=== PATIENT | female | born 1945 | race Caucasian/White ===

== ENCOUNTER → 2016-05-11 | Outpatient (CLI) | payer MEDICARE, OTHER ==
[~2016-05-11] VITALS: Ht 158.8 cm; Wt 77.1 kg
[~2016-05-11] MED LIST: ADENOSINE IV ONE; CELE100C82 PO; ETH1T PO; FESO4TAB PO; GIVE UN DILUTED IV ONE; LISI-646 PO; NAPR220C PO; ROPI2TAB31 PO; SIMV10TA84 PO; TRAZ50TA2 PO
== END | disposition home or self-care (01) ==
LOC: Rad HDHVI 10:01
PROVIDERS: ATTEND Internal Medicine Cardiovascular Disease
DX: R10.30 Lower abdominal pain, unspecified (principal); I10 Essential (primary) hypertension; E78.00 Pure hypercholesterolemia, unspecified
CPT/HCPCS: 78452; 93005; 96374; 96375; A9500; J0153

== ENCOUNTER → 2016-05-12 | Outpatient (CLI) | payer MEDICARE, OTHER ==
[~2016-05-12] MED LIST changes: -ADENOSINE IV ONE; -GIVE UN DILUTED IV ONE
== END | disposition home or self-care (01) ==
LOC: Rad HDHVI 09:29
PROVIDERS: ATTEND Internal Medicine Cardiovascular Disease
DX: K42.9 Umbilical hernia without obstruction or gangrene (principal); K59.00 Constipation, unspecified; I70.8 Atherosclerosis of other arteries; I70.0 Atherosclerosis of aorta
CPT/HCPCS: 74176

== ENCOUNTER → 2016-08-22 | Outpatient (CLI) | payer MEDICARE, OTHER ==
[2016-08-22 12:31] LABS: Basophils # (auto) 0.1 uL; Basophils % (auto) 0.7 % (0.0-2.0); DEFINITIVE VIEW TRANSMISSION; Eosinophils # (auto) 0 uL; Eosinophils % (auto) 0.5 % (0.0-7.0); Hematocrit 43.3 % (36.0-46.0); Hemoglobin 14.2 g/dL (12.2-16.2); Lymphocytes # (auto) 1.4 uL; Lymphocytes % (auto) 16.3 % (10.0-50.0); Mean Corpuscular Hemoglobin 26.2 pg (28.0-32.0); Mean Corpuscular Hgb Conc. 32.8 g/dL (32.0-36.0); Mean Corpuscular Volume 79.9 fL (80.0-100.0); Mean Platelet Volume 11.3 fL (7.4-10.4); Monocytes # (auto) 0.5 uL; Neutrophils # (auto) 6.6 uL; Neutrophils % (auto) 76.5 % (37.0-80.0); Platelet Count (auto) 358 10^3/uL (140-450); Red Cell Distribution Width 18.4 % (11.6-16.0); White Blood Cell 8.6 10^3/uL (4.4-10.8)
[2016-08-22 12:33] LABS: Urine Bilirubin Negative (Negative); Urine Blood Negative /uL (Negative); Urine Color Yellow (Yellow); Urine Glucose Normal (Normal); Urine Ketone Negative (Negative); Urine Nitrite Negative (Negative); Urine Urobilinogen Normal (Negative); Urine pH 5.5 (5.0-8.0)
[2016-08-22 12:52] LABS: Albumin 3.9 g/dL (3.4-5.0); Bilirubin, Direct 0.2 mg/dL (0-0.2); Bilirubin, Total 0.4 mg/dL (0.2-1.0); Calcium 9.2 mg/dL (8.5-10.1); Potassium 4.9 mmol/L (3.5-5.1); Total Protein 7.7 g/dL (6.4-8.2)
== END | disposition home or self-care (01) ==
LOC: LAB 07:58
PROVIDERS: ATTEND Internal Medicine Cardiovascular Disease
DX: I10 Essential (primary) hypertension (principal); E78.00 Pure hypercholesterolemia, unspecified; K74.1 Hepatic sclerosis; E11.9 Type 2 diabetes mellitus without complications; E03.9 Hypothyroidism, unspecified; D64.9 Anemia, unspecified; E55.9 Vitamin D deficiency, unspecified; N39.0 Urinary tract infection, site not specified
CPT/HCPCS: 36415; 80048; 80061; 80076; 81003; 82306; 83036; 84443; 85025

== ENCOUNTER → 2017-03-28 | Outpatient (CLI) | payer MEDICARE ==
[~2017-03-28] VITALS: Ht 33 cm; Wt 0.5 kg
[~2017-03-28] MED LIST changes: +CYANOCOBALAMIN (B-12) 1000 MCG/1 ML VIAL IM ONE; +CYANOCOBALAMIN (B-12) 1000 MCG/1 ML VIAL ONE; +LEVOFLOXACIN 500 MG TAB ONE; +LEVOFLOXACIN 500 MG TAB PO ONE
[2017-03-28 10:15] VITALS: BP 125/58
[2017-03-28 11:20] VITALS: BP 124/70
[2017-03-28 16:42] LABS: Basophils # (auto) 0 uL; Eosinophils # (auto) 0 uL; Eosinophils % (auto) 0.5 % (0.0-7.0); Hematocrit 40.3 % (36.0-46.0); Mean Corpuscular Volume 80.7 fL (80.0-100.0); Monocytes # (auto) 0.5 uL; Neutrophils # (auto) 3.2 uL; Red Blood Cells 4.99 10^6/uL (4.0-5.20); White Blood Cell 4.7 10^3/uL (4.4-10.8)
[2017-03-28 16:55] LABS: Albumin 3.1 g/dL (3.4-5.0); BUN/Creatinine Ratio 17.7; Bilirubin, Total 0.1 mg/dL (0.2-1.0); Calcium 8.3 mg/dL (8.5-10.1); Potassium 3.5 mmol/L (3.5-5.1); Total Protein 6.5 g/dL (6.4-8.2)
[2017-03-28 16:57] LABS: Basophils % (auto) 0.5 % (0.0-2.0); Lymphocytes % (auto) 19.1 % (10.0-50.0); Monocytes % (auto) 10.7 % (0.0-12.0); Neutrophils % (auto) 69.2 % (37.0-80.0)
[2017-03-28 16:58] LABS: Hemoglobin 13.2 g/dL (12.2-16.2); Lymphocytes # (auto) 0.9 uL; Mean Corpuscular Hemoglobin 26.4 pg (28.0-32.0); Mean Corpuscular Hgb Conc. 32.7 g/dL (32.0-36.0); Nucleated Red Blood Cells % 0.9 %; Platelet Count (auto) 334 10^3/uL (140-450); Red Cell Distribution Width 18.9 % (11.8-14.3)
== END | disposition home or self-care (01) ==
LOC: CHF HDHVI 10:21
PROVIDERS: ATTEND Internal Medicine Cardiovascular Disease
DX: J40 Bronchitis, not specified as acute or chronic (principal); D64.9 Anemia, unspecified; E55.9 Vitamin D deficiency, unspecified; I10 Essential (primary) hypertension
CPT/HCPCS: 36415; 71046; 80053; 82306; 85025; 96372; G0463; J3420

== ENCOUNTER → 2017-04-02 | Outpatient (CLI) | payer MEDICARE ==
[~2017-04-02] MED LIST changes: -LEVOFLOXACIN 500 MG TAB ONE; -LEVOFLOXACIN 500 MG TAB PO ONE
[2017-04-02 12:00] VITALS: BP 141/64
[2017-04-02 13:10] VITALS: BP 127/73
== END | disposition home or self-care (01) ==
LOC: CHF HDHVI 11:58
PROVIDERS: ATTEND Internal Medicine Cardiovascular Disease
DX: D64.9 Anemia, unspecified (principal); R09.3 Abnormal sputum; R05 Cough
CPT/HCPCS: 87070; 87205; 96372; G0463; J3420

== ENCOUNTER → 2017-08-14 | Outpatient (CLI) | payer MEDICARE ==
[~2017-08-14] MED LIST changes: -CYANOCOBALAMIN (B-12) 1000 MCG/1 ML VIAL IM ONE; -CYANOCOBALAMIN (B-12) 1000 MCG/1 ML VIAL ONE
[2017-08-14 16:01] LABS: Albumin 3.6 g/dL (3.4-5.0); BUN/Creatinine Ratio 24.7; Calcium 8.8 mg/dL (8.5-10.1); Potassium 4.1 mmol/L (3.5-5.1)
[2017-08-14 16:03] LABS: Bilirubin, Total 0.3 mg/dL (0.2-1.0); Total Protein 7.5 g/dL (6.4-8.2)
[2017-08-14 16:09] LABS: Basophils # (auto) 0.1 uL; Basophils % (auto) 0.6 % (0.0-2.0); Eosinophils # (auto) 0.1 uL; Monocytes # (auto) 0.7 uL; Nucleated Red Blood Cells % 0.2 %
[2017-08-14 16:11] LABS: Eosinophils % (auto) 0.7 % (0.0-7.0); Hematocrit 43.5 % (36.0-46.0); Lymphocytes # (auto) 0.8 uL; Lymphocytes % (auto) 9.5 % (10.0-50.0); Mean Corpuscular Hemoglobin 26.1 pg (28.0-32.0); Mean Corpuscular Hgb Conc. 32.2 g/dL (32.0-36.0); Mean Corpuscular Volume 81.2 fL (80.0-100.0); Monocytes % (auto) 7.5 % (0.0-12.0); Neutrophils # (auto) 7.1 uL; Neutrophils % (auto) 81.7 % (37.0-80.0); Platelet Count (auto) 373 10^3/uL (140-450); Red Blood Cells 5.36 10^6/uL (4.0-5.20); White Blood Cell 8.7 10^3/uL (4.4-10.8)
== END | disposition home or self-care (01) ==
LOC: LAB 12:01
PROVIDERS: ATTEND Internal Medicine
DX: D64.9 Anemia, unspecified (principal); R53.81 Other malaise; I10 Essential (primary) hypertension; E11.9 Type 2 diabetes mellitus without complications; E03.9 Hypothyroidism, unspecified; E78.00 Pure hypercholesterolemia, unspecified
CPT/HCPCS: 36415; 80053; 85025

== ENCOUNTER 2017-09-21 07:46 | Emergency (ER) | payer MEDICARE ==
[~2017-09-21] VITALS: Ht 157.5 cm; Wt 68.0 kg
[2017-09-21 07:56] VITALS: BP 153/53
[2017-09-21] MEDS ORDERED: KETOROLAC TROMETH 60MG/2ML VIAL IM ONE (08:45)
== END 2017-09-21 09:07 | disposition home or self-care (01) ==
LOC: ER 07:46
DX: S46.912A Strain of unspecified muscle, fascia and tendon at shoulder and upper arm level, left arm, initial encounter (principal); K21.9 Gastro-esophageal reflux disease without esophagitis; E78.5 Hyperlipidemia, unspecified; I10 Essential (primary) hypertension; Z90.710 Acquired absence of both cervix and uterus; Z90.49 Acquired absence of other specified parts of digestive tract; Z88.0 Allergy status to penicillin; Z88.8 Allergy status to other drugs, medicaments and biological substances; W18.39XA Other fall on same level, initial encounter; Y93.89 Activity, other specified; Y92.89 Other specified places as the place of occurrence of the external cause; Y99.8 Other external cause status
CPT/HCPCS: 73030; 93005; 96372; 99284; J1885

== ENCOUNTER 2017-09-21 21:13 | Emergency (ER) | payer MEDICARE ==
[~2017-09-21] VITALS: Ht 167.6 cm; Wt 63.5 kg
[2017-09-21 22:14] LABS: Urine Bacteria FEW /hpf (None Seen); Urine Blood Negative /uL (Negative); Urine Mucus FEW (None Seen); Urine Specific Gravity 1.033 (1.001-1.035); Urine WBC 19 /hpf (0 - 5)
[2017-09-22] MEDS ORDERED: KETOROLAC TROMETH 60MG/2ML VIAL IM ONE (01:15)
[2017-09-22 01:54] VITALS: BP 145/76
== END 2017-09-22 01:53 | disposition home or self-care (01) ==
LOC: EDBD 21:13 → ER 21:16
DX: M23.92 Unspecified internal derangement of left knee (principal); K21.9 Gastro-esophageal reflux disease without esophagitis; E78.5 Hyperlipidemia, unspecified; I10 Essential (primary) hypertension; Z90.710 Acquired absence of both cervix and uterus; Z88.0 Allergy status to penicillin; Z91.041 Radiographic dye allergy status; W20.8XXA Other cause of strike by thrown, projected or falling object, initial encounter; Y93.89 Activity, other specified; Y92.89 Other specified places as the place of occurrence of the external cause; Y99.8 Other external cause status
CPT/HCPCS: 73552; 73562; 81001; 96372; 99285; J1885

== ENCOUNTER → 2018-01-17 | Outpatient (CLI) | payer MEDICARE ==
[~2018-01-17] VITALS: Ht 157.5 cm; Wt 72.6 kg
[~2018-01-17] MED LIST changes: +ADENOSINE 61 MG in GIVE UN-DILUTED 0 ML IV ONE; +ADENOSINE 90 MG/30 ML INJ IV ONE
== END | disposition home or self-care (01) ==
LOC: Rad HDHVI 08:32
PROVIDERS: ATTEND Internal Medicine Cardiovascular Disease
DX: I10 Essential (primary) hypertension (principal); S83.2 Tear of meniscus, current injury; E78.5 Hyperlipidemia, unspecified; I20.9 Angina pectoris, unspecified; F43.9 Reaction to severe stress, unspecified; F41.9 Anxiety disorder, unspecified; X58.XXXS Exposure to other specified factors, sequela
CPT/HCPCS: 78452; 93005; 96374; 96375; A9500; J0153

== ENCOUNTER → 2018-04-23 | Outpatient (CLI) | payer MEDICARE ==
[~2018-04-23] MED LIST changes: -ADENOSINE 61 MG in GIVE UN-DILUTED 0 ML IV ONE; -ADENOSINE 90 MG/30 ML INJ IV ONE
== END | disposition home or self-care (01) ==
LOC: Rad HDHVI 15:17
PROVIDERS: ATTEND Internal Medicine
DX: M19.071 Primary osteoarthritis, right ankle and foot (principal)
CPT/HCPCS: 73630

== ENCOUNTER → 2018-11-14 | Outpatient (CLI) | payer MEDICARE ==
[2018-11-14 12:09] LABS: Urine Blood Negative /uL (Negative); Urine Specific Gravity 1.017 (1.001-1.035)
[2018-11-14 12:16] LABS: Basophils # (auto) 0.1 uL; Basophils % (auto) 0.8 % (0.0-2.0); Eosinophils # (auto) 0.1 uL; Lymphocytes # (auto) 0.7 uL; Lymphocytes % (auto) 9.5 % (10.0-50.0); Monocytes # (auto) 0.6 uL
[2018-11-14 12:18] LABS: Eosinophils % (auto) 1.8 % (0.0-7.0); Hematocrit 40.7 % (36.0-46.0); Hemoglobin 13.2 g/dL (12.2-16.2); Mean Corpuscular Hemoglobin 26.7 pg (28.0-32.0); Mean Corpuscular Hgb Conc. 32.4 g/dL (32.0-36.0); Mean Corpuscular Volume 82.3 fL (80.0-100.0); Monocytes % (auto) 8.2 % (0.0-12.0); Neutrophils # (auto) 6.2 uL; Neutrophils % (auto) 79.7 % (37.0-80.0); Platelet Count (auto) 331 10^3/uL (140-450); Red Blood Cells 4.94 10^6/uL (4.0-5.20); Red Cell Distribution Width 18.4 % (11.8-14.3); White Blood Cell 7.7 10^3/uL (4.4-10.8)
[2018-11-14 12:44] LABS: Free T4 (Free Thyroxine) 1.12 ng/dL (0.89-1.76)
[2018-11-14 12:49] LABS: Albumin 3.3 g/dL (3.4-5.0); BUN/Creatinine Ratio 14.1; Calcium 8.7 mg/dL (8.5-10.1); Potassium 3.8 mmol/L (3.5-5.1)
[2018-11-14 12:52] LABS: Bilirubin, Total 0.2 mg/dL (0.2-1.0); Total Protein 6.6 g/dL (6.4-8.2)
== END | disposition home or self-care (01) ==
LOC: LAB 08:51
PROVIDERS: ATTEND Internal Medicine
DX: E03.9 Hypothyroidism, unspecified (principal); K90.9 Intestinal malabsorption, unspecified; N39.0 Urinary tract infection, site not specified; D51.9 Vitamin B12 deficiency anemia, unspecified; Z79.899 Other long term (current) drug therapy
CPT/HCPCS: 36415; 80053; 80061; 81003; 82306; 82607; 83036; 84439; 84443; 85025; 87086

== ENCOUNTER → 2018-11-15 | Outpatient (CLI) | payer MEDICARE ==
[~2018-11-15] MED LIST changes: +CYANOCOBALAMIN (B-12) 1000 MCG/1 ML VIAL ONE
== END | disposition home or self-care (01) ==
LOC: Rad HDHVI 11:01
PROVIDERS: ATTEND Internal Medicine
DX: M79.604 Pain in right leg (principal); W19.XXXA Unspecified fall, initial encounter
CPT/HCPCS: 73590; J3420

== ENCOUNTER 2019-04-03 07:22 | Emergency (ER) | payer MEDICARE ==
[~2019-04-03] VITALS: Ht 157.5 cm; Wt 70.3 kg
[~2019-04-03 07:22] MED LIST changes: -CYANOCOBALAMIN (B-12) 1000 MCG/1 ML VIAL ONE
[2019-04-03 07:50] LABS: Hemoglobin 12.9 g/dL (12.2-16.2); White Blood Cell 11.2 10^3/uL (4.4-10.8)
[2019-04-03 07:52] LABS: Hematocrit 38.9 % (36.0-46.0); Mean Corpuscular Hemoglobin 27.3 pg (28.0-32.0); Mean Corpuscular Hgb Conc. 33.3 g/dL (32.0-36.0); Mean Corpuscular Volume 82.1 fL (80.0-100.0); Platelet Count (auto) 404 10^3/uL (140-450); Red Blood Cells 4.73 10^6/uL (4.0-5.20); Red Cell Distribution Width 17.1 % (11.8-14.3)
[2019-04-03 07:56] LABS: Band Neutrophils % (manual) 0; Basophils % (manual) 0 (0.0-2.0); Blast Cells 0; Metamyelocytes % 0; Myelocytes % 0; Promyelocytes % 0; Reactive Lymphocytes 0
[2019-04-03 08:06] LABS: Eosinophils % (manual) 1 (0-7); Lymphocytes % (manual) 14 (10.0-50.0); Monocytes % (manual) 7 (0-12)
[2019-04-03 08:10] LABS: Albumin 3.2 g/dL (3.4-5.0); Calcium 8.3 mg/dL (8.5-10.1); Potassium 3.6 mmol/L (3.5-5.1)
[2019-04-03 08:12] LABS: BUN/Creatinine Ratio 20.3; Bilirubin, Total 0.1 mg/dL (0.2-1.0); Total Protein 6.4 g/dL (6.4-8.2)
[2019-04-03 09:35] LABS: Urine Bacteria FEW /hpf (None Seen); Urine Blood Negative /uL (Negative); Urine Specific Gravity 1.016 (1.001-1.035); Urine WBC 1 /hpf (0 - 5)
[2019-04-03] MEDS ORDERED: ONDANSETRON HCL 4 MG/2 ML VIAL IV ONE (10:15)
[2019-04-03] MEDS ORDERED: MORPHINE SULF INJ 2 MG/ML SYRINGE 1ML IV ONE (10:15)
[2019-04-03 10:49] VITALS: BP 146/71
== END 2019-04-03 12:48 | disposition home or self-care (01) ==
LOC: ER 07:22
DX: I83.893 Varicose veins of bilateral lower extremities with other complications (principal); I10 Essential (primary) hypertension; N39.0 Urinary tract infection, site not specified; D72.829 Elevated white blood cell count, unspecified; F41.9 Anxiety disorder, unspecified; K21.9 Gastro-esophageal reflux disease without esophagitis; E78.5 Hyperlipidemia, unspecified; Z88.0 Allergy status to penicillin; Z91.041 Radiographic dye allergy status
CPT/HCPCS: 36415; 71045; 80053; 81001; 83880; 85007; 85027; 93970; 99284; J2270; J2405

== ENCOUNTER → 2019-04-04 | Outpatient (CLI) | payer MEDICARE | END | disposition home or self-care (01) | LOC: LAB 10:25 | PROVIDERS: ATTEND Internal Medicine Cardiovascular Disease | DX: R94.4 Abnormal results of kidney function studies (principal) | CPT/HCPCS: 36415; 82565 ==

== ENCOUNTER → 2019-04-07 | Outpatient (CLI) | payer MEDICARE ==
[~2019-04-07] VITALS: Ht 30.5 cm; Wt 70.3 kg
[~2019-04-07] MED LIST changes: +diphenhdrAMINE HCL 50 MG/1 ML VL IM ONE; +diphenhdrAMINE HCL 50 MG/1 ML VL ONE; +methylPREDNISolone SOD SUCC 125 MG/2 ML VL IV ONE; +methylPREDNISolone SOD SUCC 125 MG/2 ML VL ONE
[2019-04-07 10:05] VITALS: BP 133/61
[2019-04-07 10:08] VITALS: BP 133/61
--- NOTE | 2019-04-07 10:15 | NUR ---
IV insertion IV access obtained, via clean sterile technique by inserting RFA gauge catheter at after attempt(s). IV secured properly. No trauma to site. Patient tolerated procedure well.
--- NOTE | 2019-04-07 10:55 | NUR ---
IV removal IV DC'd with sterile technique, catheter fully intact. Pressure dressing applied to site. Patient tolerated procedure well. Discharged with aftercare instructions per MD. NOTE: BY NEFTALI WEBBER
[2019-04-07 11:00] VITALS: BP 147/59
--- NOTE | 2019-04-07 11:00 | NUR ---
Discharge Instructions See e-MAR for any mediations given with this visit. Patient education given on disease process. Patient verbalized understanding. Previous labs reviewed. Patient discharged in stable condition with after care instructions and follow up appointment. MEDICATIONS SOLUMEDROL IVP BENADRYL IVP MEDICATION GIVEN PROPHYLAXIS, PATIENT ALLERGIC TO IODINE, TOLERATED WELL 0 REACTIONS
== END | disposition home or self-care (01) ==
LOC: Rad HDHVI 10:00
PROVIDERS: ATTEND Internal Medicine Cardiovascular Disease
DX: I70.0 Atherosclerosis of aorta (principal); K42.9 Umbilical hernia without obstruction or gangrene; R10.9 Unspecified abdominal pain; I10 Essential (primary) hypertension; K21.9 Gastro-esophageal reflux disease without esophagitis; N20.0 Calculus of kidney; K57.92 Diverticulitis of intestine, part unspecified, without perforation or abscess without bleeding; Z90.710 Acquired absence of both cervix and uterus
CPT/HCPCS: 74177; G0463; J1200; J2930

== ENCOUNTER → 2019-04-08 | Outpatient (CLI) | payer MEDICARE ==
[~2019-04-08] MED LIST changes: -diphenhdrAMINE HCL 50 MG/1 ML VL IM ONE; -diphenhdrAMINE HCL 50 MG/1 ML VL ONE; -methylPREDNISolone SOD SUCC 125 MG/2 ML VL IV ONE; -methylPREDNISolone SOD SUCC 125 MG/2 ML VL ONE
[2019-04-08 13:15] VITALS: BP 151/65
--- NOTE | 2019-04-08 13:15 | NUR ---
chf pt arrived at the chf clinic for s/s of angina. applied 02, ekg done, labs drawn pt took home spencer toscano
[2019-04-08 14:20] VITALS: BP 158/67
--- NOTE | 2019-04-08 14:20 | NUR ---
Discharge Instructions See e-MAR for any mediations given with this visit. Patient education given on disease process. Patient verbalized understanding. Previous labs reviewed. Patient discharged in stable condition with after care instructions and follow up appointment. medications pt home motrin 0 c/0 pain upon discharge ekg normal sinus rhythm
[2019-04-08 14:41] LABS: Magnesium 2.7 mg/dL (1.6-2.6); Potassium 4.4 mmol/L (3.5-5.1)
== END | disposition home or self-care (01) ==
LOC: Rad HDHVI 13:20
PROVIDERS: ATTEND Internal Medicine Cardiovascular Disease
DX: E87.6 Hypokalemia (principal); R94.4 Abnormal results of kidney function studies; J44.9 Chronic obstructive pulmonary disease, unspecified; I10 Essential (primary) hypertension; E78.5 Hyperlipidemia, unspecified; I20.9 Angina pectoris, unspecified
CPT/HCPCS: 36415; 82565; 83735; 84132; 84520; 93005; 93306; G0463

== ENCOUNTER 2019-04-13 17:36 | Emergency (ER) | payer MEDICARE ==
[~2019-04-13] VITALS: Ht 162.6 cm; Wt 68.5 kg
[2019-04-13 17:40] VITALS: BP 140/64
[2019-04-13] MEDS ORDERED: KETOROLAC TROMETH 60MG/2ML VIAL IM ONE (17:45)
[2019-04-13] MEDS ORDERED: KETOROLAC TROMETH 60MG/2ML VIAL ONE (17:45)
== END 2019-04-13 21:27 | disposition left against medical advice (07) ==
LOC: EDBD 17:36 → ER 17:39
DX: M54.5 Low back pain (principal); Z53.21 Procedure and treatment not carried out due to patient leaving prior to being seen by health care provider
CPT/HCPCS: 93005; J1885

== ENCOUNTER → 2019-04-14 | Outpatient (CLI) | payer MEDICARE ==
[~2019-04-14] VITALS: Ht 157.5 cm; Wt 69.4 kg
[~2019-04-14] MED LIST changes: +ADENOSINE 58 MG in GIVE UN-DILUTED 0 ML IV ONE; +ADENOSINE 90 MG/30 ML INJ IV ONE
== END | disposition home or self-care (01) ==
LOC: Rad HDHVI 12:34
PROVIDERS: ATTEND Internal Medicine Cardiovascular Disease
DX: Z09 Encounter for follow-up examination after completed treatment for conditions other than malignant neoplasm (principal); M67.471 Ganglion, right ankle and foot; I10 Essential (primary) hypertension; K21.9 Gastro-esophageal reflux disease without esophagitis; Z87.442 Personal history of urinary calculi; Z79.899 Other long term (current) drug therapy; Z88.0 Allergy status to penicillin; Z88.8 Allergy status to other drugs, medicaments and biological substances; Z91.041 Radiographic dye allergy status
CPT/HCPCS: 78452; 93005; 96374; 96375; A9500; J0153

== ENCOUNTER → 2019-04-18 | Outpatient (CLI) | payer MEDICARE ==
[~2019-04-18] MED LIST changes: -ADENOSINE 58 MG in GIVE UN-DILUTED 0 ML IV ONE; -ADENOSINE 90 MG/30 ML INJ IV ONE
[2019-04-18 12:20] LABS: Hemoglobin 13.1 g/dL (12.2-16.2)
[2019-04-18 12:26] LABS: Hematocrit 39.5 % (36.0-46.0); Mean Corpuscular Hemoglobin 27.3 pg (28.0-32.0); Mean Corpuscular Hgb Conc. 33.1 g/dL (32.0-36.0); Mean Corpuscular Volume 82.4 fL (80.0-100.0); Platelet Count (auto) 392 10^3/uL (140-450); Red Blood Cells 4.79 10^6/uL (4.0-5.20); Red Cell Distribution Width 17.1 % (11.8-14.3); White Blood Cell 11.1 10^3/uL (4.4-10.8)
[2019-04-18 12:32] LABS: Basophils % (manual) 0 (0.0-2.0); Blast Cells 0; Eosinophils % (manual) 0 (0-7); Metamyelocytes % 0; Promyelocytes % 0; Reactive Lymphocytes 0
[2019-04-18 12:40] LABS: Potassium 4.2 mmol/L (3.5-5.1)
[2019-04-18 12:49] LABS: Albumin 3.3 g/dL (3.4-5.0); BUN/Creatinine Ratio 35.7; Bilirubin, Total 0.2 mg/dL (0.2-1.0); Calcium 8.7 mg/dL (8.5-10.1); Total Protein 6.4 g/dL (6.4-8.2)
[2019-04-18 14:14] LABS: Band Neutrophils % (manual) 2; Lymphocytes % (manual) 7 (10.0-50.0); Monocytes % (manual) 4 (0-12); Myelocytes % 2
== END | disposition home or self-care (01) ==
LOC: LAB 08:22
PROVIDERS: ATTEND Internal Medicine
DX: D64.9 Anemia, unspecified (principal); Z01.83 Encounter for blood typing
CPT/HCPCS: 36415; 80053; 85007; 85027; 86900; 86901

== ENCOUNTER → 2019-04-22 | Outpatient (CLI) | payer MEDICARE ==
[2019-04-22 16:00] LABS: Albumin 3.5 g/dL (3.4-5.0); Calcium 8.9 mg/dL (8.5-10.1); Potassium 4.5 mmol/L (3.5-5.1)
[2019-04-22 16:04] LABS: BUN/Creatinine Ratio 25.6; Bilirubin, Total 0.3 mg/dL (0.2-1.0)
== END | disposition home or self-care (01) ==
LOC: LAB 10:33
PROVIDERS: ATTEND Internal Medicine
DX: I10 Essential (primary) hypertension (principal)
CPT/HCPCS: 36415; 80053

== ENCOUNTER → 2019-05-19 | Outpatient (CLI) | payer MEDICARE ==
[2019-05-19 12:06] LABS: White Blood Cell 8.7 10^3/uL (4.4-10.8)
[2019-05-19 12:09] LABS: Hematocrit 38.1 % (36.0-46.0); Hemoglobin 12.3 g/dL (12.2-16.2); Mean Corpuscular Hemoglobin 26.8 pg (28.0-32.0); Mean Corpuscular Hgb Conc. 32.2 g/dL (32.0-36.0); Mean Corpuscular Volume 83.1 fL (80.0-100.0); Platelet Count (auto) 354 10^3/uL (140-450); Red Blood Cells 4.59 10^6/uL (4.0-5.20); Red Cell Distribution Width 17.3 % (11.8-14.3)
[2019-05-19 12:10] LABS: Potassium 3.5 mmol/L (3.5-5.1)
[2019-05-19 12:19] LABS: Albumin 2.9 g/dL (3.4-5.0); BUN/Creatinine Ratio 27.3; Bilirubin, Total 0.4 mg/dL (0.2-1.0); Calcium 8.5 mg/dL (8.5-10.1); Total Protein 6.1 g/dL (6.4-8.2)
[2019-05-19 12:24] LABS: Basophils % (manual) 0 (0.0-2.0); Blast Cells 0; Myelocytes % 0; Promyelocytes % 0; Reactive Lymphocytes 0
[2019-05-19 13:48] LABS: Band Neutrophils % (manual) 1; Eosinophils % (manual) 1 (0-7); Lymphocytes % (manual) 18 (10.0-50.0); Metamyelocytes % 1; Monocytes % (manual) 3 (0-12)
== END | disposition home or self-care (01) ==
LOC: LAB 09:06
PROVIDERS: ATTEND Internal Medicine
DX: E03.9 Hypothyroidism, unspecified (principal); D64.9 Anemia, unspecified
CPT/HCPCS: 36415; 80053; 84443; 85007; 85027

== ENCOUNTER → 2019-05-28 | Outpatient (CLI) | payer MEDICARE | END | disposition home or self-care (01) | LOC: Rad HDHVI 08:53 | PROVIDERS: ATTEND Internal Medicine | DX: I82.401 Acute embolism and thrombosis of unspecified deep veins of right lower extremity (principal) | CPT/HCPCS: 93971 ==

== ENCOUNTER → 2019-06-17 | Outpatient (CLI) | payer MEDICARE ==
[2019-06-17 16:10] LABS: Urine Blood Negative /uL (Negative); Urine Specific Gravity 1.011 (1.001-1.035)
== END | disposition home or self-care (01) ==
LOC: LAB 12:38
PROVIDERS: ATTEND Internal Medicine Cardiovascular Disease
DX: N39.0 Urinary tract infection, site not specified (principal)
CPT/HCPCS: 81003

== ENCOUNTER → 2019-07-15 | Outpatient (CLI) | payer MEDICARE ==
[~2019-07-15] MED LIST changes: +BACITRACIN TOP OINT 1 UD PKG TOP ONE; +IOHEXOL 350 MG/ML 100ML IJ ONE; +POTASSIUM CHL 20 Meq TABLET PO ONE; +VANCOMYCIN 1GM/250ML 250 ML IV ONE; +diphenhdrAMINE HCL 50 MG/1 ML VL IV ONE; +diphenhdrAMINE HCL 50 MG/1 ML VL ONE; +methylPREDNISolone SOD SUCC 125 MG/2 ML VL IV ONE; +methylPREDNISolone SOD SUCC 125 MG/2 ML VL ONE
[2019-07-15 12:11] VITALS: BP 135/72
--- NOTE | 2019-07-15 12:11 | NUR ---
CHF PT ARRIVED TO THE CHF CLINIC FROM BACK OFFICE WITH ORDERS FOR CTA LOWER EXTREMITY RUN OFF. R/O CELLULITIS, PT HAS BILATERAL LEG EDEMA, AND A WOUND ON THE L CALF. CONFIRMED ALLERGIES TO IV CONTRAST. A/O X4.
--- NOTE | 2019-07-15 12:20 | NUR ---
IV insertion IV access obtained, via clean sterile technique by inserting 18 gauge catheter at after attempt(s). IV secured properly. No trauma to site. Patient tolerated procedure well. stat labs sent per md order.
--- NOTE | 2019-07-15 12:30 | NUR ---
MEDS: VANCO 1 GM IVPB STARTED OVER ONE HOUR PER DR. QUIÑONES.
[2019-07-15 13:18] LABS: BUN/Creatinine Ratio 22.2; Calcium 8.7 mg/dL (8.5-10.1); Magnesium 2.4 mg/dL (1.6-2.6)
--- NOTE | 2019-07-15 13:30 | NUR ---
WOUND CARE WOUND CLEANED WITH NS AND IAN, BACITRACIN APPLIED TO WOUND AND COVERED WITH OPTI FOAM BANDAGE. NOTE WOUND CARE DONE BY STEWART ORELLANA
--- NOTE | 2019-07-15 13:32 | NUR ---
VANCOMYCIN INFUSION COMPLETED WITH NO ADVERSE REACTIONS NOTED.
--- NOTE | 2019-07-15 13:40 | NUR ---
MEDS: SOLUMEDROL 125MG SIVP GIVEN PER MD ORDER.
--- NOTE | 2019-07-15 13:44 | NUR ---
MEDS: BENADRYL 50 MG SIVP GIVEN PER MD ORDER
--- NOTE | 2019-07-15 13:46 | NUR ---
PT. TO CT VIA AMBULATION WITH TECH ASSIST.
--- NOTE | 2019-07-15 14:05 | NUR ---
PT. BACK TO CLINIC. TOLERATED PROCEDURE WELL. PT. MEDICATED WITH K-DUR [address] QUIÑONES.
--- NOTE | 2019-07-15 14:15 | NUR ---
MED REC: MEDS REVIEWED WITH DR. QUIÑONES. PT. HAS BEEN TAKING BOTH LASIX 40MG BID AND BUMEX 1 MG BID WITH C/O NAUSEA AT NIGHT TIME SO PT. HAS BEEN NON-COMPLIANT WITH THESE MEDS; PT. INSTRUCTED TO INCREASE POTASSIUM TO 10 ME[address] PO BID PER [address] QUIÑONES AFTER LABS REVIEWED WITH MD AND NOTED LOWER EXT. EDEMA IMPROVED WITH ELEVATION OF FEET. PT. INSTRUCTED TO HOLD BUMEX UNTIL FIRTHER ORDERS ON FOLLOW UP APPT. WITH IN ONE WEEK. ALSO INSTRUCTED PT. TO BE COMPLIANT WITH HER PROTONIX BID REGIMEN TO PREVENT GERD SYMPTOMS.
--- NOTE | 2019-07-15 14:27 | NUR ---
IV removal IV DC'd with sterile technique, catheter fully intact. Pressure dressing applied to site. Patient tolerated procedure well. Discharged with aftercare instructions per MD. NOTE: PT WITH NO C/O AT THIS TIME AOX4, PWD, NAD. FOLLOW UP APPT. 07/[address] QUIÑONES.
== END | disposition home or self-care (01) ==
LOC: Rad HDHVI 12:01
PROVIDERS: ATTEND Internal Medicine
DX: L03.116 Cellulitis of left lower limb (principal); R00.2 Palpitations; I10 Essential (primary) hypertension; K90.9 Intestinal malabsorption, unspecified; R60.0 Localized edema
CPT/HCPCS: 36415; 75635; 80048; 82306; 83735; 96365; 96375; G0463; J1200; J2930; J3370; Q9967; 96374

== ENCOUNTER → 2019-11-04 | Outpatient (CLI) | payer MEDICARE ==
[~2019-11-04] MED LIST changes: -BACITRACIN TOP OINT 1 UD PKG TOP ONE; -IOHEXOL 350 MG/ML 100ML IJ ONE; -POTASSIUM CHL 20 Meq TABLET PO ONE; -VANCOMYCIN 1GM/250ML 250 ML IV ONE; -diphenhdrAMINE HCL 50 MG/1 ML VL IV ONE; -diphenhdrAMINE HCL 50 MG/1 ML VL ONE; -methylPREDNISolone SOD SUCC 125 MG/2 ML VL IV ONE; -methylPREDNISolone SOD SUCC 125 MG/2 ML VL ONE
[2019-11-04 12:20] LABS: Potassium 4.3 mmol/L (3.5-5.1)
[2019-11-04 12:30] LABS: Albumin 3.7 g/dL (3.4-5.0); Bilirubin, Total 0.2 mg/dL (0.2-1.0); Total Protein 7.2 g/dL (6.4-8.2)
== END | disposition home or self-care (01) ==
LOC: LAB 10:02
PROVIDERS: ATTEND Internal Medicine
DX: E78.5 Hyperlipidemia, unspecified (principal); I10 Essential (primary) hypertension; E03.9 Hypothyroidism, unspecified
CPT/HCPCS: 36415; 80053; 84443

== ENCOUNTER → 2019-12-05 | Outpatient (CLI) | payer MEDICARE | END | disposition home or self-care (01) | LOC: Rad HDHVI 10:57 | PROVIDERS: ATTEND Internal Medicine | DX: R42 Dizziness and giddiness (principal) ==

== ENCOUNTER → 2020-05-07 | Outpatient (CLI) | payer MEDICARE ==
[~2020-05-07] MED LIST changes: +ALPR0.25 PO; +FLUO1TAB14 PO; +FLUO1TAB3 PO; +FURO1TAB31 PO; +LISI2.5T47 PO; +PANT40TA2 PO; +POTA-220 PO; +QUET50TA PO; +RIVA10TA PO; +ROPI4TAB6 PO
== END | disposition home or self-care (01) ==
LOC: Rad HDHVI 13:35
PROVIDERS: ATTEND Internal Medicine
DX: I65.29 Occlusion and stenosis of unspecified carotid artery (principal)
CPT/HCPCS: 93880; 93970

== ENCOUNTER → 2020-06-08 | Outpatient (CLI) | payer MEDICARE | END | disposition home or self-care (01) | LOC: Rad HDHVI 09:12 | PROVIDERS: ATTEND Internal Medicine Cardiovascular Disease | DX: L03.116 Cellulitis of left lower limb (principal); R60.9 Edema, unspecified | CPT/HCPCS: 93970 ==

== ENCOUNTER → 2020-06-09 | Outpatient (CLI) | payer MEDICARE ==
[~2020-06-09] MED LIST changes: -ALPR0.25 PO; -FLUO1TAB14 PO; -FLUO1TAB3 PO; -FURO1TAB31 PO; -LISI2.5T47 PO; -PANT40TA2 PO; -POTA-220 PO; -QUET50TA PO; -RIVA10TA PO; -ROPI4TAB6 PO
== END | disposition home or self-care (01) ==
LOC: Rad HDHVI 16:11
PROVIDERS: ATTEND Internal Medicine Cardiovascular Disease
DX: I07.1 Rheumatic tricuspid insufficiency (principal); I27.21 Secondary pulmonary arterial hypertension; I10 Essential (primary) hypertension; B94.8 Sequelae of other specified infectious and parasitic diseases
CPT/HCPCS: 93306

== ENCOUNTER → 2020-07-07 | Outpatient (CLI) | payer MEDICARE ==
[~2020-07-07] VITALS: Ht 30.5 cm; Wt 0.5 kg
[~2020-07-07] MED LIST changes: +BACITRACIN TOP OINT 1 UD PKG TOP ONE
[2020-07-07 11:29] VITALS: BP 120/60
[2020-07-07 12:35] VITALS: BP 134/51
== END | disposition home or self-care (01) ==
LOC: Rad HDHVI 11:30
PROVIDERS: ATTEND Internal Medicine Cardiovascular Disease
DX: S81.001A Unspecified open wound, right knee, initial encounter (principal); S51.001A Unspecified open wound of right elbow, initial encounter; M25.461 Effusion, right knee; M77.8 Other enthesopathies, not elsewhere classified; X58.XXXA Exposure to other specified factors, initial encounter; Y93.89 Activity, other specified; Y92.89 Other specified places as the place of occurrence of the external cause; Y99.8 Other external cause status
CPT/HCPCS: 73700; G0463

== ENCOUNTER 2020-07-09 10:25 | Inpatient (IN) | payer MEDICARE ==
[~2020-07-09] VITALS: Ht 157.5 cm; Wt 76.7 kg
[~2020-07-09 10:25] MED LIST changes: -BACITRACIN TOP OINT 1 UD PKG TOP ONE
[2020-07-09] MEDS ORDERED: MORPHINE SULF INJ 2 MG/ML SYRINGE 1ML IV PRN (12:00)
[2020-07-09] MEDS ORDERED: HYDROcodone-ACET 10/325MG TAB PO PRN ×2 (12:00→13:15)
[2020-07-09] MEDS ORDERED: NITROGLYCERIN 0.4 MG SL TAB SL PRN (12:00)
[2020-07-09] MEDS ORDERED: FURO1TAB31 PO (12:17)
[2020-07-09] MEDS ORDERED: FLUO1TAB3 PO (12:17)
[2020-07-09] MEDS ORDERED: POTA-220 PO (12:17)
[2020-07-09] MEDS ORDERED: ROPI4TAB6 PO (12:17)
[2020-07-09] MEDS ORDERED: RIVA10TA PO (12:17)
[2020-07-09] MEDS ORDERED: PANT40TA2 PO (12:17)
[2020-07-09] MEDS ORDERED: QUET50TA PO (12:17)
[2020-07-09] MEDS ORDERED: LISI2.5T47 PO (12:17)
[2020-07-09] MEDS ORDERED: FLUO1TAB14 PO (12:17)
[2020-07-09] MEDS ORDERED: ALPR0.25 PO (12:17)
[2020-07-09 12:19] VITALS: BP 131/68
[2020-07-09] MEDS ORDERED: HYDROmorphone HCL 2 MG/ML VL IV PRN (12:45)
[2020-07-09 13:00] VITALS: BP 131/68
[2020-07-09] MEDS ORDERED: ALPRAZolam 0.25 MG TAB PO PRN (13:00)
[2020-07-09 14:33] LABS: Eosinophils # (auto) 0 10 ^3/uL (0-0.8); Lymphocytes # (auto) 0.8 10 ^3/uL (0.4-5.4); Monocytes # (auto) 0.6 10 ^3/uL (0-1.3)
[2020-07-09 14:35] LABS: Basophils # (auto) 0 10 ^3/uL (0-0.2); Basophils % (auto) 0.5 % (0.0-2.0); Eosinophils % (auto) 0.3 % (0.0-7.0); Hematocrit 35.5 % (36.0-46.0); Hemoglobin 11.7 g/dL (12.2-16.2); Mean Corpuscular Hemoglobin 26.2 pg (28.0-32.0); Mean Corpuscular Hgb Conc. 32.9 g/dL (32.0-36.0); Mean Corpuscular Volume 79.7 fL (80.0-100.0); Monocytes % (auto) 6.8 % (0.0-12.0); Neutrophils # (auto) 7.3 10 ^3/uL (1.6-8.6); Neutrophils % (auto) 83.4 % (37.0-80.0); Platelet Count (auto) 410 10^3/uL (140-450); Red Blood Cells 4.45 10^6/uL (4.0-5.20); Red Cell Distribution Width 19.5 % (11.8-14.3); White Blood Cell 8.7 10^3/uL (4.4-10.8)
[2020-07-09 14:53] LABS: INR 0.97 (0.9-1.15); Partial Thromboplastin Time 25.7 sec (23.0-31.2)
[2020-07-09 14:55] LABS: Albumin 3.1 g/dL (3.4-5.0); Calcium 8.4 mg/dL (8.5-10.1); Potassium 3.4 mmol/L (3.5-5.1)
[2020-07-09 14:57] LABS: Bilirubin, Total 0.2 mg/dL (0.2-1.0)
[2020-07-09 16:12] LABS: BUN/Creatinine Ratio 14.7
[2020-07-09 17:00] VITALS: BP 114/50
[2020-07-09 20:00] VITALS: BP 118/50
[2020-07-09] MEDS: PANTOPRAZOLE 40 MG TAB PO SCH (21:47)
[2020-07-09 22:00] VITALS: BP 118/50
[2020-07-09] MEDS ORDERED: ALPRAZolam 0.25 MG TAB PO SCH (22:00)
[2020-07-10 05:00] VITALS: BP 127/79
[2020-07-10 08:55] VITALS: BP 138/84
[2020-07-10] MEDS ORDERED: FLUoxetine HCL 20 MG CAP PO SCH (10:00)
[2020-07-10] MEDS ORDERED: ROPINIROLE 4 MG PO SCH (10:00)
[2020-07-10] MEDS: PANTOPRAZOLE 40 MG TAB PO SCH (10:00)
[2020-07-10] MEDS ORDERED: LISINOPRIL 10 MG TAB PO SCH (10:00)
[2020-07-10 10:57] VITALS: BP 138/84
[2020-07-10] MEDS ORDERED: KETOROLAC TROMETH 30 MG/ML 1ML VIAL IV ONE (11:15)
== END 2020-07-10 13:15 | disposition home or self-care (01) | DRG 563 ==
LOC: CENTRAL 11:11
PROVIDERS: ADMIT Internal Medicine Cardiovascular Disease; ATTEND Internal Medicine Cardiovascular Disease
DX: S83.511A Sprain of anterior cruciate ligament of right knee, initial encounter (principal); M25.061 Hemarthrosis, right knee; D68.59 Other primary thrombophilia; S81.011A Laceration without foreign body, right knee, initial encounter; Z20.822 Contact with and (suspected) exposure to COVID-19; I48.91 Unspecified atrial fibrillation; X58.XXXA Exposure to other specified factors, initial encounter; E78.5 Hyperlipidemia, unspecified; F32.9 Major depressive disorder, single episode, unspecified; K21.9 Gastro-esophageal reflux disease without esophagitis; M19.90 Unspecified osteoarthritis, unspecified site; J44.9 Chronic obstructive pulmonary disease, unspecified; Z82.49 Family history of ischemic heart disease and other diseases of the circulatory system; Z82.5 Family history of asthma and other chronic lower respiratory diseases; Z83.3 Family history of diabetes mellitus; Z86.718 Personal history of other venous thrombosis and embolism; Z90.710 Acquired absence of both cervix and uterus; Z95.2 Presence of prosthetic heart valve; Z88.0 Allergy status to penicillin; Z88.8 Allergy status to other drugs, medicaments and biological substances; Y93.89 Activity, other specified; Y92.89 Other specified places as the place of occurrence of the external cause; Y99.8 Other external cause status; Z90.49 Acquired absence of other specified parts of digestive tract; I10 Essential (primary) hypertension
CPT/HCPCS: 36415; 71045; 80053; 85025; 85610; 85730; 87426; G0378; J1885

== ENCOUNTER 2020-07-20 22:09 | Inpatient (IN) | payer MEDICARE ==
[~2020-07-20] VITALS: Ht 157.5 cm; Wt 74.8 kg
[~2020-07-20 22:09] MED LIST changes: +ALPR0.25 PO; -CELE100C82 PO; -ETH1T PO; -FESO4TAB PO; +FLUO20TA34 PO; +FURO1TAB31 PO; -LISI-646 PO; +LISI2.5T47 PO; -NAPR220C PO; +PANT40TA2 PO; +POTA-220 PO; +QUET50TA PO; +RIVA10TA PO; -ROPI2TAB31 PO; +ROPI4TAB6 PO; -SIMV10TA84 PO; -TRAZ50TA2 PO
[2020-07-21] MEDS ORDERED: SODIUM CHLORIDE 0.9% 2,000 ML IV ONE (01:15)
[2020-07-21 01:45] LABS: Basophils # (auto) 0.1 10 ^3/uL (0-0.2); Basophils % (auto) 0.6 % (0.0-2.0); Eosinophils # (auto) 0 10 ^3/uL (0-0.8); Eosinophils % (auto) 0.2 % (0.0-7.0); Hemoglobin 13.4 g/dL (12.2-16.2); Lymphocytes # (auto) 1.3 10 ^3/uL (0.4-5.4); Lymphocytes % (auto) 7.4 % (10.0-50.0); Mean Corpuscular Hgb Conc. 32.8 g/dL (32.0-36.0); Mean Corpuscular Volume 79.3 fL (80.0-100.0); Monocytes # (auto) 1.4 10 ^3/uL (0-1.3); Neutrophils # (auto) 14.4 10 ^3/uL (1.6-8.6); Neutrophils % (auto) 83.8 % (37.0-80.0); Nucleated Red Blood Cells % 0.1 %; Red Blood Cells 5.17 10^6/uL (4.0-5.20); Red Cell Distribution Width 19.8 % (11.8-14.3); White Blood Cell 17.2 10^3/uL (4.4-10.8)
[2020-07-21 02:02] LABS: Albumin 3.4 g/dL (3.4-5.0); BUN/Creatinine Ratio 20.5; Calcium 8.7 mg/dL (8.5-10.1); Magnesium 2.3 mg/dL (1.6-2.6); Potassium 3.6 mmol/L (3.5-5.1)
[2020-07-21 02:11] LABS: Bilirubin, Total 0.5 mg/dL (0.2-1.0); Total Protein 7.1 g/dL (6.4-8.2)
[2020-07-21] MEDS ORDERED: IOHEXOL 350 MG/ML 100ML IJ ONE (02:12)
[2020-07-21] MEDS ORDERED: ASPirin 325 MG TAB PO ONE (02:30)
[2020-07-21] MEDS ORDERED: ENOXAPARIN SOD 100 MG/1 ML SYRINGE SC ONE (02:30)
[2020-07-21] MEDS ORDERED: MORPHINE SULFATE INJECTION 2 MG/ML SYRG IV ONE (04:00)
[2020-07-21] MEDS ORDERED: ONDANSETRON HCL 4 MG/2 ML VIAL IV ONE (04:00)
[2020-07-21] MEDS ORDERED: ACETAMINOPHEN 500 MG TAB PO ONE (04:00)
[2020-07-21 04:56] LABS: Urine Bacteria FEW /hpf (None Seen); Urine Blood Negative /uL (Negative); Urine Mucus FEW (None Seen); Urine Specific Gravity 1.022 (1.001-1.035); Urine WBC 33 /hpf (0 - 5)
[2020-07-21] MEDS ORDERED: ONDANSETRON HCL 4 MG/2 ML VIAL IV PRN (07:00)
[2020-07-21] MEDS ORDERED: cefTRIAXone 1GM/50ML D5W 50 ML IV ONE (07:30)
[2020-07-21] MEDS: PANTOPRAZOLE 40 MG TAB PO SCH (09:51)
[2020-07-21] MEDS: POTASSIUM CHL 20 Meq TABLET PO SCH (09:51)
[2020-07-21] MEDS: ASPirin 81 mg TAB PO SCH (09:51)
[2020-07-21] MEDS: levoFLOXacin 500MG 100 ML IV SCH (09:51)
[2020-07-21] MEDS: LISINOPRIL 5 MG TAB PO SCH (09:52)
[2020-07-21] MEDS: ENOXAPARIN SOD 80 MG/0.8ML SYRINGE SC SCH ×2 (09:52→21:39)
[2020-07-21 12:24] VITALS: BP 111/72
[2020-07-21] MEDS ORDERED: TRAM50TA2 PO (15:33)
[2020-07-21] MEDS ORDERED: PRED20TA2 PO (15:33)
[2020-07-21] MEDS ORDERED: LISI-716 PO (15:33)
[2020-07-21] MEDS: MORPHINE SULFATE INJECTION 2 MG/ML SYRG IV PRN (16:17)
[2020-07-21] MEDS: ACETAMINOPHEN 325 MG TAB PO PRN (16:17)
[2020-07-21 17:10] VITALS: BP 100/61
[2020-07-21] MEDS: FUROSEMIDE 40 MG TAB PO SCH (18:16)
[2020-07-21 20:00] VITALS: BP 96/51
[2020-07-21] MEDS: ATORVASTATIN 20 MG TAB PO SCH (21:39)
[2020-07-21 22:18] VITALS: BP 96/56
[2020-07-21] MEDS: TEMAZEPAM 15 MG CAP PO PRN (22:50)
[2020-07-22 05:00] VITALS: BP 108/52
[2020-07-22] MEDS: FUROSEMIDE 40 MG TAB PO SCH ×3 (05:25→18:00)
[2020-07-22 06:02] LABS: Basophils # (auto) 0.1 10 ^3/uL (0-0.2); Eosinophils # (auto) 0.1 10 ^3/uL (0-0.8); Hemoglobin 11.4 g/dL (12.2-16.2); Lymphocytes # (auto) 0.8 10 ^3/uL (0.4-5.4); Monocytes # (auto) 0.9 10 ^3/uL (0-1.3); Neutrophils # (auto) 8.2 10 ^3/uL (1.6-8.6); Nucleated Red Blood Cells % 0.1 %
[2020-07-22 06:05] LABS: Basophils % (auto) 0.6 % (0.0-2.0); Eosinophils % (auto) 0.7 % (0.0-7.0); Hematocrit 34.2 % (36.0-46.0); Mean Corpuscular Hemoglobin 26.4 pg (28.0-32.0); Mean Corpuscular Hgb Conc. 33.3 g/dL (32.0-36.0); Mean Corpuscular Volume 79.3 fL (80.0-100.0); Monocytes % (auto) 8.6 % (0.0-12.0); Neutrophils % (auto) 82.1 % (37.0-80.0); Red Blood Cells 4.32 10^6/uL (4.0-5.20); Red Cell Distribution Width 19.6 % (11.8-14.3)
[2020-07-22 06:13] LABS: Albumin 2.7 g/dL (3.4-5.0); Calcium 8.1 mg/dL (8.5-10.1); Potassium 3.4 mmol/L (3.5-5.1)
[2020-07-22 06:17] LABS: BUN/Creatinine Ratio 17.1; Bilirubin, Total 0.4 mg/dL (0.2-1.0); Total Protein 5.8 g/dL (6.4-8.2)
[2020-07-22] MEDS: ACETAMINOPHEN 325 MG TAB PO PRN ×2 (07:56→19:32)
[2020-07-22 08:00] VITALS: BP 96/51
[2020-07-22 08:51] VITALS: BP 99/52
[2020-07-22] MEDS: levoFLOXacin 500MG 100 ML IV SCH (10:35)
[2020-07-22] MEDS: ASPirin 81 mg TAB PO SCH (10:35)
[2020-07-22] MEDS: POTASSIUM CHL 20 Meq TABLET PO SCH (10:35)
[2020-07-22] MEDS: LISINOPRIL 5 MG TAB PO SCH (10:35)
[2020-07-22] MEDS: PANTOPRAZOLE 40 MG TAB PO SCH (10:35)
[2020-07-22] MEDS: ENOXAPARIN SOD 80 MG/0.8ML SYRINGE SC SCH (10:35)
[2020-07-22] MEDS ORDERED: SODIUM CHL 0.9% 50 ML ONE ×2 (14:48→16:04)
[2020-07-22] MEDS ORDERED: ANGIOMAX 250 MG VIAL IV ONE ×2 (14:48→16:04)
[2020-07-22] MEDS ORDERED: LIDOCAINE 2%HCL (LOCAL ANESTH.) INJ 20ML MDV ONE (14:48)
[2020-07-22] MEDS ORDERED: IOHEXOL 350 MG/ML 100ML IJ ONE ×2 (14:49→15:41)
[2020-07-22] MEDS ORDERED: fentaNYL CITRATE 100 MCG/2 ML VL ONE (15:08)
[2020-07-22] MEDS ORDERED: MIDAZOLAM HCL 2MG/2ML 2ml VIAL (1mg/ml) ONE (15:08)
[2020-07-22] MEDS ORDERED: diphenhdrAMINE HCL 50 MG/1 ML VL ONE (15:18)
[2020-07-22] MEDS ORDERED: LORazepam 2MG/ML-1ML VIAL ONE (15:38)
[2020-07-22] MEDS: PRAMIPEXOLE DIHYDROCHLORIDE MO 0.25 MG TAB PO SCH (18:04)
[2020-07-22 20:00] VITALS: BP 93/45
[2020-07-22] MEDS: ATORVASTATIN 20 MG TAB PO SCH (21:00)
[2020-07-22 22:31] VITALS: BP 89/45
[2020-07-23] MEDS: ACETAMINOPHEN 325 MG TAB PO PRN ×2 (02:29→09:08)
[2020-07-23] MEDS: FUROSEMIDE 40 MG TAB PO SCH ×2 (05:17→18:14)
[2020-07-23 05:24] VITALS: BP 115/55
[2020-07-23 08:54] VITALS: BP 110/57
[2020-07-23] MEDS: POTASSIUM CHL 20 Meq TABLET PO SCH (09:59)
[2020-07-23] MEDS: levoFLOXacin 500MG 100 ML IV SCH (09:59)
[2020-07-23] MEDS: PRAMIPEXOLE DIHYDROCHLORIDE MO 0.25 MG TAB PO SCH ×2 (10:00→20:44)
[2020-07-23] MEDS: LISINOPRIL 5 MG TAB PO SCH (10:00)
[2020-07-23] MEDS: PANTOPRAZOLE 40 MG TAB PO SCH (10:00)
[2020-07-23] MEDS: RIVAROXABAN 15 MG TAB PO SCH ×2 (10:00→20:44)
[2020-07-23] MEDS: HYDROcodone-ACET 10/325MG TAB PO PRN (11:57)
[2020-07-23 13:00] VITALS: BP 119/56
[2020-07-23 17:00] VITALS: BP 98/54
[2020-07-23] MEDS: ATORVASTATIN 20 MG TAB PO SCH (20:44)
[2020-07-23] MEDS: TEMAZEPAM 15 MG CAP PO PRN (20:45)
[2020-07-23 22:26] VITALS: BP 119/59
[2020-07-24] MEDS ORDERED: THROAT LOZENGES(CEPASTAT) MT PRN (00:45)
[2020-07-24 05:12] VITALS: BP 126/72
[2020-07-24] MEDS: FUROSEMIDE 40 MG TAB PO SCH (06:44)
[2020-07-24 09:00] VITALS: BP 122/51
[2020-07-24 09:47] VITALS: BP 126/72
[2020-07-24] MEDS: PANTOPRAZOLE 40 MG TAB PO SCH (10:38)
[2020-07-24] MEDS: RIVAROXABAN 15 MG TAB PO SCH ×2 (10:38→21:31)
[2020-07-24] MEDS: PRAMIPEXOLE DIHYDROCHLORIDE MO 0.25 MG TAB PO SCH ×2 (10:38→21:31)
[2020-07-24] MEDS: POTASSIUM CHL 20 Meq TABLET PO SCH (10:38)
[2020-07-24] MEDS: HYDROcodone-ACET 10/325MG TAB PO PRN (10:39)
[2020-07-24] MEDS: levoFLOXacin 500MG 100 ML IV SCH (10:40)
[2020-07-24] MEDS: LISINOPRIL 5 MG TAB PO SCH (10:40)
[2020-07-24 13:00] VITALS: BP 105/55
[2020-07-24 17:00] VITALS: BP 104/50
[2020-07-24] MEDS: ATORVASTATIN 20 MG TAB PO SCH (21:30)
[2020-07-24] MEDS: TEMAZEPAM 15 MG CAP PO PRN (21:44)
[2020-07-24 22:53] VITALS: BP 111/52
[2020-07-25] VITALS (7 sets, daily range): BP systolic 109–142; BP diastolic 46–72
[2020-07-25] MEDS: DOCUSATE SOD 100 MG CAP PO PRN ×2 (01:09→21:34)
[2020-07-25] MEDS: NITROGLYCERIN 0.4 MG SL TAB SL PRN ×3 (04:15→04:32)
[2020-07-25] MEDS: MORPHINE SULFATE INJECTION 2 MG/ML SYRG IV PRN ×3 (04:35→08:16)
[2020-07-25] MEDS: FUROSEMIDE 40 MG TAB PO SCH ×2 (05:48→17:24)
[2020-07-25] MEDS: PRAMIPEXOLE DIHYDROCHLORIDE MO 0.25 MG TAB PO SCH ×2 (09:05→21:34)
[2020-07-25] MEDS: POTASSIUM CHL 20 Meq TABLET PO SCH (09:05)
[2020-07-25] MEDS: PANTOPRAZOLE 40 MG TAB PO SCH (09:05)
[2020-07-25] MEDS: levoFLOXacin 500MG 100 ML IV SCH (09:05)
[2020-07-25] MEDS: LISINOPRIL 5 MG TAB PO SCH (09:06)
[2020-07-25] MEDS: RIVAROXABAN 15 MG TAB PO SCH ×2 (09:06→21:34)
[2020-07-25] MEDS: ATORVASTATIN 20 MG TAB PO SCH (21:34)
[2020-07-25] MEDS: TEMAZEPAM 15 MG CAP PO PRN (21:41)
[2020-07-26] MEDS: ACETAMINOPHEN 325 MG TAB PO PRN ×2 (02:50→11:08)
[2020-07-26 05:00] VITALS: BP 134/66
[2020-07-26] MEDS: FUROSEMIDE 40 MG TAB PO SCH ×2 (05:56→18:09)
[2020-07-26 08:30] VITALS: BP 145/64
[2020-07-26] MEDS: PRAMIPEXOLE DIHYDROCHLORIDE MO 0.25 MG TAB PO SCH (09:02)
[2020-07-26] MEDS: PANTOPRAZOLE 40 MG TAB PO SCH (09:02)
[2020-07-26] MEDS: levoFLOXacin 500MG 100 ML IV SCH (09:02)
[2020-07-26] MEDS: POTASSIUM CHL 20 Meq TABLET PO SCH (09:02)
[2020-07-26] MEDS: LISINOPRIL 5 MG TAB PO SCH (09:03)
[2020-07-26] MEDS: RIVAROXABAN 15 MG TAB PO SCH (09:04)
[2020-07-26] MEDS ORDERED: MAGNESIUM CITRATE SOLUTION 300 ML BTL PO ONE (11:15)
[2020-07-26 11:30] VITALS: BP 138/62
[2020-07-26 17:00] VITALS: BP 122/60
== END 2020-07-26 19:03 | disposition home or self-care (01) | DRG 164 ==
LOC: EDBD 22:09 → ER 22:10 → TELE 07-21 07:00 → TELE-WESTW 07-21 11:17
PROVIDERS: ADMIT Nurse Practitioner; ATTEND Internal Medicine Cardiovascular Disease
PROC: 02CQ3ZZ Extirpation of Matter from Right Pulmonary Artery, Percutaneous Approach (ICD-10-PCS; principal; 2020-07-22)
PROC: 02CR3ZZ Extirpation of Matter from Left Pulmonary Artery, Percutaneous Approach (ICD-10-PCS; 2020-07-22)
PROC: B31T1ZZ Fluoroscopy of Left Pulmonary Artery using Low Osmolar Contrast (ICD-10-PCS; 2020-07-22)
PROC: B31S1ZZ Fluoroscopy of Right Pulmonary Artery using Low Osmolar Contrast (ICD-10-PCS; 2020-07-22)
DX: I26.99 Other pulmonary embolism without acute cor pulmonale (principal); N39.0 Urinary tract infection, site not specified; D68.59 Other primary thrombophilia; I10 Essential (primary) hypertension; D72.829 Elevated white blood cell count, unspecified; E78.5 Hyperlipidemia, unspecified; G25.81 Restless legs syndrome; Z20.822 Contact with and (suspected) exposure to COVID-19; Z79.01 Long term (current) use of anticoagulants; Z82.5 Family history of asthma and other chronic lower respiratory diseases; Z83.3 Family history of diabetes mellitus; Z86.711 Personal history of pulmonary embolism; Z90.710 Acquired absence of both cervix and uterus; Z90.49 Acquired absence of other specified parts of digestive tract; Z80.0 Family history of malignant neoplasm of digestive organs; Z88.0 Allergy status to penicillin; Z91.041 Radiographic dye allergy status
CPT/HCPCS: 36415; 37187; 71045; 71275; 75746; 80053; 81001; 83735; 83880; 84484; 85025; 85379; 85610; 87081; 87086; 87426; 93005; 93306; 96361; 96372; 96374; 96375; 99152; 99153; 99291; G0378; J0696; J1956; J2250; J2405

== ENCOUNTER 2020-07-27 05:45 | Inpatient (IN) | payer MEDICARE ==
[~2020-07-27] VITALS: Ht 160 cm; Wt 74.3 kg
[~2020-07-27 05:45] MED LIST changes: +FLUO1TAB3 PO; -FLUO20TA34 PO; +LISI-716 PO; -LISI2.5T47 PO; +PRED20TA2 PO; +TRAM50TA2 PO
[2020-07-27 06:55] LABS: Eosinophils # (auto) 0.1 10 ^3/uL (0-0.8); Hematocrit 29.4 % (36.0-46.0); Lymphocytes # (auto) 0.6 10 ^3/uL (0.4-5.4); Red Blood Cells 3.79 10^6/uL (4.0-5.20)
[2020-07-27 06:57] LABS: Basophils # (auto) 0.1 10 ^3/uL (0-0.2); Basophils % (auto) 0.5 % (0.0-2.0); Eosinophils % (auto) 0.8 % (0.0-7.0); Hemoglobin 9.8 g/dL (12.2-16.2); INR 1.41 (0.9-1.15); Lymphocytes % (auto) 5.7 % (10.0-50.0); Mean Corpuscular Hgb Conc. 33.5 g/dL (32.0-36.0); Mean Corpuscular Volume 77.6 fL (80.0-100.0); Monocytes # (auto) 0.9 10 ^3/uL (0-1.3); Monocytes % (auto) 8.1 % (0.0-12.0); Neutrophils # (auto) 9.2 10 ^3/uL (1.6-8.6); Neutrophils % (auto) 84.9 % (37.0-80.0); Nucleated Red Blood Cells % 0.1 %; Partial Thromboplastin Time 45.5 sec (23.0-31.2); Platelet Count (auto) 425 10^3/uL (140-450); Red Cell Distribution Width 19.6 % (11.8-14.3); White Blood Cell 10.8 10^3/uL (4.4-10.8)
[2020-07-27 07:01] LABS: Albumin 2.7 g/dL (3.4-5.0); BUN/Creatinine Ratio 13.2; Calcium 8.3 mg/dL (8.5-10.1); Potassium 3.6 mmol/L (3.5-5.1)
[2020-07-27 07:06] LABS: Bilirubin, Total 0.3 mg/dL (0.2-1.0); Total Protein 6.3 g/dL (6.4-8.2)
[2020-07-27 10:43] LABS: Urine Bacteria FEW /hpf (None Seen); Urine Blood Negative /uL (Negative); Urine Mucus FEW (None Seen); Urine Specific Gravity 1.018 (1.001-1.035); Urine WBC 37 /hpf (0 - 5)
[2020-07-27] MEDS ORDERED: NITROGLYCERIN 0.4 MG SL TAB SL PRN (11:30)
[2020-07-27] MEDS ORDERED: MORPHINE SULF INJ 2 MG/ML SYRINGE 1ML IV PRN (11:30)
[2020-07-27 13:00] VITALS: BP 122/63
[2020-07-27] MEDS: KETOROLAC TROMETH 30 MG/ML 1ML VIAL IV PRN ×2 (14:22→21:19)
[2020-07-27 17:00] VITALS: BP 116/49
[2020-07-27] MEDS: RIVAROXABAN 15 MG TAB PO SCH (21:20)
[2020-07-27] MEDS: SUCRALFATE 1 GM/10 ML ORAL SUSP GT SCH (21:20)
[2020-07-27 22:00] VITALS: BP 120/52
[2020-07-28 04:58] VITALS: BP 131/56
[2020-07-28] MEDS: KETOROLAC TROMETH 30 MG/ML 1ML VIAL IV PRN ×3 (06:47→23:17)
[2020-07-28 09:00] VITALS: BP 137/79
[2020-07-28] MEDS: SUCRALFATE 1 GM/10 ML ORAL SUSP GT SCH ×2 (09:53→21:11)
[2020-07-28] MEDS: RIVAROXABAN 15 MG TAB PO SCH ×2 (09:53→21:11)
[2020-07-28 12:52] VITALS: BP 120/55
[2020-07-28 17:00] VITALS: BP 122/53
[2020-07-28 22:00] VITALS: BP 124/56
[2020-07-28] MEDS ORDERED: TEMAZEPAM 15 MG CAP PO PRN (23:30)
[2020-07-29 05:00] VITALS: BP 134/76
[2020-07-29 09:05] VITALS: BP 115/54
[2020-07-29] MEDS: RIVAROXABAN 15 MG TAB PO SCH (10:01)
[2020-07-29] MEDS: SUCRALFATE 1 GM/10 ML ORAL SUSP GT SCH (10:01)
[2020-07-29] MEDS ORDERED: ALPRAZolam 0.25 MG TAB PO PRN (11:30)
[2020-07-29 12:30] VITALS: BP 154/71
[2020-07-29 15:22] VITALS: BP 154/71
== END 2020-07-29 17:05 | disposition home or self-care (01) | DRG 176 ==
LOC: EDBD 05:45 → ER 05:45 → TELE 11:18 → TELE-CENTR 13:40
PROVIDERS: ADMIT Internal Medicine Cardiovascular Disease; ATTEND Internal Medicine Cardiovascular Disease
DX: I26.99 Other pulmonary embolism without acute cor pulmonale (principal); D68.59 Other primary thrombophilia; E44.1 Mild protein-calorie malnutrition; R07.81 Pleurodynia; I27.82 Chronic pulmonary embolism; D64.9 Anemia, unspecified; E78.5 Hyperlipidemia, unspecified; F32.9 Major depressive disorder, single episode, unspecified; F41.9 Anxiety disorder, unspecified; Z20.822 Contact with and (suspected) exposure to COVID-19; K21.9 Gastro-esophageal reflux disease without esophagitis; F17.210 Nicotine dependence, cigarettes, uncomplicated; I10 Essential (primary) hypertension; Z82.5 Family history of asthma and other chronic lower respiratory diseases; Z83.3 Family history of diabetes mellitus; Z90.710 Acquired absence of both cervix and uterus; Z88.0 Allergy status to penicillin; Z91.041 Radiographic dye allergy status; Z90.49 Acquired absence of other specified parts of digestive tract; Z68.24 Body mass index [BMI] 24.0-24.9, adult
CPT/HCPCS: 36415; 71045; 74176; 78582; 80053; 81001; 83880; 84484; 85025; 85610; 85730; 87081; 87426; 93005; G0378; J1885

== ENCOUNTER → 2020-08-10 | Outpatient (CLI) | payer MEDICARE ==
[~2020-08-10] MED LIST changes: +BACITRACIN TOP OINT 1 UD PKG TOP ONE; +CYANOCOBALAMIN (B-12) 1000 MCG/1 ML VIAL IM ONE; +CYANOCOBALAMIN (B-12) 1000 MCG/1 ML VIAL ONE
[2020-08-10 11:18] VITALS: BP 110/54
[2020-08-10 12:05] VITALS: BP 116/42
[2020-08-10 15:38] LABS: Basophils # (auto) 0.1 10 ^3/uL (0-0.2); Hemoglobin 10.8 g/dL (12.2-16.2); Lymphocytes # (auto) 0.9 10 ^3/uL (0.4-5.4); Lymphocytes % (auto) 8.2 % (10.0-50.0); Red Cell Distribution Width 19.5 % (11.8-14.3)
[2020-08-10 15:41] LABS: Urine Blood Negative /uL (Negative); Urine Specific Gravity 1.012 (1.001-1.035)
[2020-08-10 15:43] LABS: Basophils % (auto) 1.2 % (0.0-2.0); Eosinophils # (auto) 0.8 10 ^3/uL (0-0.8); Eosinophils % (auto) 7.2 % (0.0-7.0); Hematocrit 32.5 % (36.0-46.0); Mean Corpuscular Hemoglobin 26.4 pg (28.0-32.0); Mean Corpuscular Hgb Conc. 33.3 g/dL (32.0-36.0); Mean Corpuscular Volume 79.5 fL (80.0-100.0); Monocytes # (auto) 0.9 10 ^3/uL (0-1.3); Monocytes % (auto) 8.2 % (0.0-12.0); Neutrophils % (auto) 75.2 % (37.0-80.0); Nucleated Red Blood Cells % 0.1 %; Platelet Count (auto) 620 10^3/uL (140-450); Red Blood Cells 4.09 10^6/uL (4.0-5.20); White Blood Cell 10.6 10^3/uL (4.4-10.8)
[2020-08-10 15:46] LABS: Albumin 3.1 g/dL (3.4-5.0); Calcium 8.7 mg/dL (8.5-10.1); Magnesium 2.5 mg/dL (1.6-2.6); Potassium 3.6 mmol/L (3.5-5.1)
[2020-08-10 15:52] LABS: BUN/Creatinine Ratio 11.1; Bilirubin, Total 0.3 mg/dL (0.2-1.0); Total Protein 6.8 g/dL (6.4-8.2)
== END | disposition home or self-care (01) ==
LOC: CHF HDHVI 11:17
PROVIDERS: ATTEND Internal Medicine Cardiovascular Disease
DX: D64.9 Anemia, unspecified (principal); R53.83 Other fatigue; I10 Essential (primary) hypertension; E83.40 Disorders of magnesium metabolism, unspecified; N39.0 Urinary tract infection, site not specified; E78.5 Hyperlipidemia, unspecified; J44.9 Chronic obstructive pulmonary disease, unspecified; K21.9 Gastro-esophageal reflux disease without esophagitis; F41.9 Anxiety disorder, unspecified; F32.9 Major depressive disorder, single episode, unspecified; Z87.891 Personal history of nicotine dependence; Z90.49 Acquired absence of other specified parts of digestive tract; Z90.710 Acquired absence of both cervix and uterus; Z79.01 Long term (current) use of anticoagulants
CPT/HCPCS: 36415; 80053; 81003; 83735; 85025; 87086; 87205; 96372; G0463; J3420

== ENCOUNTER → 2020-08-13 | Outpatient (CLI) | payer MEDICARE ==
[~2020-08-13] MED LIST changes: +IOHEXOL 350 MG/ML 100ML IJ ONE; +diphenhdrAMINE HCL 50 MG/1 ML VL ONE; +methylPREDNISolone SOD SUCC 125 MG/2 ML VL ONE
[2020-08-13 10:51] VITALS: BP 138/66
[2020-08-13 12:57] VITALS: BP 110/64
== END | disposition home or self-care (01) ==
LOC: CHF HDHVI 10:52
PROVIDERS: ATTEND Internal Medicine Cardiovascular Disease
DX: R06.02 Shortness of breath (principal); I26.99 Other pulmonary embolism without acute cor pulmonale; F41.9 Anxiety disorder, unspecified; J44.9 Chronic obstructive pulmonary disease, unspecified; I10 Essential (primary) hypertension; K21.9 Gastro-esophageal reflux disease without esophagitis; E78.5 Hyperlipidemia, unspecified; F32.9 Major depressive disorder, single episode, unspecified; R53.83 Other fatigue; M19.90 Unspecified osteoarthritis, unspecified site; I48.91 Unspecified atrial fibrillation; Z79.01 Long term (current) use of anticoagulants; Z87.891 Personal history of nicotine dependence; Z90.710 Acquired absence of both cervix and uterus
CPT/HCPCS: 71046; 96372; G0463; J3420; Q9967

== ENCOUNTER → 2020-09-03 | Outpatient (CLI) | payer MEDICARE ==
[~2020-09-03] MED LIST changes: -BACITRACIN TOP OINT 1 UD PKG TOP ONE; -CYANOCOBALAMIN (B-12) 1000 MCG/1 ML VIAL IM ONE; -CYANOCOBALAMIN (B-12) 1000 MCG/1 ML VIAL ONE; -IOHEXOL 350 MG/ML 100ML IJ ONE; -diphenhdrAMINE HCL 50 MG/1 ML VL ONE; -methylPREDNISolone SOD SUCC 125 MG/2 ML VL ONE
== END | disposition home or self-care (01) ==
LOC: Rad HDHVI 09:34
PROVIDERS: ATTEND Internal Medicine
DX: M16.0 Bilateral primary osteoarthritis of hip (principal); M19.071 Primary osteoarthritis, right ankle and foot; M25.551 Pain in right hip; M25.552 Pain in left hip; M79.671 Pain in right foot
CPT/HCPCS: 73630

== ENCOUNTER 2020-09-09 22:07 | Emergency (ER) | payer MEDICARE ==
[~2020-09-09] VITALS: Ht 157.5 cm; Wt 67.6 kg
[2020-09-09] MEDS ORDERED: IOHEXOL 350 MG/ML 100ML IJ ONE (22:24)
[2020-09-09 22:53] LABS: Basophils # (auto) 0.1 10 ^3/uL (0-0.2); Basophils % (auto) 0.7 % (0.0-2.0); Eosinophils # (auto) 0.1 10 ^3/uL (0-0.8); Eosinophils % (auto) 1.7 % (0.0-7.0); Hematocrit 32.9 % (36.0-46.0); Hemoglobin 10.9 g/dL (12.2-16.2); Lymphocytes # (auto) 1.1 10 ^3/uL (0.4-5.4); Lymphocytes % (auto) 12.2 % (10.0-50.0); Mean Corpuscular Hemoglobin 25.8 pg (28.0-32.0); Mean Corpuscular Hgb Conc. 33.1 g/dL (32.0-36.0); Mean Corpuscular Volume 77.9 fL (80.0-100.0); Monocytes # (auto) 0.7 10 ^3/uL (0-1.3); Monocytes % (auto) 8.3 % (0.0-12.0); Neutrophils # (auto) 6.8 10 ^3/uL (1.6-8.6); Neutrophils % (auto) 77.1 % (37.0-80.0); Platelet Count (auto) 380 10^3/uL (140-450); Red Blood Cells 4.22 10^6/uL (4.0-5.20); Red Cell Distribution Width 20.5 % (11.8-14.3); White Blood Cell 8.8 10^3/uL (4.4-10.8)
[2020-09-09 23:09] LABS: Albumin 3.1 g/dL (3.4-5.0); BUN/Creatinine Ratio 20.8; Calcium 8.1 mg/dL (8.5-10.1); Potassium 3.1 mmol/L (3.5-5.1)
[2020-09-09 23:16] LABS: Bilirubin, Total 0.3 mg/dL (0.2-1.0); Total Protein 6.2 g/dL (6.4-8.2)
[2020-09-10 03:32] LABS: INR 1.33 (0.9-1.15); Partial Thromboplastin Time 39.7 sec (23.0-31.2)
[2020-09-10] MEDS ORDERED: POTASSIUM CHL 20 Meq TABLET PO ONE (04:30)
[2020-09-10 06:45] VITALS: BP 140/51
== END 2020-09-10 07:10 | disposition home or self-care (01) ==
LOC: EDBD 22:07 → ER 22:07
DX: S80.12XA Contusion of left lower leg, initial encounter (principal); S80.11XA Contusion of right lower leg, initial encounter; F41.9 Anxiety disorder, unspecified; I10 Essential (primary) hypertension; F17.210 Nicotine dependence, cigarettes, uncomplicated; Z90.49 Acquired absence of other specified parts of digestive tract; Z90.89 Acquired absence of other organs; Z90.710 Acquired absence of both cervix and uterus; Z88.0 Allergy status to penicillin; Z88.8 Allergy status to other drugs, medicaments and biological substances; Z79.899 Other long term (current) drug therapy; X58.XXXA Exposure to other specified factors, initial encounter; Y93.89 Activity, other specified; Y92.89 Other specified places as the place of occurrence of the external cause; Y99.8 Other external cause status
CPT/HCPCS: 36415; 71045; 80053; 85025; 85610; 85730; 86850; 86900; 86901; 93005; 93971

== ENCOUNTER → 2020-09-15 | Outpatient (CLI) | payer MEDICARE | END | disposition home or self-care (01) | LOC: Rad HDHVI 07:59 | PROVIDERS: ATTEND Internal Medicine Cardiovascular Disease | DX: I11.0 Hypertensive heart disease with heart failure (principal); I50.22 Chronic systolic (congestive) heart failure | CPT/HCPCS: 93306 ==

== ENCOUNTER 2020-12-20 11:46 | Inpatient (IN) | payer MEDICARE ==
[~2020-12-20] VITALS: Ht 165.1 cm; Wt 68.5 kg
[~2020-12-20 11:46] MED LIST changes: -FLUO1TAB3 PO; +FLUO20TA34 PO
[2020-12-20] MEDS ORDERED: methylPREDNISolone SOD SUCC 125 MG/2 ML VL IV ONE (12:00)
[2020-12-20] MEDS ORDERED: ALBUTEROL SULF 2.5 MG/0.5ML(0.5%) NEB SOLN HHN ONE (12:00)
[2020-12-20] MEDS ORDERED: IPRATROPIUM BROM 0.5 MG/2.5ML INH SOL HHN ONE (12:00)
[2020-12-20 12:28] LABS: Basophils # (auto) 0.1 10 ^3/uL (0-0.2); Eosinophils # (auto) 0.1 10 ^3/uL (0-0.8); Lymphocytes # (auto) 0.5 10 ^3/uL (0.4-5.4); Monocytes # (auto) 0.6 10 ^3/uL (0-1.3); Monocytes % (auto) 7.7 % (0.0-12.0); Neutrophils # (auto) 6.3 10 ^3/uL (1.6-8.6); Neutrophils % (auto) 83.6 % (37.0-80.0)
[2020-12-20 12:29] LABS: Eosinophils % (auto) 1.1 % (0.0-7.0); Lymphocytes % (auto) 6.6 % (10.0-50.0); Mean Corpuscular Hemoglobin 24.8 pg (28.0-32.0); Mean Corpuscular Hgb Conc. 32.4 g/dL (32.0-36.0); Mean Corpuscular Volume 76.6 fL (80.0-100.0); Red Blood Cells 4.83 10^6/uL (4.0-5.20); Red Cell Distribution Width 20.5 % (11.8-14.3); White Blood Cell 7.5 10^3/uL (4.4-10.8)
[2020-12-20 12:47] LABS: Chloride 100 mmol/L (98-107); Potassium 3.5 mmol/L (3.5-5.1); Sodium 134 mmol/L (136-145)
[2020-12-20 12:48] LABS: Urine Bacteria FEW /hpf (None Seen); Urine Blood Negative /uL (Negative); Urine Hyaline Cast FEW /lpf (0 - 2); Urine Specific Gravity 1.009 (1.001-1.035); Urine WBC 2 /hpf (0 - 5)
[2020-12-20 13:09] LABS: Alanine Aminotransferase 24 U/L (13-56); Albumin 3.2 g/dL (3.4-5.0); Alkaline Phosphatase 70 U/L (45-117); Anion Gap 7 (5-15); Aspartate Aminotransferase 19 U/L (15-37); Bilirubin, Total 0.3 mg/dL (0.2-1.0); Blood Urea Nitrogen 12 mg/dL (7-18); Calcium 8.7 mg/dL (8.5-10.1); Carbon Dioxide 27 mmol/L (21-32); GFR African American 118 mL/min; GFR Non-African American 98 mL/min; Glucose 100 mg/dL (74-106); Total Protein 6.8 g/dL (6.4-8.2)
[2020-12-20] MEDS ORDERED: ALPRAZolam 0.25 MG TAB PO PRN (17:15)
[2020-12-20] MEDS ORDERED: FLUoxetine HCL 20 MG CAP PO ONE (17:15)
[2020-12-20] MEDS: IPRATROPIUM BROM 0.5 MG/2.5ML INH SOL NEB SCH (18:00)
[2020-12-20 20:29] VITALS: BP 130/60
[2020-12-20] MEDS: methylPREDNISolone SOD SUCC 40 MG/ML VL IV SCH (22:35)
[2020-12-21] MEDS: IPRATROPIUM BROM 0.5 MG/2.5ML INH SOL NEB SCH ×3 (05:53→19:20)
[2020-12-21] MEDS: RIVAROXABAN 20 MG TAB PO SCH (09:14)
[2020-12-21] MEDS: cefTRIAXone 1GM/50ML D5W 50 ML IV SCH (09:14)
[2020-12-21] MEDS ORDERED: QUEtiapine FUMARATE 25 MG TAB PO SCH (10:00)
[2020-12-21] MEDS: methylPREDNISolone SOD SUCC 40 MG/ML VL IV SCH ×2 (10:11→21:20)
[2020-12-21] MEDS: LISINOPRIL 10 MG TAB PO SCH (10:11)
[2020-12-21] MEDS: AZITHROMYCIN 500MG/ 250ML 250 ML IV SCH (10:11)
[2020-12-21] MEDS: PANTOPRAZOLE 40 MG TAB PO SCH (10:11)
[2020-12-21] MEDS: POTASSIUM CHL 20 Meq TABLET PO SCH (10:11)
[2020-12-21] MEDS: FUROSEMIDE 20 MG TAB PO SCH (10:11)
[2020-12-21 21:44] VITALS: BP 104/49
[2020-12-22] MEDS ORDERED: HYDROcodone-ACET 10/325MG TAB PO PRN
[2020-12-22] MEDS ORDERED: guaiFENesin-CODEINE Liq 5 ML UD PO SCH
[2020-12-22] MEDS: QUEtiapine FUMARATE 25 MG TAB PO ONE ×2 (01:15→01:22)
[2020-12-22] MEDS ORDERED: QUET25TA37 PO (01:30)
[2020-12-22 04:56] VITALS: BP 123/73
[2020-12-22] MEDS: IPRATROPIUM BROM 0.5 MG/2.5ML INH SOL NEB SCH ×3 (06:40→19:24)
[2020-12-22 09:00] VITALS: BP 129/63
[2020-12-22] MEDS: POTASSIUM CHL 20 Meq TABLET PO SCH (11:13)
[2020-12-22] MEDS: LISINOPRIL 10 MG TAB PO SCH (11:13)
[2020-12-22] MEDS: RIVAROXABAN 20 MG TAB PO SCH (11:13)
[2020-12-22] MEDS: PANTOPRAZOLE 40 MG TAB PO SCH (11:14)
[2020-12-22] MEDS: methylPREDNISolone SOD SUCC 40 MG/ML VL IV SCH ×2 (11:14→21:58)
[2020-12-22] MEDS: FUROSEMIDE 20 MG TAB PO SCH (11:19)
[2020-12-22] MEDS: AZITHROMYCIN 500MG/ 250ML 250 ML IV SCH (11:19)
[2020-12-22 13:00] VITALS: BP 119/62
[2020-12-22] MEDS: cefTRIAXone 1GM/50ML D5W 50 ML IV SCH (14:31)
[2020-12-22 17:00] VITALS: BP 136/67
[2020-12-22] MEDS: QUEtiapine FUMARATE 25 MG TAB PO SCH (21:58)
[2020-12-22 22:00] VITALS: BP 121/58
[2020-12-22] MEDS: ROPINIROLE 4 MG PO SCH (22:00)
[2020-12-23] VITALS (7 sets, daily range): BP systolic 122–140; BP diastolic 24–74
[2020-12-23] MEDS: IPRATROPIUM BROM 0.5 MG/2.5ML INH SOL NEB SCH ×4 (01:21→22:26)
[2020-12-23] MEDS: RIVAROXABAN 20 MG TAB PO SCH (08:38)
[2020-12-23] MEDS: guaiFENesin-CODEINE Liq 5 ML UD PO PRN ×2 (08:38→17:34)
[2020-12-23] MEDS: cefTRIAXone 1GM/50ML D5W 50 ML IV SCH (08:39)
[2020-12-23] MEDS: POTASSIUM CHL 20 Meq TABLET PO SCH (09:18)
[2020-12-23] MEDS: AZITHROMYCIN 500MG/ 250ML 250 ML IV SCH (09:18)
[2020-12-23] MEDS: methylPREDNISolone SOD SUCC 40 MG/ML VL IV SCH ×2 (09:18→21:38)
[2020-12-23] MEDS: PANTOPRAZOLE 40 MG TAB PO SCH (09:19)
[2020-12-23] MEDS: LISINOPRIL 10 MG TAB PO SCH (09:19)
[2020-12-23] MEDS: FUROSEMIDE 20 MG TAB PO SCH (10:44)
[2020-12-23 11:15] LABS: Mean Corpuscular Volume 76.5 fL (80.0-100.0); White Blood Cell 9.9 10^3/uL (4.4-10.8)
[2020-12-23 11:16] LABS: Hematocrit 35.3 % (36.0-46.0); Hemoglobin 11.3 g/dL (12.2-16.2); Mean Corpuscular Hemoglobin 24.6 pg (28.0-32.0); Mean Corpuscular Hgb Conc. 32.1 g/dL (32.0-36.0); Red Blood Cells 4.62 10^6/uL (4.0-5.20)
[2020-12-23 11:30] LABS: Potassium 3.6 mmol/L (3.5-5.1)
[2020-12-23 11:39] LABS: Albumin 2.7 g/dL (3.4-5.0); BUN/Creatinine Ratio 37.1; Bilirubin, Total 0.1 mg/dL (0.2-1.0); Calcium 8.1 mg/dL (8.5-10.1); Total Protein 5.7 g/dL (6.4-8.2)
[2020-12-23 11:57] LABS: Basophils % (manual) 0 (0.0-2.0); Blast Cells 0; Eosinophils % (manual) 0 (0-7); Metamyelocytes % 0; Promyelocytes % 0; Reactive Lymphocytes 0
[2020-12-23 13:11] LABS: Band Neutrophils % (manual) 1; Lymphocytes % (manual) 7 (10.0-50.0); Monocytes % (manual) 11 (0-12); Myelocytes % 1
[2020-12-23] MEDS: QUEtiapine FUMARATE 25 MG TAB PO SCH (21:38)
[2020-12-23] MEDS: ROPINIROLE 4 MG PO SCH (21:39)
[2020-12-24 05:30] VITALS: BP 149/80
[2020-12-24] MEDS: IPRATROPIUM BROM 0.5 MG/2.5ML INH SOL NEB SCH ×3 (06:13→18:48)
[2020-12-24 07:45] VITALS: BP 139/72
[2020-12-24 08:53] VITALS: BP 139/72
[2020-12-24] MEDS: cefTRIAXone 1GM/50ML D5W 50 ML IV SCH (08:53)
[2020-12-24] MEDS: RIVAROXABAN 20 MG TAB PO SCH (08:53)
[2020-12-24] MEDS: guaiFENesin-CODEINE Liq 5 ML UD PO PRN ×2 (09:06→20:35)
[2020-12-24] MEDS: AZITHROMYCIN 500MG/ 250ML 250 ML IV SCH (10:13)
[2020-12-24] MEDS: methylPREDNISolone SOD SUCC 40 MG/ML VL IV SCH ×2 (10:13→22:13)
[2020-12-24] MEDS: POTASSIUM CHL 20 Meq TABLET PO SCH (10:14)
[2020-12-24] MEDS: LISINOPRIL 10 MG TAB PO SCH (10:15)
[2020-12-24] MEDS: PANTOPRAZOLE 40 MG TAB PO SCH (10:16)
[2020-12-24] MEDS: FUROSEMIDE 20 MG TAB PO SCH (10:16)
[2020-12-24] MEDS ORDERED: THROAT LOZENGES(CEPASTAT) MT PRN (11:45)
[2020-12-24 13:30] VITALS: BP 133/64
[2020-12-24 15:30] VITALS: BP 134/62
[2020-12-24] MEDS ORDERED: diphenhdrAMINE HCL 50 MG/1 ML VL IV ONE (15:30)
[2020-12-24] MEDS ORDERED: methylPREDNISolone SOD SUCC 125 MG/2 ML VL IV ONE (15:30)
[2020-12-24] MEDS ORDERED: IOHEXOL 300 MG/ML 100ML BOTTLE IJ ONE (17:12)
[2020-12-24 22:00] VITALS: BP 150/73
[2020-12-24] MEDS: QUEtiapine FUMARATE 25 MG TAB PO SCH (22:11)
[2020-12-24] MEDS: ROPINIROLE 4 MG PO SCH (22:14)
[2020-12-25] MEDS: guaiFENesin-CODEINE Liq 5 ML UD PO PRN ×2 (02:24→08:34)
[2020-12-25 05:00] VITALS: BP 137/75
[2020-12-25] MEDS: IPRATROPIUM BROM 0.5 MG/2.5ML INH SOL NEB SCH ×3 (06:14→18:25)
[2020-12-25] MEDS ORDERED: FLUO1TAB14 PO (08:30)
[2020-12-25] MEDS: RIVAROXABAN 20 MG TAB PO SCH (08:31)
[2020-12-25] MEDS: FUROSEMIDE 20 MG TAB PO SCH (08:32)
[2020-12-25] MEDS: POTASSIUM CHL 20 Meq TABLET PO SCH (08:32)
[2020-12-25] MEDS: PANTOPRAZOLE 40 MG TAB PO SCH (08:33)
[2020-12-25] MEDS: methylPREDNISolone SOD SUCC 40 MG/ML VL IV SCH ×2 (08:33→21:49)
[2020-12-25] MEDS: AZITHROMYCIN 500MG/ 250ML 250 ML IV SCH (08:33)
[2020-12-25] MEDS: cefTRIAXone 1GM/50ML D5W 50 ML IV SCH (08:33)
[2020-12-25] MEDS: LISINOPRIL 10 MG TAB PO SCH (08:33)
[2020-12-25 09:16] VITALS: BP 147/86
[2020-12-25 12:40] VITALS: BP 126/66
[2020-12-25 17:27] VITALS: BP 120/61
[2020-12-25] MEDS: DIPHENOXYLATE W/ATROPINE 2.5 MG TAB PO PRN (17:55)
[2020-12-25] MEDS: ROPINIROLE 4 MG PO SCH (21:49)
[2020-12-25] MEDS: QUEtiapine FUMARATE 25 MG TAB PO SCH (21:49)
[2020-12-25 22:04] VITALS: BP 139/78
[2020-12-26 05:00] VITALS: BP 145/76
[2020-12-26] MEDS: DIPHENOXYLATE W/ATROPINE 2.5 MG TAB PO PRN ×2 (06:32→22:10)
[2020-12-26] MEDS: IPRATROPIUM BROM 0.5 MG/2.5ML INH SOL NEB SCH ×3 (07:05→18:18)
[2020-12-26 09:00] VITALS: BP 95/58
[2020-12-26] MEDS: PANTOPRAZOLE 40 MG TAB PO SCH (10:29)
[2020-12-26] MEDS: RIVAROXABAN 20 MG TAB PO SCH (10:29)
[2020-12-26] MEDS: methylPREDNISolone SOD SUCC 40 MG/ML VL IV SCH ×2 (10:30→22:01)
[2020-12-26] MEDS: POTASSIUM CHL 20 Meq TABLET PO SCH (10:30)
[2020-12-26] MEDS: LISINOPRIL 10 MG TAB PO SCH (10:30)
[2020-12-26] MEDS: FUROSEMIDE 20 MG TAB PO SCH (10:30)
[2020-12-26 13:00] VITALS: BP 131/72
[2020-12-26 17:00] VITALS: BP 141/73
[2020-12-26 22:00] VITALS: BP 130/74
[2020-12-26] MEDS ORDERED: FLUoxetine HCL 20 MG CAP PO SCH (22:00)
[2020-12-26] MEDS: ROPINIROLE 4 MG PO SCH (22:01)
[2020-12-26] MEDS: QUEtiapine FUMARATE 25 MG TAB PO SCH (22:01)
[2020-12-27] VITALS (7 sets, daily range): BP systolic 129–149; BP diastolic 43–82
[2020-12-27] MEDS: guaiFENesin-CODEINE Liq 5 ML UD PO PRN ×2 (00:01→15:00)
[2020-12-27] MEDS: IPRATROPIUM BROM 0.5 MG/2.5ML INH SOL NEB SCH ×4 (07:22→22:10)
[2020-12-27] MEDS: RIVAROXABAN 20 MG TAB PO SCH (09:50)
[2020-12-27] MEDS: LISINOPRIL 10 MG TAB PO SCH (09:52)
[2020-12-27] MEDS: FUROSEMIDE 20 MG TAB PO SCH (09:52)
[2020-12-27] MEDS: PANTOPRAZOLE 40 MG TAB PO SCH (09:52)
[2020-12-27] MEDS: POTASSIUM CHL 20 Meq TABLET PO SCH (09:53)
[2020-12-27] MEDS: methylPREDNISolone SOD SUCC 40 MG/ML VL IV SCH ×2 (09:54→21:56)
[2020-12-27 09:55] LABS: Albumin 2.5 g/dL (3.4-5.0); Calcium 7.8 mg/dL (8.5-10.1); Potassium 3.7 mmol/L (3.5-5.1)
[2020-12-27 10:01] LABS: BUN/Creatinine Ratio 32.1; Bilirubin, Total 0.3 mg/dL (0.2-1.0); Total Protein 5.6 g/dL (6.4-8.2)
[2020-12-27 10:14] LABS: Hematocrit 36.2 % (36.0-46.0); Hemoglobin 11.9 g/dL (12.2-16.2); Mean Corpuscular Hemoglobin 24.9 pg (28.0-32.0); Mean Corpuscular Hgb Conc. 32.8 g/dL (32.0-36.0); Mean Corpuscular Volume 75.9 fL (80.0-100.0); Red Blood Cells 4.77 10^6/uL (4.0-5.20); Red Cell Distribution Width 19.7 % (11.8-14.3); White Blood Cell 16.1 10^3/uL (4.4-10.8)
[2020-12-27 10:19] LABS: Basophils % (manual) 0 (0.0-2.0); Blast Cells 0; Eosinophils % (manual) 0 (0-7); Promyelocytes % 0; Reactive Lymphocytes 0
[2020-12-27 11:44] LABS: Band Neutrophils % (manual) 5; Lymphocytes % (manual) 2 (10.0-50.0); Metamyelocytes % 3; Monocytes % (manual) 3 (0-12); Myelocytes % 2
[2020-12-27 13:01] LABS: Urine Bacteria NONE SEEN /hpf (None Seen); Urine Blood Negative /uL (Negative); Urine WBC 1 /hpf (0 - 5)
[2020-12-27] MEDS ORDERED: ALBUTEROL SULF 2.5 MG/0.5ML(0.5%) NEB SOLN NEB PRN (18:00)
[2020-12-27] MEDS ORDERED: LEVALBUTEROL HCL 1.25 MG/3 ML NEB NEB SCH (18:00)
[2020-12-27] MEDS: ACETYLCYSTEINE 20%(200MG/ML) SOL 4ML NEB SCH (19:27)
[2020-12-27] MEDS: QUEtiapine FUMARATE 25 MG TAB PO SCH (21:52)
[2020-12-27] MEDS: FLUoxetine HCL 20 MG CAP PO SCH (21:52)
[2020-12-27] MEDS: ROPINIROLE 4 MG PO SCH (21:53)
[2020-12-27] MEDS: LEVALBUTEROL HCL 1.25 MG/3 ML NEB NEB SCH (22:10)
[2020-12-28 05:10] VITALS: BP 137/73
[2020-12-28] MEDS: ACETYLCYSTEINE 20%(200MG/ML) SOL 4ML NEB SCH ×3 (06:13→22:10)
[2020-12-28] MEDS: LEVALBUTEROL HCL 1.25 MG/3 ML NEB NEB SCH ×5 (06:14→22:10)
[2020-12-28] MEDS: IPRATROPIUM BROM 0.5 MG/2.5ML INH SOL NEB SCH ×5 (06:14→22:10)
[2020-12-28] MEDS: RIVAROXABAN 20 MG TAB PO SCH (07:58)
[2020-12-28 08:00] VITALS: BP 140/77
[2020-12-28] MEDS: POTASSIUM CHL 20 Meq TABLET PO SCH (11:02)
[2020-12-28] MEDS: FUROSEMIDE 40 MG TAB PO SCH (11:02)
[2020-12-28] MEDS: PANTOPRAZOLE 40 MG TAB PO SCH (11:03)
[2020-12-28] MEDS: LISINOPRIL 10 MG TAB PO SCH (11:04)
[2020-12-28 12:00] VITALS: BP_SYST 140; BP_SYST 154; BP_DIAS 73; BP_DIAS 77
[2020-12-28] MEDS: methylPREDNISolone SOD SUCC 40 MG/ML VL IV SCH ×2 (14:38→21:15)
[2020-12-28 16:30] VITALS: BP 142/71
[2020-12-28] MEDS: FLUoxetine HCL 20 MG CAP PO SCH (21:15)
[2020-12-28] MEDS: ROPINIROLE 4 MG PO SCH (21:15)
[2020-12-28] MEDS: QUEtiapine FUMARATE 25 MG TAB PO SCH (21:15)
[2020-12-28 21:57] VITALS: BP 136/64
[2020-12-29] MEDS: guaiFENesin-CODEINE Liq 5 ML UD PO PRN ×2 (02:51→10:15)
[2020-12-29 05:00] VITALS: BP 138/74
[2020-12-29] MEDS: LEVALBUTEROL HCL 1.25 MG/3 ML NEB NEB SCH ×5 (06:36→22:46)
[2020-12-29] MEDS: IPRATROPIUM BROM 0.5 MG/2.5ML INH SOL NEB SCH ×5 (06:36→22:46)
[2020-12-29] MEDS: ACETYLCYSTEINE 20%(200MG/ML) SOL 4ML NEB SCH ×3 (06:37→19:46)
[2020-12-29] MEDS: RIVAROXABAN 20 MG TAB PO SCH (08:01)
[2020-12-29 09:00] VITALS: BP 151/67
[2020-12-29] MEDS: POTASSIUM CHL 20 Meq TABLET PO SCH (10:10)
[2020-12-29] MEDS: LISINOPRIL 10 MG TAB PO SCH (10:11)
[2020-12-29] MEDS: PANTOPRAZOLE 40 MG TAB PO SCH (10:11)
[2020-12-29] MEDS: FUROSEMIDE 40 MG TAB PO SCH (10:11)
[2020-12-29] MEDS: methylPREDNISolone SOD SUCC 40 MG/ML VL IV SCH ×2 (10:12→21:53)
[2020-12-29 13:00] VITALS: BP 146/63
[2020-12-29 16:34] VITALS: BP 134/66
[2020-12-29] MEDS: QUEtiapine FUMARATE 25 MG TAB PO SCH (21:53)
[2020-12-29] MEDS: FLUoxetine HCL 20 MG CAP PO SCH (21:53)
[2020-12-29] MEDS: ROPINIROLE 4 MG PO SCH (21:53)
[2020-12-29 22:00] VITALS: BP 132/67
[2020-12-29] MEDS: ALPRAZolam 0.25 MG TAB PO PRN (23:05)
[2020-12-30] VITALS (7 sets, daily range): BP systolic 130–177; BP diastolic 65–79
[2020-12-30 00:15] LABS: INR 1.13 (0.9-1.15); Partial Thromboplastin Time 24.3 sec (23.6-33.0)
[2020-12-30] MEDS: ACETYLCYSTEINE 20%(200MG/ML) SOL 4ML NEB SCH ×2 (07:05→14:45)
[2020-12-30] MEDS: IPRATROPIUM BROM 0.5 MG/2.5ML INH SOL NEB SCH ×5 (07:05→23:08)
[2020-12-30] MEDS: LEVALBUTEROL HCL 1.25 MG/3 ML NEB NEB SCH ×5 (07:05→23:08)
[2020-12-30] MEDS: RIVAROXABAN 20 MG TAB PO SCH (10:05)
[2020-12-30] MEDS: methylPREDNISolone SOD SUCC 40 MG/ML VL IV SCH ×2 (10:05→22:04)
[2020-12-30] MEDS: POTASSIUM CHL 20 Meq TABLET PO SCH (10:05)
[2020-12-30] MEDS: FUROSEMIDE 40 MG TAB PO SCH (10:06)
[2020-12-30] MEDS: PANTOPRAZOLE 40 MG TAB PO SCH (10:07)
[2020-12-30] MEDS: LISINOPRIL 10 MG TAB PO SCH (10:07)
[2020-12-30 15:48] LABS: INR 1.38 (0.9-1.15); Partial Thromboplastin Time 29.6 sec (23.6-33.0)
[2020-12-30] MEDS: QUEtiapine FUMARATE 25 MG TAB PO SCH (22:04)
[2020-12-30] MEDS: FLUoxetine HCL 20 MG CAP PO SCH (22:04)
[2020-12-30] MEDS: ROPINIROLE 4 MG PO SCH (22:04)
[2020-12-30] MEDS: ALPRAZolam 0.25 MG TAB PO PRN (22:08)
[2020-12-31 05:00] VITALS: BP 157/75
[2020-12-31] MEDS: LEVALBUTEROL HCL 1.25 MG/3 ML NEB NEB SCH ×3 (06:13→14:14)
[2020-12-31] MEDS: IPRATROPIUM BROM 0.5 MG/2.5ML INH SOL NEB SCH ×3 (06:13→14:14)
[2020-12-31 08:00] VITALS: BP 132/66
[2020-12-31] MEDS: RIVAROXABAN 20 MG TAB PO SCH ×2 (08:00→15:42)
[2020-12-31 09:00] VITALS: BP 132/66
[2020-12-31] MEDS ORDERED: SODIUM CHLORIDE LOCK 10 ML ONE (09:16)
[2020-12-31] MEDS ORDERED: diphenhdrAMINE HCL 50 MG/1 ML VL ONE (09:17)
[2020-12-31] MEDS ORDERED: BENZOCAINE (DENTAL) 20 % SPRAY 60ML MT ONE (09:27)
[2020-12-31] MEDS ORDERED: SODIUM CHLORIDE LOCK 0 ML ONE (09:28)
[2020-12-31] MEDS ORDERED: EPINEPHrine HCL 1 MG/1 ML AMP ONE (09:28)
[2020-12-31] MEDS ORDERED: LIDOCAINE HCL 2% TOP JELLY 5ML TOP ONE (09:28)
[2020-12-31] MEDS ORDERED: LIDOCAINE 2%HCL (LOCAL ANESTH.) INJ 20ML MDV ONE (09:28)
[2020-12-31] MEDS ORDERED: GLYCOPYRROLATE 0.2 MG/ML 1ML VIAL ONE (09:29)
[2020-12-31] MEDS: MIDAZOLAM HCL 5 MG/ML-1ML VIAL ONE ×5 (10:20→10:31)
[2020-12-31] MEDS: fentaNYL CITRATE 100 MCG/2 ML VL ONE ×4 (10:20→10:37)
[2020-12-31] MEDS ORDERED: EPINEPHrine HCL 0.5 ML NEB NEB ONE (11:00)
[2020-12-31] MEDS ORDERED: FUROSEMIDE 20 MG/2 ML VIAL IV ONE (11:00)
[2020-12-31] MEDS ORDERED: FUROSEMIDE 20 MG/2 ML VIAL ONE (11:02)
[2020-12-31] MEDS: FUROSEMIDE 40 MG TAB PO SCH (11:05)
[2020-12-31] MEDS: methylPREDNISolone SOD SUCC 40 MG/ML VL IV SCH (13:54)
[2020-12-31] MEDS: PANTOPRAZOLE 40 MG TAB PO SCH (13:55)
[2020-12-31] MEDS: POTASSIUM CHL 20 Meq TABLET PO SCH (13:55)
[2020-12-31] MEDS: LISINOPRIL 10 MG TAB PO SCH (13:55)
[2020-12-31 17:00] VITALS: BP 132/66
[2020-12-31 17:49] VITALS: BP 144/82
== END 2020-12-31 18:50 | disposition home or self-care (01) | DRG 193 ==
LOC: ER 11:46 → EDBD 11:46 → TELE 16:58 → TELE-CENTR 12-21 18:48
PROVIDERS: ADMIT Internal Medicine Cardiovascular Disease; ATTEND Internal Medicine Cardiovascular Disease
PROC: 0B9D8ZX Drainage of Right Middle Lung Lobe, Via Natural or Artificial Opening Endoscopic, Diagnostic (ICD-10-PCS; principal; 2020-12-31 10:05)
DX: J18.9 Pneumonia, unspecified organism (principal); J96.01 Acute respiratory failure with hypoxia; J44.1 Chronic obstructive pulmonary disease with (acute) exacerbation; J98.11 Atelectasis; D68.59 Other primary thrombophilia; J45.902 Unspecified asthma with status asthmaticus; J44.0 Chronic obstructive pulmonary disease with (acute) lower respiratory infection; D64.9 Anemia, unspecified; E87.6 Hypokalemia; F32.9 Major depressive disorder, single episode, unspecified; I10 Essential (primary) hypertension; R19.7 Diarrhea, unspecified; E78.5 Hyperlipidemia, unspecified; F17.210 Nicotine dependence, cigarettes, uncomplicated; F41.9 Anxiety disorder, unspecified; Z20.822 Contact with and (suspected) exposure to COVID-19; F32.A Depression, unspecified; Z82.5 Family history of asthma and other chronic lower respiratory diseases; Z82.49 Family history of ischemic heart disease and other diseases of the circulatory system; Z83.3 Family history of diabetes mellitus; Z86.16 Personal history of COVID-19; Z86.711 Personal history of pulmonary embolism; Z86.718 Personal history of other venous thrombosis and embolism; Z87.01 Personal history of pneumonia (recurrent); Z90.710 Acquired absence of both cervix and uterus; Z90.49 Acquired absence of other specified parts of digestive tract; Z88.0 Allergy status to penicillin; Z91.041 Radiographic dye allergy status
CPT/HCPCS: 31624; 36415; 36600; 71045; 71260; 80053; 81001; 82805; 83605; 83880; 84484; 85007; 85025; 85027; 85379; 85610; 85730; 86850; 86900; 86901; 87040; 87070; 87077; 87186; 87205; 87426; 87493; 93005; 94640; 94644; 94668; 96374; 96375; 99291; G0378; J0171; J0696; J2250

== ENCOUNTER 2021-01-09 11:55 | Emergency (ER) | payer MEDICARE ==
[~2021-01-09] VITALS: Ht 157.5 cm; Wt 63.5 kg
[~2021-01-09 11:55] MED LIST changes: -ALPR0.25 PO; +FLUO1TAB14 PO; +QUET25TA37 PO; -QUET50TA PO; -TRAM50TA2 PO
[2021-01-09 12:05] VITALS: BP 111/36
== END 2021-01-09 14:53 | disposition home or self-care (01) ==
LOC: ER 11:55
DX: S80.02XA Contusion of left knee, initial encounter (principal); S80.01XA Contusion of right knee, initial encounter; S00.31XA Abrasion of nose, initial encounter; S00.212A Abrasion of left eyelid and periocular area, initial encounter; S09.8XXA Other specified injuries of head, initial encounter; E78.5 Hyperlipidemia, unspecified; I10 Essential (primary) hypertension; F41.9 Anxiety disorder, unspecified; J45.909 Unspecified asthma, uncomplicated; F32.9 Major depressive disorder, single episode, unspecified; F17.210 Nicotine dependence, cigarettes, uncomplicated; Z86.711 Personal history of pulmonary embolism; Z88.0 Allergy status to penicillin; Z88.6 Allergy status to analgesic agent; Z79.899 Other long term (current) drug therapy; Z90.89 Acquired absence of other organs; Z90.710 Acquired absence of both cervix and uterus; W18.09XA Striking against other object with subsequent fall, initial encounter; Y93.89 Activity, other specified; Y92.89 Other specified places as the place of occurrence of the external cause; Y99.8 Other external cause status
CPT/HCPCS: 70450; 70486; 73560; 93005

== ENCOUNTER 2021-01-12 11:21 | Emergency (ER) | payer MEDICARE ==
[~2021-01-12] VITALS: Ht 157.5 cm; Wt 61.7 kg
[2021-01-12 13:19] VITALS: BP 124/82
== END 2021-01-12 13:55 | disposition home or self-care (01) ==
LOC: ER 11:21
DX: R51.9 Headache, unspecified (principal); R42 Dizziness and giddiness; J45.909 Unspecified asthma, uncomplicated; E78.5 Hyperlipidemia, unspecified; I10 Essential (primary) hypertension; F17.210 Nicotine dependence, cigarettes, uncomplicated; Z90.710 Acquired absence of both cervix and uterus; Z90.89 Acquired absence of other organs; W01.0XXA Fall on same level from slipping, tripping and stumbling without subsequent striking against object, initial encounter; Y93.89 Activity, other specified; Y92.89 Other specified places as the place of occurrence of the external cause; Y99.8 Other external cause status
CPT/HCPCS: 70450; 93005

== ENCOUNTER → 2021-02-24 | Outpatient (CLI) | payer MEDICARE ==
[2021-02-24 15:16] LABS: Urine Blood Negative /uL (Negative); Urine Specific Gravity 1.011 (1.001-1.035)
== END | disposition home or self-care (01) ==
LOC: LAB 11:52
PROVIDERS: ATTEND Internal Medicine Cardiovascular Disease
DX: N39.0 Urinary tract infection, site not specified (principal)
CPT/HCPCS: 81003; 87086

== ENCOUNTER 2021-09-24 02:05 | Inpatient (IN) | payer MEDICARE ==
[~2021-09-24] VITALS: Ht 167.6 cm; Wt 64.1 kg
[2021-09-24 04:24] LABS: Basophils # (auto) 0 10 ^3/uL (0-0.2); Basophils % (auto) 0.7 % (0.0-2.0); Eosinophils # (auto) 0.1 10 ^3/uL (0-0.8); Eosinophils % (auto) 1.4 % (0.0-7.0); Hematocrit 38.7 % (36.0-46.0); Hemoglobin 12.2 g/dL (12.2-16.2); Lymphocytes # (auto) 0.9 10 ^3/uL (0.4-5.4); Lymphocytes % (auto) 14.6 % (10.0-50.0); Mean Corpuscular Hgb Conc. 31.4 g/dL (32.0-36.0); Mean Corpuscular Volume 76.2 fL (80.0-100.0); Monocytes # (auto) 0.6 10 ^3/uL (0-1.3); Monocytes % (auto) 8.6 % (0.0-12.0); Neutrophils # (auto) 4.8 10 ^3/uL (1.6-8.6); Neutrophils % (auto) 74.7 % (37.0-80.0); Nucleated Red Blood Cells % 0.1 %; Red Blood Cells 5.08 10^6/uL (4.0-5.20); Red Cell Distribution Width 19.9 % (11.8-14.3); White Blood Cell 6.5 10^3/uL (4.4-10.8)
[2021-09-24 04:38] LABS: INR 0.95 (0.9-1.15); Partial Thromboplastin Time 25.4 sec (23.6-33.0)
[2021-09-24 04:43] LABS: Albumin 3.3 g/dL (3.4-5.0); Calcium 8.2 mg/dL (8.5-10.1); Magnesium 2.5 mg/dL (1.6-2.6); Potassium 4.1 mmol/L (3.5-5.1)
[2021-09-24 04:51] LABS: BUN/Creatinine Ratio 27.8; Bilirubin, Total 0.2 mg/dL (0.2-1.0); Total Protein 6.1 g/dL (6.4-8.2)
[2021-09-24] MEDS ORDERED: NITROGLYCERIN 0.4 MG SL TAB SL PRN (06:30)
[2021-09-24] MEDS ORDERED: MORPHINE SULFATE INJ 2 MG/ml SYRG IV PRN (06:30)
[2021-09-24] MEDS ORDERED: ACETAMINOPHEN 325 MG TAB PO PRN (06:30)
[2021-09-24] MEDS: DOCUSATE SOD 100 MG CAP PO SCH (10:00)
[2021-09-24] MEDS: LISINOPRIL 5 MG TAB PO SCH (10:17)
[2021-09-24] MEDS: CARVEDILOL 3.125 MG TAB PO SCH ×2 (10:18→22:10)
[2021-09-24] MEDS: RIVAROXABAN 20 MG TAB PO SCH (18:00)
[2021-09-24] MEDS ORDERED: GABA300C10 PO (20:01)
[2021-09-24] MEDS ORDERED: TORS20TA19 PO ×2 (20:01→20:56)
[2021-09-24 22:00] VITALS: BP 134/58
[2021-09-24] MEDS: ATORVASTATIN 20 MG TAB PO SCH (22:08)
[2021-09-25 05:00] VITALS: BP 130/57
[2021-09-25 07:08] LABS: Basophils # (auto) 0.1 10 ^3/uL (0-0.2); Hemoglobin 13.1 g/dL (12.2-16.2); Lymphocytes # (auto) 1.4 10 ^3/uL (0.4-5.4); Monocytes # (auto) 0.7 10 ^3/uL (0-1.3); Nucleated Red Blood Cells % 0.1 %
[2021-09-25 07:13] LABS: Basophils % (auto) 1.2 % (0.0-2.0); Eosinophils # (auto) 0.1 10 ^3/uL (0-0.8); Eosinophils % (auto) 1.8 % (0.0-7.0); Lymphocytes % (auto) 19.7 % (10.0-50.0); Mean Corpuscular Hemoglobin 24.9 pg (28.0-32.0); Mean Corpuscular Hgb Conc. 32.7 g/dL (32.0-36.0); Mean Corpuscular Volume 76.1 fL (80.0-100.0); Monocytes % (auto) 9.6 % (0.0-12.0); Neutrophils # (auto) 4.8 10 ^3/uL (1.6-8.6); Neutrophils % (auto) 67.7 % (37.0-80.0); Potassium 4.5 mmol/L (3.5-5.1); Red Blood Cells 5.26 10^6/uL (4.0-5.20); Red Cell Distribution Width 19.9 % (11.8-14.3); White Blood Cell 7.1 10^3/uL (4.4-10.8)
[2021-09-25 07:23] LABS: Albumin 3.4 g/dL (3.4-5.0); BUN/Creatinine Ratio 27.9; Bilirubin, Total 0.4 mg/dL (0.2-1.0); Calcium 8.4 mg/dL (8.5-10.1); Magnesium 2.5 mg/dL (1.6-2.6); Total Protein 6.7 g/dL (6.4-8.2)
[2021-09-25 09:00] VITALS: BP 122/58
[2021-09-25] MEDS: LISINOPRIL 5 MG TAB PO SCH (09:28)
[2021-09-25] MEDS: CARVEDILOL 3.125 MG TAB PO SCH ×2 (10:00→22:00)
[2021-09-25] MEDS: ASPirin 81 mg TAB PO SCH (10:00)
[2021-09-25] MEDS: DOCUSATE SOD 100 MG CAP PO SCH (10:00)
[2021-09-25 13:00] VITALS: BP 140/74
[2021-09-25 16:51] VITALS: BP 116/56
[2021-09-25] MEDS: RIVAROXABAN 20 MG TAB PO SCH (18:07)
[2021-09-25] MEDS: ATORVASTATIN 20 MG TAB PO SCH (22:18)
[2021-09-26] VITALS: BP 133/62
[2021-09-26 05:29] VITALS: BP 130/55
[2021-09-26 07:17] LABS: Basophils # (auto) 0.1 10 ^3/uL (0-0.2); Eosinophils # (auto) 0.2 10 ^3/uL (0-0.8); Eosinophils % (auto) 2.5 % (0.0-7.0); Hemoglobin 12.7 g/dL (12.2-16.2); Lymphocytes # (auto) 1.4 10 ^3/uL (0.4-5.4)
[2021-09-26 07:19] LABS: Basophils % (auto) 0.9 % (0.0-2.0); Hematocrit 39.8 % (36.0-46.0); Lymphocytes % (auto) 19.6 % (10.0-50.0); Mean Corpuscular Hemoglobin 24.3 pg (28.0-32.0); Mean Corpuscular Hgb Conc. 31.8 g/dL (32.0-36.0); Mean Corpuscular Volume 76.6 fL (80.0-100.0); Monocytes # (auto) 0.8 10 ^3/uL (0-1.3); Monocytes % (auto) 11.5 % (0.0-12.0); Neutrophils # (auto) 4.7 10 ^3/uL (1.6-8.6); Neutrophils % (auto) 65.5 % (37.0-80.0); Red Cell Distribution Width 19.4 % (11.8-14.3); White Blood Cell 7.2 10^3/uL (4.4-10.8)
[2021-09-26 07:37] LABS: Potassium 4.4 mmol/L (3.5-5.1)
[2021-09-26 07:46] LABS: Albumin 3.1 g/dL (3.4-5.0); BUN/Creatinine Ratio 38.5; Bilirubin, Total 0.4 mg/dL (0.2-1.0); Calcium 8.1 mg/dL (8.5-10.1); Total Protein 6.3 g/dL (6.4-8.2)
[2021-09-26 09:00] VITALS: BP 140/45
[2021-09-26] MEDS: LISINOPRIL 5 MG TAB PO SCH (09:18)
[2021-09-26] MEDS: DOCUSATE SOD 100 MG CAP PO SCH (09:19)
[2021-09-26] MEDS: ASPirin 81 mg TAB PO SCH (09:21)
[2021-09-26] MEDS: CARVEDILOL 3.125 MG TAB PO SCH (09:21)
== END 2021-09-26 16:45 | disposition home or self-care (01) | DRG 313 ==
LOC: EDBD 02:05 → ER 02:05 → OVERFLOW 06:29 → CENTRAL 19:39 → TELE-CENTR 09-25 18:57
PROVIDERS: ADMIT Hospitalist; ATTEND Hospitalist
DX: R07.9 Chest pain, unspecified (principal); F17.210 Nicotine dependence, cigarettes, uncomplicated; F32.A Depression, unspecified; F41.9 Anxiety disorder, unspecified; I10 Essential (primary) hypertension; G25.81 Restless legs syndrome; F41.1 Generalized anxiety disorder; Z20.822 Contact with and (suspected) exposure to COVID-19; Z86.711 Personal history of pulmonary embolism; Z90.710 Acquired absence of both cervix and uterus; Z82.5 Family history of asthma and other chronic lower respiratory diseases; Z83.3 Family history of diabetes mellitus; Z88.0 Allergy status to penicillin; Z88.8 Allergy status to other drugs, medicaments and biological substances; Z90.49 Acquired absence of other specified parts of digestive tract
CPT/HCPCS: 36415; 71045; 80053; 80061; 83735; 83880; 84443; 84484; 85025; 85610; 85730; 93005; 93306; G0378

== ENCOUNTER → 2021-11-14 | Outpatient (CLI) | payer MEDICARE ==
[~2021-11-14] MED LIST changes: -FLUO20TA34 PO; -FURO1TAB31 PO; +GABA300C10 PO; -POTA-220 PO; -PRED20TA2 PO
[2021-11-14 17:10] LABS: Urine Blood Negative /uL (Negative)
[2021-11-14 17:22] LABS: Basophils # (auto) 0.1 10 ^3/uL (0-0.2); Eosinophils # (auto) 0.1 10 ^3/uL (0-0.8); Monocytes # (auto) 0.6 10 ^3/uL (0-1.3); Nucleated Red Blood Cells % 0.1 %
[2021-11-14 17:25] LABS: Basophils % (auto) 1.3 % (0.0-2.0); Eosinophils % (auto) 1.8 % (0.0-7.0); Hematocrit 40.8 % (36.0-46.0); Hemoglobin 12.9 g/dL (12.2-16.2); Lymphocytes # (auto) 1.1 10 ^3/uL (0.4-5.4); Lymphocytes % (auto) 18.2 % (10.0-50.0); Mean Corpuscular Hemoglobin 24.9 pg (28.0-32.0); Mean Corpuscular Hgb Conc. 31.7 g/dL (32.0-36.0); Mean Corpuscular Volume 78.4 fL (80.0-100.0); Neutrophils % (auto) 67.7 % (37.0-80.0); Red Blood Cells 5.21 10^6/uL (4.0-5.20); White Blood Cell 5.9 10^3/uL (4.4-10.8)
[2021-11-14 17:50] LABS: Calcium 9.1 mg/dL (8.5-10.1); Potassium 3.9 mmol/L (3.5-5.1)
[2021-11-14 17:56] LABS: Albumin 3.6 g/dL (3.4-5.0); BUN/Creatinine Ratio 14.3; Bilirubin, Direct 0.1 mg/dL (0-0.2); Bilirubin, Total 0.5 mg/dL (0.2-1.0); Total Protein 6.7 g/dL (6.4-8.2)
== END | disposition home or self-care (01) ==
LOC: CHF HDHVI 12:15
PROVIDERS: ATTEND Internal Medicine Cardiovascular Disease
DX: I10 Essential (primary) hypertension (principal); E55.9 Vitamin D deficiency, unspecified; D51.3 Other dietary vitamin B12 deficiency anemia; D64.9 Anemia, unspecified; E11.9 Type 2 diabetes mellitus without complications; R00.2 Palpitations; R53.1 Weakness; R30.0 Dysuria
CPT/HCPCS: 36415; 80048; 80061; 80076; 81003; 82306; 83036; 84443; 85025; 87086

== ENCOUNTER → 2021-12-02 | Outpatient (CLI) | payer MEDICARE ==
[~2021-12-02] VITALS: Ht 154.9 cm; Wt 64.9 kg
[~2021-12-02] MED LIST changes: +ADENOSINE 54 MG in GIVE UN-DILUTED 0 ML IV ONE; +ADENOSINE 90 MG/30 ML INJ IV ONE
== END | disposition home or self-care (01) ==
LOC: Rad HDHVI 08:26
PROVIDERS: ATTEND Internal Medicine Cardiovascular Disease
DX: I10 Essential (primary) hypertension (principal); E78.5 Hyperlipidemia, unspecified; I26.99 Other pulmonary embolism without acute cor pulmonale; Z82.49 Family history of ischemic heart disease and other diseases of the circulatory system
CPT/HCPCS: 78452; 93005; 96374; 96375; A9500; J0153

== ENCOUNTER → 2021-12-19 | Outpatient (CLI) | payer MEDICARE ==
[~2021-12-19] MED LIST changes: -ADENOSINE 54 MG in GIVE UN-DILUTED 0 ML IV ONE; -ADENOSINE 90 MG/30 ML INJ IV ONE
[2021-12-19 17:10] LABS: Urine Blood Negative /uL (Negative); Urine Specific Gravity 1.019 (1.001-1.035)
== END | disposition home or self-care (01) ==
LOC: LAB 12:45
PROVIDERS: ATTEND Internal Medicine Cardiovascular Disease
DX: N39.0 Urinary tract infection, site not specified (principal)
CPT/HCPCS: 81003; 87086

== ENCOUNTER 2022-01-12 15:04 | Inpatient (IN) | payer MEDICARE ==
[~2022-01-12] VITALS: Ht 157.5 cm; Wt 70.0 kg
[2022-01-12 15:38] VITALS: BP 140/91
[2022-01-12] MEDS ORDERED: ENOXAPARIN SOD 100 MG/1 ML SYRINGE SC ONE (17:00)
[2022-01-12 17:38] LABS: Basophils # (auto) 0.1 10 ^3/uL (0-0.2); Basophils % (auto) 0.8 % (0.0-2.0); Eosinophils # (auto) 0.2 10 ^3/uL (0-0.8); Hemoglobin 12.1 g/dL (12.2-16.2); Lymphocytes # (auto) 1.2 10 ^3/uL (0.4-5.4); Red Blood Cells 4.99 10^6/uL (4.0-5.20); White Blood Cell 9.3 10^3/uL (4.4-10.8)
[2022-01-12 17:40] LABS: Eosinophils % (auto) 2.3 % (0.0-7.0); Hematocrit 38.3 % (36.0-46.0); Lymphocytes % (auto) 13.1 % (10.0-50.0); Mean Corpuscular Hemoglobin 24.2 pg (28.0-32.0); Mean Corpuscular Hgb Conc. 31.5 g/dL (32.0-36.0); Mean Corpuscular Volume 76.8 fL (80.0-100.0); Monocytes # (auto) 0.8 10 ^3/uL (0-1.3); Monocytes % (auto) 8.4 % (0.0-12.0); Neutrophils % (auto) 75.4 % (37.0-80.0); Nucleated Red Blood Cells % 0.1 %; Red Cell Distribution Width 18.6 % (11.8-14.3)
[2022-01-12 17:54] LABS: Albumin 3.4 g/dL (3.4-5.0); BUN/Creatinine Ratio 15.4; Calcium 8.5 mg/dL (8.5-10.1); Potassium 3.8 mmol/L (3.5-5.1)
[2022-01-12 17:55] LABS: INR 1.08 (0.9-1.15); Partial Thromboplastin Time 38.7 sec (24.6-33.4)
[2022-01-12 17:57] LABS: Bilirubin, Total 0.2 mg/dL (0.2-1.0); Total Protein 6.7 g/dL (6.4-8.2)
[2022-01-12] MEDS ORDERED: NITROGLYCERIN 0.4 MG SL TAB SL PRN (18:00)
[2022-01-12] MEDS ORDERED: MORPHINE SULFATE INJ 2 MG/ml SYRG IV PRN (18:00)
[2022-01-12] MEDS ORDERED: QUEtiapine FUMARATE 25 MG TAB PO SCH (22:00)
[2022-01-12] MEDS ORDERED: PANTOPRAZOLE 40 MG TAB PO SCH (22:00)
[2022-01-13] MEDS ORDERED: LISINOPRIL 10 MG TAB PO SCH (10:00)
[2022-01-13] MEDS ORDERED: ROPINIROLE HYDROCHLORIDE 4 MG PO SCH (10:00)
[2022-01-13] MEDS ORDERED: GABAPENTIN 300 MG CAP PO SCH (10:00)
[2022-01-13] MEDS ORDERED: FLUoxetine HCL 20 MG CAP PO SCH (10:00)
[2022-01-13] MEDS ORDERED: RIVAROXABAN 10 MG TAB PO SCH (18:00)
== END 2022-01-12 18:15 | disposition left against medical advice (07) | DRG 301 ==
LOC: ER 15:04 → TELE 18:01
PROVIDERS: ADMIT Internal Medicine Cardiovascular Disease; ATTEND Internal Medicine Cardiovascular Disease
DX: I82.811 Embolism and thrombosis of superficial veins of right lower extremity (principal); F17.210 Nicotine dependence, cigarettes, uncomplicated; I10 Essential (primary) hypertension; J45.909 Unspecified asthma, uncomplicated; E78.5 Hyperlipidemia, unspecified; F32.A Depression, unspecified; F41.9 Anxiety disorder, unspecified; Z53.29 Procedure and treatment not carried out because of patient's decision for other reasons; Z83.3 Family history of diabetes mellitus; Z90.710 Acquired absence of both cervix and uterus; Z90.49 Acquired absence of other specified parts of digestive tract; Z86.718 Personal history of other venous thrombosis and embolism; Z88.0 Allergy status to penicillin; Z91.041 Radiographic dye allergy status
CPT/HCPCS: 36415; 80053; 85025; 85610; 85730; 93971; G0378

== ENCOUNTER → 2022-01-23 | Outpatient (CLI) | payer MEDICARE ==
[2022-01-23 11:42] LABS: Basophils # (auto) 0 10 ^3/uL (0-0.2); Eosinophils # (auto) 0.2 10 ^3/uL (0-0.8); Monocytes # (auto) 0.7 10 ^3/uL (0-1.3); White Blood Cell 7.4 10^3/uL (4.4-10.8)
[2022-01-23 11:46] LABS: Basophils % (auto) 0.5 % (0.0-2.0); Eosinophils % (auto) 2.6 % (0.0-7.0); Hematocrit 38.8 % (36.0-46.0); Hemoglobin 12.3 g/dL (12.2-16.2); Lymphocytes # (auto) 1.1 10 ^3/uL (0.4-5.4); Lymphocytes % (auto) 14.2 % (10.0-50.0); Mean Corpuscular Hemoglobin 24.3 pg (28.0-32.0); Mean Corpuscular Hgb Conc. 31.8 g/dL (32.0-36.0); Mean Corpuscular Volume 76.3 fL (80.0-100.0); Monocytes % (auto) 9.2 % (0.0-12.0); Neutrophils # (auto) 5.5 10 ^3/uL (1.6-8.6); Neutrophils % (auto) 73.5 % (37.0-80.0); Red Blood Cells 5.09 10^6/uL (4.0-5.20); Red Cell Distribution Width 18.5 % (11.8-14.3)
[2022-01-23 12:00] LABS: Calcium 8.6 mg/dL (8.5-10.1); Potassium 3.6 mmol/L (3.5-5.1)
[2022-01-23 12:02] LABS: BUN/Creatinine Ratio 11.1
== END | disposition home or self-care (01) ==
LOC: LAB 10:50
PROVIDERS: ATTEND Internal Medicine Cardiovascular Disease
DX: I10 Essential (primary) hypertension (principal)
CPT/HCPCS: 36415; 80048; 85025

== ENCOUNTER → 2022-01-25 | Outpatient (CLI) | payer MEDICARE | END | disposition home or self-care (01) | LOC: Rad HDHVI 08:04 | PROVIDERS: ATTEND Internal Medicine Cardiovascular Disease | DX: I80.01 Phlebitis and thrombophlebitis of superficial vessels of right lower extremity (principal); R60.9 Edema, unspecified | CPT/HCPCS: 93970 ==

== ENCOUNTER → 2022-02-23 | Outpatient (CLI) | payer MEDICARE ==
[~2022-02-23] VITALS: Ht 1 cm; Wt 0.5 kg
[~2022-02-23] MED LIST changes: +BACITRACIN TOP OINT 1 UD PKG TOP ONE
[2022-02-23 10:40] VITALS: BP 150/62
[2022-02-23 11:00] VITALS: BP 148/58
== END | disposition home or self-care (01) ==
LOC: CHF HDHVI 10:37
PROVIDERS: ATTEND Internal Medicine Cardiovascular Disease
DX: S51.801A Unspecified open wound of right forearm, initial encounter (principal); X58.XXXA Exposure to other specified factors, initial encounter; Y93.89 Activity, other specified; Y92.89 Other specified places as the place of occurrence of the external cause; Y99.8 Other external cause status
CPT/HCPCS: G0463

== ENCOUNTER → 2022-03-01 | Outpatient (CLI) | payer MEDICARE ==
[~2022-03-01] MED LIST changes: -BACITRACIN TOP OINT 1 UD PKG TOP ONE
== END | disposition home or self-care (01) ==
LOC: Rad HDHVI 10:37
PROVIDERS: ATTEND Internal Medicine Cardiovascular Disease
DX: M25.731 Osteophyte, right wrist (principal); M25.531 Pain in right wrist; I70.0 Atherosclerosis of aorta; M47.814 Spondylosis without myelopathy or radiculopathy, thoracic region
CPT/HCPCS: 71046; 73110

== ENCOUNTER 2022-03-28 09:49 | Emergency (ER) | payer OTHER, MEDICARE ==
[~2022-03-28] VITALS: Ht 154.9 cm; Wt 70.4 kg
[2022-03-28] MEDS ORDERED: LEVO-28 PO (10:33)
[2022-03-28 11:03] LABS: Basophils # (auto) 0.1 10 ^3/uL (0-0.2); Eosinophils # (auto) 0.1 10 ^3/uL (0-0.8); Mean Corpuscular Hgb Conc. 32.3 g/dL (32.0-36.0); Nucleated Red Blood Cells % 0.2 %
[2022-03-28 11:10] LABS: Basophils % (auto) 1.2 % (0.0-2.0); Eosinophils % (auto) 0.7 % (0.0-7.0); Hemoglobin 13.3 g/dL (12.2-16.2); Lymphocytes # (auto) 1.4 10 ^3/uL (0.4-5.4); Lymphocytes % (auto) 17.2 % (10.0-50.0); Mean Corpuscular Volume 77.2 fL (80.0-100.0); Monocytes # (auto) 0.8 10 ^3/uL (0-1.3); Monocytes % (auto) 9.6 % (0.0-12.0); Neutrophils # (auto) 5.9 10 ^3/uL (1.6-8.6); Neutrophils % (auto) 71.3 % (37.0-80.0); Red Blood Cells 5.32 10^6/uL (4.0-5.20); Red Cell Distribution Width 20.9 % (11.8-14.3); White Blood Cell 8.3 10^3/uL (4.4-10.8)
[2022-03-28 11:15] LABS: Urine Bacteria NONE SEEN /hpf (None Seen); Urine Blood Negative /uL (Negative); Urine Specific Gravity 1.006 (1.001-1.035); Urine WBC 3 /hpf (0 - 5)
[2022-03-28 11:16] LABS: Albumin 3.9 g/dL (3.4-5.0); Calcium 8.9 mg/dL (8.5-10.1); Potassium 3.4 mmol/L (3.5-5.1)
[2022-03-28 11:20] LABS: BUN/Creatinine Ratio 16.7; Bilirubin, Total 0.4 mg/dL (0.2-1.0); Total Protein 6.8 g/dL (6.4-8.2)
[2022-03-28 12:41] VITALS: BP 148/79
== END 2022-03-28 12:44 | disposition home or self-care (01) ==
LOC: ER 09:49
DX: L03.116 Cellulitis of left lower limb (principal); L03.115 Cellulitis of right lower limb; F41.9 Anxiety disorder, unspecified; F32.9 Major depressive disorder, single episode, unspecified; E78.5 Hyperlipidemia, unspecified; F17.210 Nicotine dependence, cigarettes, uncomplicated; J45.909 Unspecified asthma, uncomplicated; I10 Essential (primary) hypertension; Z90.49 Acquired absence of other specified parts of digestive tract; Z90.710 Acquired absence of both cervix and uterus; Z90.89 Acquired absence of other organs; Z48.00 Encounter for change or removal of nonsurgical wound dressing; Z88.0 Allergy status to penicillin; Z88.8 Allergy status to other drugs, medicaments and biological substances; Z79.899 Other long term (current) drug therapy
CPT/HCPCS: 36415; 71045; 80053; 81001; 83880; 84484; 85025; 93970

== ENCOUNTER → 2022-03-31 | Outpatient (CLI) | payer OTHER ==
[~2022-03-31] MED LIST changes: +BACITRACIN TOP OINT 1 UD PKG TOP ONE; +LEVO-28 PO
[2022-03-31 09:14] VITALS: BP 124/54
[2022-03-31 09:51] VITALS: BP 137/50
== END | disposition home or self-care (01) ==
LOC: CHF HDHVI 09:10
PROVIDERS: ATTEND Internal Medicine Cardiovascular Disease
DX: Z48.02 Encounter for removal of sutures (principal)
CPT/HCPCS: G0463

== ENCOUNTER 2022-07-01 08:24 | Emergency (ER) | payer OTHER, MEDICARE ==
[~2022-07-01] VITALS: Ht 154.9 cm; Wt 77.5 kg
[~2022-07-01 08:24] MED LIST changes: -BACITRACIN TOP OINT 1 UD PKG TOP ONE
[2022-07-01] MEDS ORDERED: LIDOCAINE 1% HCL (LOCAL ANESTH.) INJ 20ML MDV IJ ONE (09:30)
[2022-07-01] MEDS ORDERED: GLUCAGON EMERG KIT 1mg/1ml IM ONE (09:30)
[2022-07-01 09:32] VITALS: BP 153/64
[2022-07-01] MEDS ORDERED: LIDOCAINE VISCOUS 2% 15ML UD PO ONE (09:45)
[2022-07-01 10:10] LABS: Basophils # (auto) 0 10 ^3/uL (0-0.2); Basophils % (auto) 0.3 % (0.0-2.0); Eosinophils # (auto) 0.2 10 ^3/uL (0-0.8); Hematocrit 38.2 % (36.0-46.0); Hemoglobin 12.4 g/dL (12.2-16.2); Lymphocytes % (auto) 8.4 % (10.0-50.0); Mean Corpuscular Hemoglobin 25.5 pg (28.0-32.0); Mean Corpuscular Hgb Conc. 32.4 g/dL (32.0-36.0); Mean Corpuscular Volume 78.7 fL (80.0-100.0); Monocytes % (auto) 8.6 % (0.0-12.0); Neutrophils # (auto) 9.7 10 ^3/uL (1.6-8.6); Neutrophils % (auto) 80.7 % (37.0-80.0); Red Blood Cells 4.85 10^6/uL (4.0-5.20); Red Cell Distribution Width 17.1 % (11.8-14.3)
[2022-07-01 10:21] LABS: BUN/Creatinine Ratio 19.6 (10.0-20.0); Calcium 8.6 mg/dL (8.5-10.1); Potassium 4.2 mmol/L (3.5-5.1)
[2022-07-01 10:36] LABS: INR 0.95 (0.9-1.15)
[2022-07-01] MEDS ORDERED: AZIT500T66 PO (11:41)
[2022-07-01] MEDS ORDERED: LIDO2SOL23 MT (11:41)
== END 2022-07-01 11:37 | disposition home or self-care (01) ==
LOC: ER 08:24
DX: J39.2 Other diseases of pharynx (principal); F17.210 Nicotine dependence, cigarettes, uncomplicated; F41.9 Anxiety disorder, unspecified; J45.909 Unspecified asthma, uncomplicated; E78.5 Hyperlipidemia, unspecified; F32.9 Major depressive disorder, single episode, unspecified; I10 Essential (primary) hypertension; Z03.821 Encounter for observation for suspected ingested foreign body ruled out; Z88.0 Allergy status to penicillin; Z88.8 Allergy status to other drugs, medicaments and biological substances; Z79.899 Other long term (current) drug therapy; Z90.49 Acquired absence of other specified parts of digestive tract; Z90.710 Acquired absence of both cervix and uterus; Z90.89 Acquired absence of other organs
CPT/HCPCS: 36415; 70360; 70490; 71250; 80048; 85025; 85610; 96372; 99285; J1610; 96374

== ENCOUNTER 2022-07-07 11:18 | Emergency (ER) | payer MEDICARE, OTHER ==
[~2022-07-07] VITALS: Ht 154.9 cm; Wt 72.7 kg
[~2022-07-07 11:18] MED LIST changes: +AZIT500T66 PO; +LIDO2SOL23 MT
[2022-07-07 12:14] LABS: Hemoglobin 12.4 g/dL (12.2-16.2); Mean Corpuscular Volume 77.9 fL (80.0-100.0)
[2022-07-07 12:16] LABS: Hematocrit 39.3 % (36.0-46.0); Mean Corpuscular Hemoglobin 24.6 pg (28.0-32.0); Mean Corpuscular Hgb Conc. 31.5 g/dL (32.0-36.0); Red Blood Cells 5.04 10^6/uL (4.0-5.20); Red Cell Distribution Width 17.4 % (11.8-14.3); White Blood Cell 13.9 10^3/uL (4.4-10.8)
[2022-07-07 12:20] LABS: Basophils % (manual) 0 (0.0-2.0); Blast Cells 0; Eosinophils % (manual) 0 (0-7); Metamyelocytes % 0; Myelocytes % 0; Promyelocytes % 0; Reactive Lymphocytes 0
[2022-07-07 12:22] LABS: Urine Bacteria NONE SEEN /hpf (None Seen); Urine Blood Negative /uL (Negative); Urine Specific Gravity 1.022 (1.001-1.035); Urine WBC 4 /hpf (0 - 5)
[2022-07-07 12:36] LABS: Albumin 3.1 g/dL (3.4-5.0); Calcium 8.8 mg/dL (8.5-10.1)
[2022-07-07 12:40] LABS: BUN/Creatinine Ratio 21.1 (10.0-20.0); Bilirubin, Total 0.2 mg/dL (0.2-1.0); Total Protein 6.3 g/dL (6.4-8.2)
[2022-07-07] MEDS ORDERED: NITR-87 PO (13:39)
[2022-07-07 13:47] LABS: Band Neutrophils % (manual) 1; Lymphocytes % (manual) 12 (10.0-50.0); Monocytes % (manual) 5 (0-12)
[2022-07-07 14:21] VITALS: BP 138/64
== END 2022-07-07 14:23 | disposition home or self-care (01) ==
LOC: ER 11:18
DX: J40 Bronchitis, not specified as acute or chronic (principal); N39.0 Urinary tract infection, site not specified; F41.9 Anxiety disorder, unspecified; F32.9 Major depressive disorder, single episode, unspecified; E78.5 Hyperlipidemia, unspecified; I10 Essential (primary) hypertension; F17.210 Nicotine dependence, cigarettes, uncomplicated; Z90.49 Acquired absence of other specified parts of digestive tract; Z90.710 Acquired absence of both cervix and uterus; Z98.890 Other specified postprocedural states; Z20.822 Contact with and (suspected) exposure to COVID-19
CPT/HCPCS: 36415; 71045; 80053; 81001; 83880; 84484; 85007; 85027; 85379; 87426; 87804; 93005

== ENCOUNTER 2022-09-10 10:20 | Emergency (ER) | payer MEDICARE, OTHER ==
[~2022-09-10] VITALS: Ht 165.1 cm; Wt 65.0 kg
[~2022-09-10 10:20] MED LIST changes: +GABA-1250 PO; -GABA300C10 PO; -LEVO-28 PO; +LEVO500T91 PO; -LIDO2SOL23 MT; +LIDO2SOL26 MT; -LISI-716 PO; +LISI10TA34 PO; +NITR-87 PO
[2022-09-10 11:04] LABS: Basophils % (auto) 1.1 % (0.0-2.0); Eosinophils # (auto) 0.2 10 ^3/uL (0-0.8); Eosinophils % (auto) 5.4 % (0.0-7.0); Hemoglobin 12.2 g/dL (12.2-16.2); Lymphocytes # (auto) 0.9 10 ^3/uL (0.4-5.4); Mean Corpuscular Hemoglobin 24.5 pg (28.0-32.0); Monocytes # (auto) 0.5 10 ^3/uL (0-1.3); Monocytes % (auto) 10.3 % (0.0-12.0); Neutrophils # (auto) 2.9 10 ^3/uL (1.6-8.6)
[2022-09-10 11:06] LABS: Basophils # (auto) 0 10 ^3/uL (0-0.2); Hematocrit 37.6 % (36.0-46.0); Lymphocytes % (auto) 20.3 % (10.0-50.0); Mean Corpuscular Hgb Conc. 32.4 g/dL (32.0-36.0); Mean Corpuscular Volume 75.5 fL (80.0-100.0); Neutrophils % (auto) 62.9 % (37.0-80.0); Red Blood Cells 4.98 10^6/uL (4.0-5.20); Red Cell Distribution Width 18.5 % (11.8-14.3); White Blood Cell 4.5 10^3/uL (4.4-10.8)
[2022-09-10 11:48] LABS: Albumin 3.3 g/dL (3.4-5.0); Calcium 8.2 mg/dL (8.5-10.1); Potassium 3.7 mmol/L (3.5-5.1)
[2022-09-10 11:51] LABS: BUN/Creatinine Ratio 10.5 (10.0-20.0); Bilirubin, Total 0.2 mg/dL (0.2-1.0); Total Protein 6.5 g/dL (6.4-8.2)
[2022-09-10] MEDS ORDERED: DOXY-286 PO (12:43)
[2022-09-10] MEDS ORDERED: DEX4T PO (12:43)
[2022-09-10] MEDS ORDERED: ALBUAER3 IN (12:44)
[2022-09-10 13:22] VITALS: BP 110/53
== END 2022-09-10 13:25 | disposition home or self-care (01) ==
LOC: EDBD 10:20 → ER 10:20
DX: U07.1 COVID-19 (principal); J12.82 Pneumonia due to coronavirus disease 2019; F41.9 Anxiety disorder, unspecified; J45.909 Unspecified asthma, uncomplicated; J44.9 Chronic obstructive pulmonary disease, unspecified; F32.9 Major depressive disorder, single episode, unspecified; E78.5 Hyperlipidemia, unspecified; F17.210 Nicotine dependence, cigarettes, uncomplicated; I10 Essential (primary) hypertension; Z90.710 Acquired absence of both cervix and uterus; Z90.89 Acquired absence of other organs; Z90.49 Acquired absence of other specified parts of digestive tract; Z88.0 Allergy status to penicillin; Z91.040 Latex allergy status; Z79.899 Other long term (current) drug therapy
CPT/HCPCS: 36415; 71045; 80053; 84484; 85025; 93005

== ENCOUNTER 2022-09-28 12:26 | Emergency (ER) | payer OTHER ==
[~2022-09-28] VITALS: Ht 154.9 cm; Wt 70.5 kg
[~2022-09-28 12:26] MED LIST changes: +ALBUAER3 IN; +DEX4T PO; +DOXY-286 PO
[2022-09-28 13:41] LABS: Urine Bacteria NONE SEEN /hpf (None Seen); Urine Blood Negative /uL (Negative); Urine Specific Gravity 1.018 (1.001-1.035); Urine WBC 8 /hpf (0 - 5)
[2022-09-28 14:22] LABS: Basophils # (auto) 0.1 10 ^3/uL (0-0.2); Eosinophils # (auto) 0.2 10 ^3/uL (0-0.8); Lymphocytes # (auto) 1.2 10 ^3/uL (0.4-5.4); Monocytes # (auto) 0.8 10 ^3/uL (0-1.3); Neutrophils # (auto) 6.5 10 ^3/uL (1.6-8.6); Nucleated Red Blood Cells % 0.1 %
[2022-09-28 14:23] LABS: Basophils % (auto) 1.3 % (0.0-2.0); Hematocrit 38.5 % (36.0-46.0); Hemoglobin 12.1 g/dL (12.2-16.2); Lymphocytes % (auto) 14.2 % (10.0-50.0); Mean Corpuscular Hemoglobin 24.2 pg (28.0-32.0); Mean Corpuscular Hgb Conc. 31.4 g/dL (32.0-36.0); Mean Corpuscular Volume 77.1 fL (80.0-100.0); Monocytes % (auto) 8.6 % (0.0-12.0); Neutrophils % (auto) 73.9 % (37.0-80.0); Red Blood Cells 4.99 10^6/uL (4.0-5.20); White Blood Cell 8.8 10^3/uL (4.4-10.8)
[2022-09-28 14:34] LABS: Red Cell Distribution Width 20.1 % (11.8-14.3)
[2022-09-28] MEDS ORDERED: SODIUM CHLORIDE 0.9% 1,000 ML IV ONE (14:45)
[2022-09-28 14:46] LABS: Albumin 3.3 g/dL (3.4-5.0); Calcium 8.9 mg/dL (8.5-10.1); Potassium 4.2 mmol/L (3.5-5.1)
[2022-09-28 14:50] LABS: Bilirubin, Total 0.3 mg/dL (0.2-1.0); Total Protein 6.3 g/dL (6.4-8.2)
[2022-09-28] MEDS ORDERED: traMADol HCL 50 MG TAB PO ONE (15:30)
[2022-09-28] MEDS ORDERED: PHENAZOPYRIDINE HCL 100 MG TAB PO ONE (15:30)
[2022-09-28] MEDS ORDERED: PHEN95TA10 PO (17:48)
[2022-09-28] MEDS ORDERED: ACET-6 PO (17:48)
[2022-09-28 20:20] VITALS: BP 162/64
[2022-09-28] MEDS ORDERED: levoFLOXacin 500 MG TAB PO ONE (20:30)
[2022-09-29] MEDS ORDERED: LEVO500T91 PO (19:14)
== END 2022-09-28 20:42 | disposition home or self-care (01) ==
LOC: ER 12:26
DX: N39.0 Urinary tract infection, site not specified (principal); J45.909 Unspecified asthma, uncomplicated; I10 Essential (primary) hypertension; E78.5 Hyperlipidemia, unspecified; F17.210 Nicotine dependence, cigarettes, uncomplicated; Z90.49 Acquired absence of other specified parts of digestive tract; Z90.710 Acquired absence of both cervix and uterus; Z90.89 Acquired absence of other organs; Z79.2 Long term (current) use of antibiotics; Z79.899 Other long term (current) drug therapy; Z88.0 Allergy status to penicillin; Z88.8 Allergy status to other drugs, medicaments and biological substances
CPT/HCPCS: 36415; 74176; 80053; 81001; 83690; 84484; 85025; 96360; 96361; 99284; J7030

== ENCOUNTER 2022-10-08 18:10 | Emergency (ER) | payer OTHER ==
[~2022-10-08] VITALS: Ht 154.9 cm; Wt 71.6 kg
[~2022-10-08 18:10] MED LIST changes: +ACET-6 PO; +PHEN95TA10 PO
[2022-10-08 18:20] VITALS: BP 109/65
== END 2022-10-08 21:16 | disposition left against medical advice (07) ==
LOC: ER 18:10
DX: S80.11XA Contusion of right lower leg, initial encounter (principal); Z53.21 Procedure and treatment not carried out due to patient leaving prior to being seen by health care provider; X58.XXXA Exposure to other specified factors, initial encounter; Y93.89 Activity, other specified; Y92.89 Other specified places as the place of occurrence of the external cause; Y99.8 Other external cause status
CPT/HCPCS: 93971

== ENCOUNTER → 2022-11-23 | Outpatient (CLI) | payer OTHER | END | disposition home or self-care (01) | LOC: Rad HDHVI 10:07 | PROVIDERS: ATTEND Internal Medicine Cardiovascular Disease | DX: R06.02 Shortness of breath (principal) | CPT/HCPCS: 71046 ==

== ENCOUNTER → 2023-01-01 | Outpatient (CLI) | payer OTHER ==
[2023-01-01 10:00] VITALS: BP 134/60; PULSE 82; RESP 16; O2SAT 94
[2023-01-01 10:18] VITALS: BP 123/55; PULSE 76; RESP 16; O2SAT 94
== END | disposition home or self-care (01) ==
LOC: CHF HDHVI 09:48
PROVIDERS: ATTEND Internal Medicine Cardiovascular Disease
DX: Z01.818 Encounter for other preprocedural examination (principal); I27.21 Secondary pulmonary arterial hypertension; R06.02 Shortness of breath; I10 Essential (primary) hypertension; R53.83 Other fatigue
CPT/HCPCS: 93005; G0463

== ENCOUNTER 2023-01-04 06:51 | Day surgery (SDC) | payer MEDICARE, OTHER ==
[2023-01-01 11:20] LABS: Basophils # (auto) 0.1 10 ^3/uL (0-0.2); Basophils % (auto) 0.9 % (0.0-2.0); Eosinophils # (auto) 0.2 10 ^3/uL (0-0.8); Monocytes # (auto) 0.7 10 ^3/uL (0-1.3); Monocytes % (auto) 9.8 % (0.0-12.0); Neutrophils % (auto) 71.6 % (37.0-80.0)
[2023-01-01 11:23] LABS: Eosinophils % (auto) 2.7 % (0.0-7.0); Hematocrit 36.6 % (36.0-46.0); Lymphocytes # (auto) 1.1 10 ^3/uL (0.4-5.4); Mean Corpuscular Hemoglobin 24.6 pg (28.0-32.0); Mean Corpuscular Hgb Conc. 32.7 g/dL (32.0-36.0); Mean Corpuscular Volume 75.1 fL (80.0-100.0); Neutrophils # (auto) 5.3 10 ^3/uL (1.6-8.6); Nucleated Red Blood Cells % 0.1 %; Red Blood Cells 4.87 10^6/uL (4.0-5.20); Red Cell Distribution Width 19.5 % (11.8-14.3); White Blood Cell 7.4 10^3/uL (4.4-10.8)
[2023-01-01 11:35] LABS: INR 1.24 (0.9-1.15); Partial Thromboplastin Time 43.8 SEC (24.5-34.5); Prothrombin Time 12.8 sec (9.3-11.8)
[2023-01-01 12:09] LABS: Chloride 106 mmol/L (98-107); Potassium 3.9 mmol/L (3.5-5.1); Sodium 139 mmol/L (136-145)
[2023-01-01 12:10] LABS: Anion Gap 7 (5-15); Calcium 9.2 mg/dL (8.5-10.1); Carbon Dioxide 26 mmol/L (20-30)
[2023-01-01 12:15] LABS: Glucose 111 mg/dL (74-106)
[2023-01-01 12:16] LABS: BUN/Creatinine Ratio 16.7 (10.0-20.0); Blood Urea Nitrogen 11 mg/dL (9-23)
[~2023-01-04] VITALS: Ht 154.9 cm; Wt 70.3 kg
[~2023-01-04 06:51] MED LIST changes: -AZIT500T66 PO; -DEX4T PO; -DOXY-286 PO; -LEVO500T91 PO; -LIDO2SOL26 MT; -NITR-87 PO
[2023-01-04] MEDS ORDERED: IOHEXOL 350 MG/ML 100ML IJ ONE ×2 (07:41→08:08)
[2023-01-04] MEDS ORDERED: LIDOCAINE 2%HCL (LOCAL ANESTH.) INJ 20ML MDV ONE (07:41)
[2023-01-04] MEDS ORDERED: fentaNYL CITRATE 100 MCG/2 ML VL ONE (08:03)
[2023-01-04] MEDS ORDERED: ANGIOMAX 250 MG VIAL IV ONE (08:03)
[2023-01-04] MEDS ORDERED: MIDAZOLAM HCL 2MG/2ML 2ml VIAL (1mg/ml) ONE (08:04)
[2023-01-04] MEDS ORDERED: SODIUM CHL 0.9% 0 ML ONE (08:04)
[2023-01-04] MEDS ORDERED: methylPREDNISolone SOD SUCC 125 MG/2 ML VL ONE (08:21)
[2023-01-04] MEDS ORDERED: diphenhdrAMINE HCL 50 MG/1 ML VL ONE (08:21)
[2023-01-04] MEDS ORDERED: FAMOTIDINE (10MG/ML) 2ML VL IV ONE (08:21)
== END 2023-01-04 11:50 | disposition home or self-care (01) ==
LOC: CATH 06:51
PROVIDERS: ATTEND Internal Medicine Cardiovascular Disease
DX: R94.39 Abnormal result of other cardiovascular function study (principal); J44.9 Chronic obstructive pulmonary disease, unspecified; F41.8 Other specified anxiety disorders; G47.30 Sleep apnea, unspecified; Z82.5 Family history of asthma and other chronic lower respiratory diseases; Z88.0 Allergy status to penicillin; Z87.01 Personal history of pneumonia (recurrent); Z91.041 Radiographic dye allergy status; Z83.3 Family history of diabetes mellitus; Z82.49 Family history of ischemic heart disease and other diseases of the circulatory system; Z79.891 Long term (current) use of opiate analgesic; Z87.891 Personal history of nicotine dependence; Z72.89 Other problems related to lifestyle; Z90.710 Acquired absence of both cervix and uterus; Z98.890 Other specified postprocedural states
CPT/HCPCS: 36415; 80048; 85025; 85610; 85730; 93458; C1757; C1894; J1200; J1644; J2250; J2930; J3490; Q9967; 99152

== ENCOUNTER 2023-01-06 09:32 | Inpatient (IN) | payer OTHER ==
[~2023-01-06] VITALS: Ht 154.9 cm; Wt 70.0 kg
[2023-01-06 10:14] LABS: Basophils # (auto) 0 10 ^3/uL (0-0.2); Eosinophils # (auto) 0 10 ^3/uL (0-0.8)
[2023-01-06 10:16] LABS: Basophils % (auto) 0.2 % (0.0-2.0); Eosinophils % (auto) 0.1 % (0.0-7.0); Hematocrit 34.1 % (36.0-46.0); Lymphocytes # (auto) 2.2 10 ^3/uL (0.4-5.4); Lymphocytes % (auto) 17.3 % (10.0-50.0); Mean Corpuscular Hemoglobin 24.2 pg (28.0-32.0); Mean Corpuscular Hgb Conc. 32.2 g/dL (32.0-36.0); Mean Corpuscular Volume 75.2 fL (80.0-100.0); Monocytes % (auto) 7.8 % (0.0-12.0); Neutrophils # (auto) 9.3 10 ^3/uL (1.6-8.6); Neutrophils % (auto) 74.6 % (37.0-80.0); Red Blood Cells 4.54 10^6/uL (4.0-5.20); Red Cell Distribution Width 19.3 % (11.8-14.3); White Blood Cell 12.5 10^3/uL (4.4-10.8)
[2023-01-06 10:32] LABS: Alanine Aminotransferase 13 U/L (7-40); Albumin 3.8 g/dL (3.2-4.8); Alkaline Phosphatase 78 U/L (46-116); Anion Gap 6 (5-15); Aspartate Aminotransferase < 8 U/L (13-40); BUN/Creatinine Ratio 22.4 (10.0-20.0); Bilirubin, Total 0.3 mg/dL (0.2-1.0); Blood Urea Nitrogen 15 mg/dL (9-23); Calcium 8.6 mg/dL (8.5-10.1); Carbon Dioxide 26 mmol/L (20-30); Chloride 112 mmol/L (98-107); Glucose 97 mg/dL (74-106); Potassium 3.6 mmol/L (3.5-5.1); Sodium 144 mmol/L (136-145); Total Protein 5.9 g/dL (5.7-8.2)
[2023-01-06] MEDS ORDERED: hydrALAZINE HCL 20 MG/ML VL IV ONE (10:45)
[2023-01-06] MEDS ORDERED: SODIUM CHLORIDE 0.9% 1,000 ML IV ONE ×2 (10:45→17:15)
[2023-01-06] MEDS ORDERED: ONDANSETRON HCL 4 MG/2 ML VIAL IV ONE ×2 (10:45→21:15)
[2023-01-06] MEDS ORDERED: HYDROmorphone HCL 2 MG/ML VL/or syr IV ONE (10:45)
[2023-01-06] MEDS ORDERED: diphenhdrAMINE HCL 50 MG/1 ML VL IV ONE (11:00)
[2023-01-06] MEDS ORDERED: methylPREDNISolone SOD SUCC 40 MG/ML VL IV ONE (11:00)
[2023-01-06 12:29] LABS: INR 1.34 (0.9-1.15); Prothrombin Time 13.8 sec (9.3-11.8)
[2023-01-06] MEDS ORDERED: IOHEXOL 350 MG/ML 100ML IJ ONE (13:05)
[2023-01-06] MEDS ORDERED: hydrALAZINE HCL 20 MG/ML VL IV PRN (16:30)
[2023-01-06] MEDS ORDERED: ONDANSETRON HCL 4 MG/2 ML VIAL IV PRN ×2 (16:30→20:00)
[2023-01-06] MEDS ORDERED: HYDROmorphone HCL 2 MG/ML VL/or syr IV PRN ×2 (16:30→20:00)
[2023-01-06] MEDS ORDERED: ALBUMIN 25% 100 ML IV ONE ×2 (17:00→21:15)
[2023-01-06] MEDS ORDERED: TRANEXAMIC ACID 1,000 MG in SODIUM CHL 0.9% 100 ML IV ONE (17:15)
[2023-01-06 19:30] VITALS: PULSE 83; RESP 22; O2SAT 99
[2023-01-06 20:10] VITALS: PULSE 80; RESP 20; O2SAT 96
[2023-01-06] MEDS ORDERED: oxyCODONE ER 20 MG TAB PO ONE (21:15)
[2023-01-06] MEDS ORDERED: DOCUSATE SOD 100 MG CAP PO SCH (22:00)
[2023-01-06] MEDS: DOCUSATE SOD 100 MG CAP PO SCH (22:00)
[2023-01-06 22:14] LABS: Basophils # (auto) 0 10 ^3/uL (0-0.2); Basophils % (auto) 0.1 % (0.0-2.0); Eosinophils # (auto) 0 10 ^3/uL (0-0.8); Hematocrit 27.4 % (36.0-46.0); Hemoglobin 8.5 g/dL (12.2-16.2); Lymphocytes # (auto) 0.6 10 ^3/uL (0.4-5.4); Lymphocytes % (auto) 3.6 % (10.0-50.0); Mean Corpuscular Hemoglobin 23.9 pg (28.0-32.0); Mean Corpuscular Volume 77.2 fL (80.0-100.0); Monocytes # (auto) 0.2 10 ^3/uL (0-1.3); Monocytes % (auto) 1.5 % (0.0-12.0); Neutrophils # (auto) 15.8 10 ^3/uL (1.6-8.6); Neutrophils % (auto) 94.8 % (37.0-80.0); Red Blood Cells 3.56 10^6/uL (4.0-5.20); White Blood Cell 16.6 10^3/uL (4.4-10.8)
[2023-01-06 22:15] LABS: Red Cell Distribution Width 20.5 % (11.8-14.3)
[2023-01-07] VITALS (15 sets, daily range): BP systolic 92–139; BP diastolic 38–90; PULSE 68–95; RESP 10–18; TEMP 97.3–98.5; O2SAT 96–99
[2023-01-07 00:18] LABS: Hematocrit 20.9 % (36.0-46.0)
[2023-01-07 00:33] LABS: Hemoglobin 6.6 g/dL (12.2-16.2)
[2023-01-07 04:13] LABS: Hemoglobin 8.3 g/dL (12.2-16.2)
[2023-01-07 04:15] LABS: Hematocrit 25.8 % (36.0-46.0)
[2023-01-07] MEDS ORDERED: HYDROmorphone HCL 2 MG/ML VL/or syr IV PRN (05:15)
[2023-01-07 07:57] LABS: Hemoglobin 9.6 g/dL (12.2-16.2)
[2023-01-07 07:59] LABS: Hematocrit 29.7 % (36.0-46.0)
[2023-01-07] MEDS ORDERED: TORSEMIDE 20 MG TAB PO SCH (10:00)
[2023-01-07] MEDS ORDERED: FLUoxetine HCL 20 MG CAP PO SCH (10:00)
[2023-01-07] MEDS: DOCUSATE SOD 100 MG CAP PO SCH ×2 (10:00→22:00)
[2023-01-07] MEDS: FLUoxetine HCL 10 MG CAP PO SCH (10:53)
[2023-01-07] MEDS: OXYCODONE W/ ACETAMINOPHEN 5/325MG TABLET PO PRN ×2 (10:53→18:50)
[2023-01-07] MEDS: TORSEMIDE 20 MG TAB PO SCH (10:56)
[2023-01-07] MEDS ORDERED: PHENAZOPYRIDINE HCL 95 MG PO PRN (14:45)
[2023-01-07] MEDS: QUEtiapine FUMARATE 25 MG TAB PO SCH (22:16)
[2023-01-07] MEDS: PANTOPRAZOLE 40 MG TAB PO SCH (22:16)
[2023-01-08] VITALS (7 sets, daily range): BP systolic 100–123; BP diastolic 37–62; PULSE 73–92; RESP 15–19; TEMP 97.5–98.5; O2SAT 93–96
[2023-01-08 06:45] LABS: Basophils # (auto) 0 10 ^3/uL (0-0.2); Basophils % (auto) 0.1 % (0.0-2.0); Eosinophils # (auto) 0 10 ^3/uL (0-0.8); Hemoglobin 8.2 g/dL (12.2-16.2); Nucleated Red Blood Cells % 0.1 %
[2023-01-08 06:47] LABS: Hematocrit 25.5 % (36.0-46.0); Lymphocytes # (auto) 0.8 10 ^3/uL (0.4-5.4); Lymphocytes % (auto) 4.9 % (10.0-50.0); Mean Corpuscular Hemoglobin 25.2 pg (28.0-32.0); Mean Corpuscular Hgb Conc. 32.2 g/dL (32.0-36.0); Mean Corpuscular Volume 78.2 fL (80.0-100.0); Monocytes # (auto) 1.4 10 ^3/uL (0-1.3); Monocytes % (auto) 9.3 % (0.0-12.0); Neutrophils # (auto) 13.3 10 ^3/uL (1.6-8.6); Neutrophils % (auto) 85.7 % (37.0-80.0); Red Blood Cells 3.26 10^6/uL (4.0-5.20); Red Cell Distribution Width 19.4 % (11.8-14.3); White Blood Cell 15.6 10^3/uL (4.4-10.8)
[2023-01-08 08:50] LABS: Chloride 105 mmol/L (98-107)
[2023-01-08 08:53] LABS: Anion Gap 7 (5-15); Calcium 8.1 mg/dL (8.5-10.1); Carbon Dioxide 24 mmol/L (20-30)
[2023-01-08 08:58] LABS: Alkaline Phosphatase 52 U/L (46-116); BUN/Creatinine Ratio 17.8 (10.0-20.0); Glucose 119 mg/dL (74-106)
[2023-01-08 09:00] LABS: Albumin 3.9 g/dL (3.2-4.8); Aspartate Aminotransferase < 8 U/L (13-40); Bilirubin, Total 0.3 mg/dL (0.2-1.0); Total Protein 5.4 g/dL (5.7-8.2)
[2023-01-08] MEDS: OXYCODONE W/ ACETAMINOPHEN 5/325MG TABLET PO PRN (09:43)
[2023-01-08] MEDS: PANTOPRAZOLE 40 MG TAB PO SCH ×2 (09:44→23:00)
[2023-01-08] MEDS: FLUoxetine HCL 10 MG CAP PO SCH (09:44)
[2023-01-08] MEDS: DOCUSATE SOD 100 MG CAP PO SCH ×3 (09:44→23:00)
[2023-01-08] MEDS: TORSEMIDE 20 MG TAB PO SCH (09:45)
[2023-01-08] MEDS ORDERED: LISINOPRIL 10 MG TAB PO SCH (10:00)
[2023-01-08] MEDS ORDERED: ROPINIROLE HYDROCHLORIDE 4 MG PO SCH (10:00)
[2023-01-08] MEDS ORDERED: FLUoxetine HCL 20 MG CAP PO SCH (10:00)
[2023-01-08] MEDS ORDERED: GABAPENTIN 300 MG CAP PO SCH (10:00)
[2023-01-08] MEDS ORDERED: FLUOXETINE HCL PO SCH (10:00)
[2023-01-08 15:10] LABS: Alanine Aminotransferase 9 U/L (7-40); Blood Urea Nitrogen 66 mg/dL (9-23); Sodium 136 mmol/L (136-145)
[2023-01-08 15:13] LABS: Potassium 6.4 mmol/L (3.5-5.1)
[2023-01-08] MEDS ORDERED: SODIUM ZIRCONIUM CYCL 10 GM PAK PO ONE ×2 (15:45→18:00)
[2023-01-08 17:20] LABS: Chloride 102 mmol/L (98-107); Sodium 132 mmol/L (136-145)
[2023-01-08 17:21] LABS: Anion Gap 8 (5-15); Calcium 7.7 mg/dL (8.7-10.4); Carbon Dioxide 22 mmol/L (20-30)
[2023-01-08 17:26] LABS: BUN/Creatinine Ratio 11.5 (10.0-20.0); Glucose 108 mg/dL (74-106)
[2023-01-08 17:30] LABS: Blood Urea Nitrogen 51 mg/dL (9-23)
[2023-01-08 17:32] LABS: Potassium 6.6 mmol/L (3.5-5.1)
[2023-01-08] MEDS ORDERED: DEXTROSE (50%) 50ML SYRG IV ONE (18:00)
[2023-01-08] MEDS ORDERED: CALCIUM GLUC 1,000mg/50ml-NS 50 ML IV ONE (18:00)
[2023-01-08] MEDS ORDERED: InsuLIN REG 1unit/0.01ml Soln (100units/ml) IV ONE (18:00)
[2023-01-08] MEDS ORDERED: FUROSEMIDE 20 MG/2 ML VIAL IV ONE ×2 (18:00→20:45)
[2023-01-08 20:28] LABS: Chloride 101 mmol/L (98-107); Sodium 133 mmol/L (136-145)
[2023-01-08 20:29] LABS: Anion Gap 10 (5-15); Calcium 7.6 mg/dL (8.7-10.4); Carbon Dioxide 22 mmol/L (20-30)
[2023-01-08 20:34] LABS: BUN/Creatinine Ratio 12.4 (10.0-20.0); Blood Urea Nitrogen 58 mg/dL (9-23); Glucose 128 mg/dL (74-106)
[2023-01-08 20:36] LABS: Potassium 5.8 mmol/L (3.5-5.1)
[2023-01-08] MEDS: QUEtiapine FUMARATE 25 MG TAB PO SCH (22:59)
[2023-01-08 23:43] LABS: Chloride 101 mmol/L (98-107); Sodium 134 mmol/L (136-145)
[2023-01-08 23:44] LABS: Anion Gap 10 (5-15); Carbon Dioxide 23 mmol/L (20-30)
[2023-01-08 23:45] LABS: Calcium 7.8 mg/dL (8.5-10.1)
[2023-01-08 23:49] LABS: BUN/Creatinine Ratio 15.1 (10.0-20.0); Glucose 90 mg/dL (74-106)
[2023-01-08 23:59] LABS: Blood Urea Nitrogen 69 mg/dL (9-23)
[2023-01-09] VITALS (38 sets, daily range): BP systolic 105–167; BP diastolic 24–116; PULSE 73–103; RESP 5–20; TEMP 97–98.2; O2SAT 91–100
[2023-01-09] LABS: Potassium 5.7 mmol/L (3.5-5.1)
[2023-01-09] MEDS ORDERED: SODIUM ZIRCONIUM CYCL 10 GM PAK PO ONE ×2 (03:00→09:30)
[2023-01-09 06:10] LABS: Albumin 3.6 g/dL (3.2-4.8); Alkaline Phosphatase 54 U/L (46-116); Anion Gap 11 (5-15); Aspartate Aminotransferase < 8 U/L (13-40); BUN/Creatinine Ratio 11.8 (10.0-20.0); Calcium 7.6 mg/dL (8.7-10.4); Carbon Dioxide 21 mmol/L (20-30); Chloride 101 mmol/L (98-107); Glucose 85 mg/dL (74-106); Sodium 133 mmol/L (136-145)
[2023-01-09 06:11] LABS: Bilirubin, Total 0.3 mg/dL (0.2-1.0); Total Protein 5.4 g/dL (5.7-8.2)
[2023-01-09 06:23] LABS: Basophils # (auto) 0 10 ^3/uL (0-0.2); Eosinophils # (auto) 0 10 ^3/uL (0-0.8); Eosinophils % (auto) 0.1 % (0.0-7.0); Nucleated Red Blood Cells % 0.1 %; White Blood Cell 16.5 10^3/uL (4.4-10.8)
[2023-01-09 06:43] LABS: Basophils % (auto) 0.1 % (0.0-2.0); Hematocrit 26.9 % (36.0-46.0); Hemoglobin 8.3 g/dL (12.2-16.2); Lymphocytes # (auto) 1.3 10 ^3/uL (0.4-5.4); Lymphocytes % (auto) 7.6 % (10.0-50.0); Mean Corpuscular Hgb Conc. 30.8 g/dL (32.0-36.0); Mean Corpuscular Volume 81.2 fL (80.0-100.0); Monocytes # (auto) 1.9 10 ^3/uL (0-1.3); Monocytes % (auto) 11.8 % (0.0-12.0); Neutrophils # (auto) 13.2 10 ^3/uL (1.6-8.6); Neutrophils % (auto) 80.4 % (37.0-80.0); Red Blood Cells 3.31 10^6/uL (4.0-5.20); Red Cell Distribution Width 19.8 % (11.8-14.3)
[2023-01-09 06:56] LABS: Alanine Aminotransferase < 9 U/L (7-40); Blood Urea Nitrogen 58 mg/dL (9-23)
[2023-01-09] MEDS ORDERED: MORPHINE SULFATE INJ 2 MG/ml SYRG IV ONE (07:45)
[2023-01-09] MEDS ORDERED: CEFEPIME 1GM/ 50ML 50 ML IV ONE (09:30)
[2023-01-09] MEDS ORDERED: SODIUM BICARBONATE 50ML VIAL 100 ML in SOD CHL 0.45% 1,000 ML IV SCH (09:30)
[2023-01-09] MEDS ORDERED: DEXTROSE (50%) 50ML SYRG IV ONE (09:30)
[2023-01-09] MEDS ORDERED: InsuLIN REG 1unit/0.01ml Soln (100units/ml) IV ONE (09:30)
[2023-01-09] MEDS ORDERED: CALCIUM GLUC 1,000mg/50ml-NS 50 ML IV ONE (09:30)
[2023-01-09] MEDS ORDERED: FUROSEMIDE 20 MG/2 ML VIAL IV ONE (09:30)
[2023-01-09 10:18] LABS: Chloride 100 mmol/L (98-107); Potassium 4.8 mmol/L (3.5-5.1); Sodium 135 mmol/L (136-145)
[2023-01-09 10:19] LABS: Anion Gap 12 (5-15); Carbon Dioxide 23 mmol/L (20-30)
[2023-01-09 10:20] LABS: Calcium 7.5 mg/dL (8.7-10.4)
[2023-01-09 10:24] LABS: Glucose 127 mg/dL (74-106)
[2023-01-09 10:25] LABS: BUN/Creatinine Ratio 16.3 (10.0-20.0)
[2023-01-09 10:27] LABS: Creatine Kinase IFCC 58 U/L (34-145)
[2023-01-09] MEDS: HYDROmorphone HCL 2 MG/ML VL/or syr IV PRN ×2 (10:42→23:01)
[2023-01-09] MEDS ORDERED: SODIUM BICARBONATE 8.4 % INJ 50ML VIAL IV ONE (11:30)
[2023-01-09] MEDS ORDERED: GELATIN 1 SPONGE SIZE 100 TOP ONE (12:06)
[2023-01-09] MEDS ORDERED: CHLORHEXIDINE 4% TOPICAL soln 237ML TOP ONE (12:07)
[2023-01-09] MEDS ORDERED: BUPIVACAINE HCL 50 ML ONE (12:09)
[2023-01-09 12:12] LABS: Blood Urea Nitrogen 75 mg/dL (9-23)
[2023-01-09] MEDS ORDERED: D5W/SOD CHL 0.45% 1,000 ML IV ONE (14:00)
[2023-01-09 14:22] LABS: Urine Bacteria NONE SEEN /hpf (None Seen); Urine Blood 2+ /uL (Negative); Urine Clarity HAZY (Clear); Urine Hyaline Cast FEW /lpf (0 - 2); Urine Mucus FEW (None Seen); Urine Protein, UAD TRACE (Negative); Urine Specific Gravity 1.015 (1.001-1.035); Urine Urobilinogen Normal (Negative); Urine WBC 5 /hpf (0 - 5)
[2023-01-09 14:23] LABS: Urine Color Straw (Yellow)
[2023-01-09] MEDS ORDERED: FUROSEMIDE 100 MG/10ML VIAL IV ONE (16:15)
[2023-01-09] MEDS ORDERED: SODIUM BICARBONATE 50ML VIAL 50 ML in D5W/SOD CHL 0.45% 1,000 ML IV ONE (16:15)
[2023-01-09 17:56] LABS: Chloride 103 mmol/L (98-107); Potassium 4.6 mmol/L (3.5-5.1); Sodium 137 mmol/L (136-145)
[2023-01-09 17:57] LABS: Anion Gap 8 (5-15); Carbon Dioxide 26 mmol/L (20-30)
[2023-01-09 17:58] LABS: Calcium 7.3 mg/dL (8.5-10.1)
[2023-01-09 18:02] LABS: BUN/Creatinine Ratio 21.3 (10.0-20.0); Blood Urea Nitrogen 68 mg/dL (9-23); Glucose 122 mg/dL (74-106)
[2023-01-09 19:35] LABS: Basophils # (auto) 0 10 ^3/uL (0-0.2); Eosinophils # (auto) 0 10 ^3/uL (0-0.8); Hemoglobin 9.3 g/dL (12.2-16.2); Lymphocytes # (auto) 0.4 10 ^3/uL (0.4-5.4); Monocytes # (auto) 0.6 10 ^3/uL (0-1.3)
[2023-01-09 19:36] LABS: Basophils % (auto) 0.1 % (0.0-2.0); Hematocrit 28.5 % (36.0-46.0); Lymphocytes % (auto) 2.2 % (10.0-50.0); Mean Corpuscular Hemoglobin 26.4 pg (28.0-32.0); Mean Corpuscular Hgb Conc. 32.8 g/dL (32.0-36.0); Mean Corpuscular Volume 80.6 fL (80.0-100.0); Monocytes % (auto) 3.4 % (0.0-12.0); Neutrophils # (auto) 16.4 10 ^3/uL (1.6-8.6); Neutrophils % (auto) 94.3 % (37.0-80.0); Red Blood Cells 3.53 10^6/uL (4.0-5.20); White Blood Cell 17.4 10^3/uL (4.4-10.8)
[2023-01-09 19:38] LABS: Red Cell Distribution Width 21.4 % (11.8-14.3)
[2023-01-09] MEDS: OXYCODONE W/ ACETAMINOPHEN 5/325MG TABLET PO PRN (19:42)
[2023-01-09 19:55] LABS: INR 0.99 (0.9-1.15); Partial Thromboplastin Time 25.6 SEC (24.5-34.5); Prothrombin Time 10.4 sec (9.3-11.8)
[2023-01-09] MEDS ORDERED: CIPROFLOXACIN 400MG/200ML 200 ML IV SCH (22:00)
[2023-01-09] MEDS ORDERED: CEFEPIME 1GM/ 50ML 50 ML IV SCH (22:00)
[2023-01-10] VITALS (67 sets, daily range): BP systolic 102–184; BP diastolic 34–59; PULSE 71–101; RESP 6–21; TEMP 97.9–98.6; O2SAT 90–98
[2023-01-10] MEDS: HYDROmorphone HCL 2 MG/ML VL/or syr IV PRN ×3 (03:15→19:09)
[2023-01-10 05:02] LABS: Basophils # (auto) 0 10 ^3/uL (0-0.2); Eosinophils # (auto) 0 10 ^3/uL (0-0.8); Hemoglobin 8.3 g/dL (12.2-16.2); Lymphocytes # (auto) 0.3 10 ^3/uL (0.4-5.4); Lymphocytes % (auto) 2.3 % (10.0-50.0); Monocytes # (auto) 0.4 10 ^3/uL (0-1.3); Nucleated Red Blood Cells % 0.1 %
[2023-01-10 05:06] LABS: Basophils % (auto) 0.1 % (0.0-2.0); Hematocrit 24.7 % (36.0-46.0); Mean Corpuscular Hemoglobin 26.9 pg (28.0-32.0); Mean Corpuscular Hgb Conc. 33.4 g/dL (32.0-36.0); Mean Corpuscular Volume 80.7 fL (80.0-100.0); Monocytes % (auto) 3.2 % (0.0-12.0); Neutrophils # (auto) 10.8 10 ^3/uL (1.6-8.6); Neutrophils % (auto) 94.4 % (37.0-80.0); Red Blood Cells 3.07 10^6/uL (4.0-5.20); White Blood Cell 11.4 10^3/uL (4.4-10.8)
[2023-01-10 05:08] LABS: Chloride 101 mmol/L (98-107); Potassium 4.6 mmol/L (3.5-5.1); Sodium 136 mmol/L (136-145)
[2023-01-10 05:09] LABS: Calcium 6.9 mg/dL (8.5-10.1)
[2023-01-10 05:14] LABS: BUN/Creatinine Ratio 27.5 (10.0-20.0); Blood Urea Nitrogen 69 mg/dL (9-23); Glucose 208 mg/dL (74-106)
[2023-01-10 05:18] LABS: Partial Thromboplastin Time 26.8 SEC (24.5-34.5); Prothrombin Time 10.5 sec (9.3-11.8)
[2023-01-10 05:27] LABS: Anion Gap 9 (5-15); Carbon Dioxide 26 mmol/L (20-30)
[2023-01-10] MEDS: OXYCODONE W/ ACETAMINOPHEN 5/325MG TABLET PO PRN ×2 (09:10→14:21)
[2023-01-10] MEDS ORDERED: SODIUM BICARBONATE 50ML VIAL 50 ML in SOD CHL 0.45% 1,000 ML IV SCH (11:30)
[2023-01-10] MEDS ORDERED: GABAPENTIN 300 MG CAP PO ONE (11:30)
[2023-01-10] MEDS ORDERED: Ensure HIGH Protein Chocolate 8oz Bottle PO SCH ×2 (12:00)
[2023-01-10] MEDS ORDERED: CEFEPIME 2GM/50ML NS 50 ML IV SCH (12:50)
[2023-01-10] MEDS: CEFEPIME 2GM/50ML NS 50 ML IV SCH (14:22)
[2023-01-10] MEDS: SODIUM CHLORIDE 0.9% 1,000 ML IV SCH (14:29)
[2023-01-10] MEDS: Nepro With Carbsteady ButterPecan 8oz Carton PO SCH (18:00)
[2023-01-10] MEDS: GABAPENTIN 300 MG CAP PO SCH (21:51)
[2023-01-11] VITALS (23 sets, daily range): BP systolic 109–150; BP diastolic 37–57; PULSE 67–90; RESP 10–20; TEMP 97.3–98.4; O2SAT 90–100
[2023-01-11] MEDS: HYDROmorphone HCL 2 MG/ML VL/or syr IV PRN ×2 (02:12→09:25)
[2023-01-11 05:23] LABS: Albumin 3.6 g/dL (3.2-4.8); Alkaline Phosphatase 56 U/L (46-116); Anion Gap 5 (5-15); Aspartate Aminotransferase < 8 U/L (13-40); BUN/Creatinine Ratio 33.9 (10.0-20.0); Bilirubin, Total 0.4 mg/dL (0.2-1.0); Carbon Dioxide 28 mmol/L (20-30); Chloride 103 mmol/L (98-107); Potassium 5.3 mmol/L (3.5-5.1); Sodium 136 mmol/L (136-145)
[2023-01-11 05:24] LABS: Hematocrit 27.5 % (36.0-46.0); Hemoglobin 8.7 g/dL (12.2-16.2); Mean Corpuscular Hemoglobin 26.2 pg (28.0-32.0); Mean Corpuscular Hgb Conc. 31.6 g/dL (32.0-36.0); Mean Corpuscular Volume 82.9 fL (80.0-100.0); Red Blood Cells 3.31 10^6/uL (4.0-5.20); Total Protein 5.5 g/dL (5.7-8.2); White Blood Cell 15.3 10^3/uL (4.4-10.8)
[2023-01-11 05:27] LABS: Band Neutrophils % (manual) 0; Basophils % (manual) 0 (0.0-2.0); Blast Cells 0; Eosinophils % (manual) 0 (0-7); Metamyelocytes % 0; Myelocytes % 0; Promyelocytes % 0; Reactive Lymphocytes 0; Red Cell Distribution Width 21.4 % (11.8-14.3)
[2023-01-11 05:33] LABS: Alanine Aminotransferase < 9 U/L (7-40); Blood Urea Nitrogen 40 mg/dL (9-23)
[2023-01-11 05:47] LABS: Glucose 122 mg/dL (74-106)
[2023-01-11] MEDS: SODIUM CHLORIDE 0.9% 1,000 ML IV SCH ×2 (07:00→23:35)
[2023-01-11] MEDS: Nepro With Carbsteady ButterPecan 8oz Carton PO SCH ×3 (08:00→18:00)
[2023-01-11] MEDS ORDERED: SODIUM ZIRCONIUM CYCL 10 GM PAK PO ONE ×2 (09:15→09:30)
[2023-01-11] MEDS ORDERED: LACTULOSE 20Gm/30ML SOLN PO ONE (09:30)
[2023-01-11 10:17] LABS: Lymphocytes % (manual) 8 (10.0-50.0); Monocytes % (manual) 1 (0-12)
[2023-01-11 10:18] LABS: Anisocytosis Slight; Platelet Estimate Adequa
[2023-01-11] MEDS: CEFEPIME 2GM/50ML NS 50 ML IV SCH (10:28)
[2023-01-11] MEDS: GABAPENTIN 300 MG CAP PO SCH ×2 (10:33→21:26)
[2023-01-11] MEDS: FLUoxetine HCL 20 MG CAP PO SCH (10:33)
[2023-01-11] MEDS: OXYCODONE W/ ACETAMINOPHEN 5/325MG TABLET PO PRN (13:17)
[2023-01-11] MEDS: CLINDAMYCIN 600MG IV 50 ML IV SCH ×2 (14:39→21:26)
[2023-01-11] MEDS ORDERED: GLYCERIN ADULT RECTAL SUPP PR ONE (18:30)
[2023-01-11] MEDS: DOCUSATE SOD 100 MG CAP PO SCH (21:26)
[2023-01-11] MEDS: PRAMIPEXOLE DIHYDROCHLORIDE MO 0.25 MG TAB PO SCH (22:00)
[2023-01-12] VITALS (22 sets, daily range): BP systolic 113–143; BP diastolic 34–109; PULSE 67–93; RESP 10–22; TEMP 97.4–98.7; O2SAT 91–97
[2023-01-12 05:27] LABS: Hemoglobin 8.2 g/dL (12.2-16.2); Mean Corpuscular Hgb Conc. 31.9 g/dL (32.0-36.0)
[2023-01-12 05:30] LABS: Hematocrit 25.8 % (36.0-46.0); Mean Corpuscular Hemoglobin 26.5 pg (28.0-32.0); Mean Corpuscular Volume 83.2 fL (80.0-100.0); White Blood Cell 15.6 10^3/uL (4.4-10.8)
[2023-01-12 05:38] LABS: Albumin 3.3 g/dL (3.2-4.8); Alkaline Phosphatase 50 U/L (46-116); Anion Gap 5 (5-15); Aspartate Aminotransferase 9 U/L (13-40); BUN/Creatinine Ratio 42.3 (10.0-20.0); Blood Urea Nitrogen 33 mg/dL (9-23); Calcium 7.9 mg/dL (8.5-10.1); Carbon Dioxide 29 mmol/L (20-30); Chloride 107 mmol/L (98-107); Glucose 106 mg/dL (74-106); Potassium 4.9 mmol/L (3.5-5.1); Sodium 141 mmol/L (136-145)
[2023-01-12 05:39] LABS: Bilirubin, Total 0.4 mg/dL (0.2-1.0); Total Protein 5.1 g/dL (5.7-8.2)
[2023-01-12 05:41] LABS: Red Cell Distribution Width 21.5 % (11.8-14.3)
[2023-01-12 05:43] LABS: Band Neutrophils % (manual) 0; Basophils % (manual) 0 (0.0-2.0); Blast Cells 0; Eosinophils % (manual) 0 (0-7); Promyelocytes % 0; Reactive Lymphocytes 0
[2023-01-12] MEDS: CLINDAMYCIN 600MG IV 50 ML IV SCH ×3 (05:45→21:40)
[2023-01-12 06:07] LABS: Alanine Aminotransferase < 9 U/L (7-40)
[2023-01-12 06:33] LABS: Lymphocytes % (manual) 13 (10.0-50.0); Metamyelocytes % 1; Monocytes % (manual) 4 (0-12); Myelocytes % 2; Platelet Estimate Adequate
[2023-01-12] MEDS: Nepro With Carbsteady ButterPecan 8oz Carton PO SCH ×3 (08:00→18:00)
[2023-01-12] MEDS: LACTULOSE 20Gm/30ML SOLN PO SCH (09:16)
[2023-01-12] MEDS: FLUoxetine HCL 20 MG CAP PO SCH (09:17)
[2023-01-12] MEDS: GABAPENTIN 300 MG CAP PO SCH ×2 (09:17→21:40)
[2023-01-12] MEDS: DOCUSATE SOD 100 MG CAP PO SCH ×2 (09:17→21:40)
[2023-01-12] MEDS: levoFLOXacin 500MG 100 ML IV SCH (09:17)
[2023-01-12] MEDS: OXYCODONE W/ ACETAMINOPHEN 5/325MG TABLET PO PRN (09:51)
[2023-01-12] MEDS: FUROSEMIDE 40 MG/4 ML VIAL IV SCH (09:53)
[2023-01-12] MEDS ORDERED: ALPRAZolam 0.25 MG TAB PO PRN (11:15)
[2023-01-12] MEDS: HYDROmorphone HCL 2 MG/ML VL/or syr IV PRN ×2 (15:09→21:42)
[2023-01-12] MEDS: SODIUM CHLORIDE 0.9% 1,000 ML IV SCH (16:15)
[2023-01-12] MEDS: PRAMIPEXOLE DIHYDROCHLORIDE MO 0.25 MG TAB PO SCH (21:40)
[2023-01-13] VITALS (18 sets, daily range): BP systolic 102–144; BP diastolic 39–64; PULSE 69–97; RESP 10–26; TEMP 96.6–98.7; O2SAT 89–95
[2023-01-13] MEDS: CLINDAMYCIN 600MG IV 50 ML IV SCH ×3 (05:34→21:33)
[2023-01-13 07:37] LABS: Hematocrit 26.6 % (36.0-46.0); Hemoglobin 8.5 g/dL (12.2-16.2); Mean Corpuscular Hemoglobin 26.2 pg (28.0-32.0); Mean Corpuscular Hgb Conc. 31.9 g/dL (32.0-36.0); Red Blood Cells 3.25 10^6/uL (4.0-5.20); White Blood Cell 13.2 10^3/uL (4.4-10.8)
[2023-01-13 07:39] LABS: Red Cell Distribution Width 21.2 % (11.8-14.3)
[2023-01-13 07:40] LABS: Basophils % (manual) 0 (0.0-2.0); Blast Cells 0; Myelocytes % 0; Promyelocytes % 0; Reactive Lymphocytes 0
[2023-01-13] MEDS: Nepro With Carbsteady ButterPecan 8oz Carton PO SCH ×3 (08:00→18:00)
[2023-01-13 08:11] LABS: Alanine Aminotransferase 10 U/L (7-40); Albumin 3.4 g/dL (3.2-4.8); Alkaline Phosphatase 50 U/L (46-116); Anion Gap 5 (5-15); Aspartate Aminotransferase 11 U/L (13-40); Bilirubin, Total 0.7 mg/dL (0.2-1.0); Blood Urea Nitrogen 15 mg/dL (9-23); Carbon Dioxide 31 mmol/L (20-30); Chloride 103 mmol/L (98-107); Glucose 102 mg/dL (74-106); Potassium 4.3 mmol/L (3.5-5.1); Sodium 139 mmol/L (136-145); Total Protein 5.3 g/dL (5.7-8.2)
[2023-01-13 08:52] LABS: Band Neutrophils % (manual) 2; Lymphocytes % (manual) 14 (10.0-50.0); Metamyelocytes % 1; Monocytes % (manual) 9 (0-12)
[2023-01-13 08:54] LABS: Eosinophils % (manual) 4 (0-7)
[2023-01-13 08:55] LABS: Anisocytosis Slight; Hypochromia Slight; Platelet Estimate Adequate; Tear Drop Cells FEW
[2023-01-13] MEDS: SODIUM CHLORIDE 0.9% 1,000 ML IV SCH (08:55)
[2023-01-13] MEDS: NYSTATIN TOPICAL POWDER 15GM TOP SCH (10:00)
[2023-01-13] MEDS: levoFLOXacin 500MG 100 ML IV SCH (10:10)
[2023-01-13] MEDS: RIVAROXABAN 2.5 MG TAB PO SCH (10:11)
[2023-01-13] MEDS: LACTULOSE 20Gm/30ML SOLN PO SCH (10:11)
[2023-01-13] MEDS: FUROSEMIDE 40 MG/4 ML VIAL IV SCH (10:11)
[2023-01-13] MEDS: GABAPENTIN 300 MG CAP PO SCH ×2 (10:11→21:33)
[2023-01-13] MEDS: FLUoxetine HCL 20 MG CAP PO SCH (10:11)
[2023-01-13] MEDS: DOCUSATE SOD 100 MG CAP PO SCH ×2 (10:11→21:33)
[2023-01-13] MEDS: MUPIROCIN 2% OINT 15gm or 22gm TOP SCH (10:12)
[2023-01-13] MEDS: HYDROmorphone HCL 2 MG/ML VL/or syr IV PRN ×2 (10:22→19:40)
[2023-01-13] MEDS: PRAMIPEXOLE DIHYDROCHLORIDE MO 0.25 MG TAB PO SCH (21:38)
[2023-01-14] VITALS (24 sets, daily range): BP systolic 102–146; BP diastolic 30–52; PULSE 66–97; RESP 10–22; TEMP 96.8–99.1; O2SAT 90–98
[2023-01-14] MEDS: SODIUM CHLORIDE 0.9% 1,000 ML IV SCH ×2 (02:13→18:15)
[2023-01-14] MEDS: CLINDAMYCIN 600MG IV 50 ML IV SCH ×2 (05:33→14:00)
[2023-01-14 05:54] LABS: Anion Gap 5 (5-15); Carbon Dioxide 30 mmol/L (20-30); Chloride 103 mmol/L (98-107); Potassium 4.5 mmol/L (3.5-5.1); Sodium 138 mmol/L (136-145)
[2023-01-14 05:55] LABS: Calcium 7.8 mg/dL (8.7-10.4)
[2023-01-14 05:57] LABS: Hematocrit 25.1 % (36.0-46.0); Hemoglobin 8.3 g/dL (12.2-16.2); Mean Corpuscular Hemoglobin 26.9 pg (28.0-32.0); Mean Corpuscular Hgb Conc. 32.9 g/dL (32.0-36.0); Mean Corpuscular Volume 81.8 fL (80.0-100.0); Red Blood Cells 3.07 10^6/uL (4.0-5.20); White Blood Cell 8.7 10^3/uL (4.4-10.8)
[2023-01-14 05:58] LABS: Red Cell Distribution Width 21.1 % (11.8-14.3)
[2023-01-14 05:59] LABS: Glucose 105 mg/dL (74-106)
[2023-01-14 06:00] LABS: BUN/Creatinine Ratio 29.3 (10.0-20.0); Basophils % (manual) 0 (0.0-2.0); Blast Cells 0; Blood Urea Nitrogen 17 mg/dL (9-23); Promyelocytes % 0; Reactive Lymphocytes 0
[2023-01-14 09:09] LABS: Band Neutrophils % (manual) 2; Eosinophils % (manual) 5 (0-7); Lymphocytes % (manual) 14 (10.0-50.0); Metamyelocytes % 1; Monocytes % (manual) 6 (0-12); Myelocytes % 2
[2023-01-14 09:16] LABS: Anisocytosis Slight; Ovalocytes FEW
[2023-01-14 09:17] LABS: Platelet Estimate Decreased
[2023-01-14] MEDS: Nepro With Carbsteady ButterPecan 8oz Carton PO SCH ×3 (09:25→18:00)
[2023-01-14] MEDS: NYSTATIN TOPICAL POWDER 15GM TOP SCH (10:00)
[2023-01-14] MEDS: LACTULOSE 20Gm/30ML SOLN PO SCH (11:00)
[2023-01-14] MEDS: DOCUSATE SOD 100 MG CAP PO SCH ×2 (11:00→22:12)
[2023-01-14] MEDS: FLUoxetine HCL 20 MG CAP PO SCH (11:00)
[2023-01-14] MEDS: HYDROmorphone HCL 2 MG/ML VL/or syr IV PRN ×3 (11:01→22:26)
[2023-01-14] MEDS: GABAPENTIN 300 MG CAP PO SCH ×2 (11:01→22:12)
[2023-01-14] MEDS: FUROSEMIDE 40 MG/4 ML VIAL IV SCH (11:01)
[2023-01-14] MEDS: RIVAROXABAN 2.5 MG TAB PO SCH (11:02)
[2023-01-14] MEDS: MUPIROCIN 2% OINT 15gm or 22gm TOP SCH (11:02)
[2023-01-14] MEDS: levoFLOXacin 500MG 100 ML IV SCH (11:02)
[2023-01-14] MEDS: PRAMIPEXOLE DIHYDROCHLORIDE MO 0.25 MG TAB PO SCH (22:00)
[2023-01-14] MEDS: CLINDAMYCIN 300MG IV 100 ML IV SCH (22:12)
[2023-01-15] VITALS (22 sets, daily range): BP systolic 96–147; BP diastolic 36–54; PULSE 73–98; RESP 10–32; TEMP 98.9–99.6; O2SAT 90–98
[2023-01-15] MEDS: HYDROmorphone HCL 2 MG/ML VL/or syr IV PRN ×3 (08:32→20:42)
[2023-01-15] MEDS: CLINDAMYCIN 300MG IV 100 ML IV SCH (08:38)
[2023-01-15] MEDS: Nepro With Carbsteady ButterPecan 8oz Carton PO SCH ×3 (08:38→18:00)
[2023-01-15] MEDS: levoFLOXacin 500MG 100 ML IV SCH (10:38)
[2023-01-15] MEDS: DOCUSATE SOD 100 MG CAP PO SCH ×2 (10:49→22:00)
[2023-01-15] MEDS: LACTULOSE 20Gm/30ML SOLN PO SCH (10:50)
[2023-01-15] MEDS: FUROSEMIDE 40 MG/4 ML VIAL IV SCH (10:50)
[2023-01-15] MEDS: GABAPENTIN 300 MG CAP PO SCH ×2 (10:51→20:48)
[2023-01-15] MEDS: FLUoxetine HCL 20 MG CAP PO SCH (10:51)
[2023-01-15] MEDS: RIVAROXABAN 2.5 MG TAB PO SCH (10:59)
[2023-01-15] MEDS: MUPIROCIN 2% OINT 15gm or 22gm TOP SCH (10:59)
[2023-01-15] MEDS: CLINDAMYCIN HCL 150 MG CAP PO SCH ×2 (13:32→20:48)
[2023-01-15] MEDS ORDERED: EPOETIN ALFA-EPBX 10,000 UNIT/1ML VIAL SC ONE (15:00)
[2023-01-15] MEDS: NYSTATIN TOPICAL POWDER 15GM TOP SCH (18:01)
[2023-01-15 18:54] LABS: % Iron Saturation 12.1 % (15-50)
[2023-01-15] MEDS: PRAMIPEXOLE DIHYDROCHLORIDE MO 0.25 MG TAB PO SCH (20:47)
[2023-01-16] VITALS (15 sets, daily range): BP systolic 107–159; BP diastolic 34–61; PULSE 73–97; RESP 11–18; TEMP 98–99.3; O2SAT 93–98
[2023-01-16 04:59] LABS: White Blood Cell 15.2 10^3/uL (4.4-10.8)
[2023-01-16 05:01] LABS: Hematocrit 26.7 % (36.0-46.0); Hemoglobin 8.5 g/dL (12.2-16.2); Mean Corpuscular Hemoglobin 26.2 pg (28.0-32.0); Mean Corpuscular Hgb Conc. 31.9 g/dL (32.0-36.0); Red Blood Cells 3.25 10^6/uL (4.0-5.20)
[2023-01-16 05:03] LABS: Red Cell Distribution Width 21.3 % (11.8-14.3)
[2023-01-16 05:05] LABS: Band Neutrophils % (manual) 0; Basophils % (manual) 0 (0.0-2.0); Blast Cells 0; Metamyelocytes % 0; Promyelocytes % 0; Reactive Lymphocytes 0
[2023-01-16 06:01] LABS: Eosinophils % (manual) 1 (0-7); Lymphocytes % (manual) 11 (10.0-50.0); Monocytes % (manual) 7 (0-12); Myelocytes % 2; Ovalocytes FEW; Platelet Estimate Adequate
[2023-01-16 06:02] LABS: Anisocytosis Slight; Large Platelets FEW; Stomatocytes Few
[2023-01-16] MEDS: CLINDAMYCIN HCL 150 MG CAP PO SCH ×3 (06:45→21:25)
[2023-01-16] MEDS: Nepro With Carbsteady ButterPecan 8oz Carton PO SCH ×3 (08:00→21:25)
[2023-01-16] MEDS: LACTULOSE 20Gm/30ML SOLN PO SCH (10:00)
[2023-01-16] MEDS: NYSTATIN TOPICAL POWDER 15GM TOP SCH (10:00)
[2023-01-16] MEDS: MUPIROCIN 2% OINT 15gm or 22gm TOP SCH ×2 (10:00→13:33)
[2023-01-16] MEDS: levoFLOXacin 500MG 100 ML IV SCH (10:33)
[2023-01-16] MEDS: DOCUSATE SOD 100 MG CAP PO SCH ×2 (10:34→21:25)
[2023-01-16] MEDS: GABAPENTIN 300 MG CAP PO SCH ×2 (10:34→21:25)
[2023-01-16] MEDS: FLUoxetine HCL 20 MG CAP PO SCH (10:34)
[2023-01-16] MEDS: FLORASTOR (S. BOULARDII) 250 MG CAP PO SCH (10:34)
[2023-01-16] MEDS: RIVAROXABAN 2.5 MG TAB PO SCH (11:38)
[2023-01-16] MEDS: OXYCODONE W/ ACETAMINOPHEN 5/325MG TABLET PO PRN (21:24)
[2023-01-16] MEDS: PRAMIPEXOLE DIHYDROCHLORIDE MO 0.25 MG TAB PO SCH (21:25)
[2023-01-17 05:00] VITALS: BP 139/50; PULSE 77; RESP 19; TEMP 98.7; O2SAT 96
[2023-01-17 05:23] LABS: Basophils # (auto) 0.1 10 ^3/uL (0-0.2); Eosinophils # (auto) 0.4 10 ^3/uL (0-0.8); Hematocrit 25.1 % (36.0-46.0); Hemoglobin 8.1 g/dL (12.2-16.2); Mean Corpuscular Hemoglobin 26.9 pg (28.0-32.0); Mean Corpuscular Hgb Conc. 32.1 g/dL (32.0-36.0); Monocytes # (auto) 1.4 10 ^3/uL (0-1.3); Nucleated Red Blood Cells % 0.1 %; Red Blood Cells 2.99 10^6/uL (4.0-5.20)
[2023-01-17 05:26] LABS: Basophils % (auto) 0.6 % (0.0-2.0); Eosinophils % (auto) 3.3 % (0.0-7.0); Lymphocytes # (auto) 1.5 10 ^3/uL (0.4-5.4); Lymphocytes % (auto) 12.3 % (10.0-50.0); Mean Corpuscular Volume 83.9 fL (80.0-100.0); Monocytes % (auto) 10.9 % (0.0-12.0); Neutrophils # (auto) 9.1 10 ^3/uL (1.6-8.6); Neutrophils % (auto) 72.9 % (37.0-80.0); White Blood Cell 12.5 10^3/uL (4.4-10.8)
[2023-01-17] MEDS: CLINDAMYCIN HCL 150 MG CAP PO SCH ×3 (05:32→22:30)
[2023-01-17 05:34] LABS: Chloride 108 mmol/L (98-107); Sodium 140 mmol/L (136-145)
[2023-01-17 05:35] LABS: Anion Gap 6 (5-15); Carbon Dioxide 26 mmol/L (20-30)
[2023-01-17 05:36] LABS: Calcium 8.3 mg/dL (8.7-10.4); Red Cell Distribution Width 21.5 % (11.8-14.3)
[2023-01-17 05:41] LABS: BUN/Creatinine Ratio 12.3 (10.0-20.0); Blood Urea Nitrogen 7 mg/dL (9-23); Glucose 103 mg/dL (74-106)
[2023-01-17 08:00] VITALS: PULSE 75; RESP 18; O2SAT 96
[2023-01-17 09:00] VITALS: BP 128/60; PULSE 72; RESP 20; TEMP 98.1; O2SAT 96
[2023-01-17] MEDS: NYSTATIN TOPICAL POWDER 15GM TOP SCH (10:00)
[2023-01-17] MEDS: FLORASTOR (S. BOULARDII) 250 MG CAP PO SCH (11:42)
[2023-01-17] MEDS: DOCUSATE SOD 100 MG CAP PO SCH ×2 (11:42→22:30)
[2023-01-17] MEDS: FLUoxetine HCL 20 MG CAP PO SCH (11:42)
[2023-01-17] MEDS: GABAPENTIN 300 MG CAP PO SCH ×2 (11:43→22:30)
[2023-01-17] MEDS: Nepro With Carbsteady ButterPecan 8oz Carton PO SCH ×3 (11:45→17:55)
[2023-01-17] MEDS: RIVAROXABAN 2.5 MG TAB PO SCH (11:45)
[2023-01-17 13:03] VITALS: BP 145/58; PULSE 82; RESP 20; TEMP 98.5; O2SAT 95
[2023-01-17 20:15] VITALS: PULSE 87; RESP 20; O2SAT 94
[2023-01-17 22:00] VITALS: BP 142/60; PULSE 87; RESP 20; TEMP 98.5; O2SAT 96
[2023-01-17] MEDS: PRAMIPEXOLE DIHYDROCHLORIDE MO 0.25 MG TAB PO SCH (22:30)
[2023-01-18] VITALS (7 sets, daily range): BP systolic 109–147; BP diastolic 54–70; PULSE 74–98; RESP 17–20; TEMP 98.1–99.6; O2SAT 95–98
[2023-01-18] MEDS: OXYCODONE W/ ACETAMINOPHEN 5/325MG TABLET PO PRN (00:25)
[2023-01-18] MEDS: CLINDAMYCIN HCL 150 MG CAP PO SCH ×3 (05:37→21:38)
[2023-01-18 06:30] LABS: Basophils # (auto) 0.1 10 ^3/uL (0-0.2); Basophils % (auto) 0.5 % (0.0-2.0); Eosinophils # (auto) 0.4 10 ^3/uL (0-0.8); Eosinophils % (auto) 3.1 % (0.0-7.0); Hematocrit 24.8 % (36.0-46.0); Hemoglobin 8.1 g/dL (12.2-16.2); Lymphocytes # (auto) 1.4 10 ^3/uL (0.4-5.4); Mean Corpuscular Hemoglobin 26.7 pg (28.0-32.0); Mean Corpuscular Hgb Conc. 32.5 g/dL (32.0-36.0); Monocytes # (auto) 1.4 10 ^3/uL (0-1.3); Monocytes % (auto) 11.5 % (0.0-12.0); Neutrophils # (auto) 8.7 10 ^3/uL (1.6-8.6); Neutrophils % (auto) 72.9 % (37.0-80.0); Nucleated Red Blood Cells % 0.1 %; Red Blood Cells 3.02 10^6/uL (4.0-5.20); White Blood Cell 11.9 10^3/uL (4.4-10.8)
[2023-01-18 06:33] LABS: Red Cell Distribution Width 21.5 % (11.8-14.3)
[2023-01-18] MEDS: Nepro With Carbsteady ButterPecan 8oz Carton PO SCH ×3 (08:00→18:00)
[2023-01-18] MEDS: NYSTATIN TOPICAL POWDER 15GM TOP SCH (10:00)
[2023-01-18] MEDS: GABAPENTIN 300 MG CAP PO SCH ×2 (11:01→21:39)
[2023-01-18] MEDS: FLORASTOR (S. BOULARDII) 250 MG CAP PO SCH (11:02)
[2023-01-18] MEDS: FLUoxetine HCL 20 MG CAP PO SCH (11:02)
[2023-01-18] MEDS: levoFLOXacin 500 MG TAB PO SCH (11:02)
[2023-01-18] MEDS: DOCUSATE SOD 100 MG CAP PO SCH ×2 (11:02→21:39)
[2023-01-18] MEDS: RIVAROXABAN 2.5 MG TAB PO SCH (11:03)
[2023-01-18] MEDS: MUPIROCIN 2% OINT 15gm or 22gm TOP SCH (11:05)
[2023-01-18] MEDS ORDERED: POTASSIUM CHL 20 Meq TABLET PO ONE (14:30)
[2023-01-18] MEDS ORDERED: FUROSEMIDE 20 MG/2 ML VIAL IV ONE (14:30)
[2023-01-18] MEDS: PRAMIPEXOLE DIHYDROCHLORIDE MO 0.25 MG TAB PO SCH (21:38)
[2023-01-19] VITALS (7 sets, daily range): BP systolic 126–150; BP diastolic 54–67; PULSE 80–91; RESP 16–20; TEMP 97.5–98.5; O2SAT 93–97
[2023-01-19] MEDS ORDERED: HYDROcodone-ACET 5/325MG TAB PO PRN (00:15)
[2023-01-19] MEDS: CLINDAMYCIN HCL 150 MG CAP PO SCH ×3 (05:48→21:37)
[2023-01-19 05:49] LABS: Basophils # (auto) 0.1 10 ^3/uL (0-0.2); Eosinophils # (auto) 0.3 10 ^3/uL (0-0.8); Eosinophils % (auto) 2.7 % (0.0-7.0); Hemoglobin 8.4 g/dL (12.2-16.2); Lymphocytes # (auto) 1.3 10 ^3/uL (0.4-5.4); Mean Corpuscular Volume 82.2 fL (80.0-100.0); Neutrophils # (auto) 7.5 10 ^3/uL (1.6-8.6); White Blood Cell 10.6 10^3/uL (4.4-10.8)
[2023-01-19 05:51] LABS: Basophils % (auto) 0.6 % (0.0-2.0); Hematocrit 25.7 % (36.0-46.0); Lymphocytes % (auto) 12.3 % (10.0-50.0); Mean Corpuscular Hemoglobin 26.9 pg (28.0-32.0); Mean Corpuscular Hgb Conc. 32.7 g/dL (32.0-36.0); Monocytes # (auto) 1.4 10 ^3/uL (0-1.3); Monocytes % (auto) 13.4 % (0.0-12.0); Red Blood Cells 3.13 10^6/uL (4.0-5.20)
[2023-01-19 05:56] LABS: Chloride 107 mmol/L (98-107); Potassium 3.6 mmol/L (3.5-5.1); Sodium 141 mmol/L (136-145)
[2023-01-19 05:57] LABS: Anion Gap 7 (5-15); Calcium 8.5 mg/dL (8.5-10.1); Carbon Dioxide 27 mmol/L (20-30)
[2023-01-19 06:02] LABS: BUN/Creatinine Ratio 15.4 (10.0-20.0); Blood Urea Nitrogen 8 mg/dL (9-23); Glucose 100 mg/dL (74-106)
[2023-01-19 06:10] LABS: Red Cell Distribution Width 21.6 % (11.8-14.3)
[2023-01-19] MEDS: Nepro With Carbsteady ButterPecan 8oz Carton PO SCH ×3 (08:00→18:00)
[2023-01-19] MEDS: NYSTATIN TOPICAL POWDER 15GM TOP SCH (10:00)
[2023-01-19] MEDS: MUPIROCIN 2% OINT 15gm or 22gm TOP SCH (10:00)
[2023-01-19] MEDS: levoFLOXacin 500 MG TAB PO SCH (10:47)
[2023-01-19] MEDS: FUROSEMIDE 40 MG TAB PO SCH (10:47)
[2023-01-19] MEDS: GABAPENTIN 300 MG CAP PO SCH ×2 (10:48→21:38)
[2023-01-19] MEDS: FLUoxetine HCL 20 MG CAP PO SCH (10:49)
[2023-01-19] MEDS: POTASSIUM CHL 20 Meq TABLET PO SCH (10:49)
[2023-01-19] MEDS: DOCUSATE SOD 100 MG CAP PO SCH ×2 (10:49→21:38)
[2023-01-19] MEDS: FLORASTOR (S. BOULARDII) 250 MG CAP PO SCH (10:50)
[2023-01-19] MEDS ORDERED: CEPH500T PO (11:35)
[2023-01-19] MEDS ORDERED: TRAM50TA2 PO (11:35)
[2023-01-19] MEDS: PRAMIPEXOLE DIHYDROCHLORIDE MO 0.25 MG TAB PO SCH (21:38)
[2023-01-20 04:40] VITALS: BP 141/60; PULSE 75; RESP 18; TEMP 98; O2SAT 95
[2023-01-20] MEDS: CLINDAMYCIN HCL 150 MG CAP PO SCH (05:46)
[2023-01-20 08:00] VITALS: PULSE 74; RESP 16; O2SAT 93
[2023-01-20] MEDS: Nepro With Carbsteady ButterPecan 8oz Carton PO SCH ×2 (08:00→12:00)
[2023-01-20 09:00] VITALS: BP 134/54; PULSE 74; RESP 16; TEMP 97.9; O2SAT 93
[2023-01-20] MEDS: GABAPENTIN 300 MG CAP PO SCH (09:41)
[2023-01-20] MEDS: POTASSIUM CHL 20 Meq TABLET PO SCH (09:41)
[2023-01-20] MEDS: DOCUSATE SOD 100 MG CAP PO SCH (09:41)
[2023-01-20] MEDS: FLUoxetine HCL 20 MG CAP PO SCH (09:41)
[2023-01-20] MEDS: FLORASTOR (S. BOULARDII) 250 MG CAP PO SCH (09:42)
[2023-01-20] MEDS: FUROSEMIDE 40 MG TAB PO SCH (09:42)
[2023-01-20] MEDS: levoFLOXacin 500 MG TAB PO SCH (09:42)
[2023-01-20] MEDS: MUPIROCIN 2% OINT 15gm or 22gm TOP SCH (09:43)
[2023-01-20] MEDS: NYSTATIN TOPICAL POWDER 15GM TOP SCH (09:43)
[2023-01-20 11:16] VITALS: BP 134/54; PULSE 74; RESP 16; TEMP 97.9; O2SAT 93
== END 2023-01-20 12:10 | disposition home health service (06) | DRG 907 ==
LOC: ER 09:32 → TELE 16:37 → OVERFLOW 16:56 → WEST WING 01-07 10:39 → TELE-WESTW 01-09 01:08 → ICU WEST 01-09 10:20 → DOU IN ICU 01-10 12:30 → TELE-EAST 01-16 06:33 → EAST 01-18 02:22
PROVIDERS: ADMIT Internal Medicine; ATTEND Internal Medicine
PROC: 30233N1 Transfusion of Nonautologous Red Blood Cells into Peripheral Vein, Percutaneous Approach (ICD-10-PCS; 2023-01-07)
PROC: 30233L1 Transfusion of Nonautologous Fresh Plasma into Peripheral Vein, Percutaneous Approach (ICD-10-PCS; 2023-01-09)
PROC: 05HB33Z Insertion of Infusion Device into Right Basilic Vein, Percutaneous Approach (ICD-10-PCS; 2023-01-09)
PROC: B54MZZA Ultrasonography of Right Upper Extremity Veins, Guidance (ICD-10-PCS; 2023-01-09)
PROC: 04CK0ZZ Extirpation of Matter from Right Femoral Artery, Open Approach (ICD-10-PCS; principal; 2023-01-09 13:11)
DX: I97.630 Postprocedural hematoma of a circulatory system organ or structure following a cardiac catheterization (principal); N17.0 Acute kidney failure with tubular necrosis; D62 Acute posthemorrhagic anemia; E87.20 Acidosis, unspecified; M62.82 Rhabdomyolysis; I50.32 Chronic diastolic (congestive) heart failure; E87.5 Hyperkalemia; I10 Essential (primary) hypertension; J98.2 Interstitial emphysema; Y83.8 Other surgical procedures as the cause of abnormal reaction of the patient, or of later complication, without mention of misadventure at the time of the procedure; J44.9 Chronic obstructive pulmonary disease, unspecified; N14.11 Contrast-induced nephropathy; T50.8X5A Adverse effect of diagnostic agents, initial encounter; I11.0 Hypertensive heart disease with heart failure; E66.9 Obesity, unspecified; Z68.29 Body mass index [BMI] 29.0-29.9, adult; Z86.711 Personal history of pulmonary embolism; Z86.718 Personal history of other venous thrombosis and embolism; Y92.89 Other specified places as the place of occurrence of the external cause; Z88.0 Allergy status to penicillin; Z88.8 Allergy status to other drugs, medicaments and biological substances
CPT/HCPCS: 36415; 71045; 72148; 73700; 73721; 74176; 74177; 76881; 80048; 80053; 81001; 82550; 82962; 83540; 83550; 83735; 84100; 85007; 85014; 85018; 85025; 85027; 85045; 85379; 85610; 85730; 86850; 86900; 86901; 86920; 87081; 93005; 93458; 97110; 97116; 97163; 97530; 99152; G0378; J0692; J1815; J1956; J2250; J2405; J3490; P9047

== ENCOUNTER → 2023-01-25 | Outpatient (CLI) | payer OTHER ==
[~2023-01-25] MED LIST changes: +CEPH500T PO; +TRAM50TA2 PO
[2023-01-25 10:27] LABS: Eosinophils # (auto) 0.2 10 ^3/uL (0-0.8); Hemoglobin 10.6 g/dL (12.2-16.2); Lymphocytes # (auto) 0.9 10 ^3/uL (0.4-5.4); White Blood Cell 5.2 10^3/uL (4.4-10.8)
[2023-01-25 10:29] LABS: Basophils # (auto) 0.1 10 ^3/uL (0-0.2); Basophils % (auto) 1.5 % (0.0-2.0); Hematocrit 33.2 % (36.0-46.0); Mean Corpuscular Hemoglobin 26.2 pg (28.0-32.0); Mean Corpuscular Hgb Conc. 31.9 g/dL (32.0-36.0); Mean Corpuscular Volume 82.2 fL (80.0-100.0); Monocytes # (auto) 0.7 10 ^3/uL (0-1.3); Neutrophils # (auto) 3.3 10 ^3/uL (1.6-8.6); Neutrophils % (auto) 63.5 % (37.0-80.0); Nucleated Red Blood Cells % 0.1 %; Red Blood Cells 4.04 10^6/uL (4.0-5.20); Red Cell Distribution Width 21.2 % (11.8-14.3)
[2023-01-25 10:44] LABS: Albumin 4.3 g/dL (3.2-4.8); Alkaline Phosphatase 80 U/L (46-116); Amylase 48 U/L (30-118); Anion Gap 8 (5-15); Aspartate Aminotransferase 17 U/L (13-40); Calcium 9.2 mg/dL (8.5-10.1); Carbon Dioxide 27 mmol/L (20-30); Chloride 104 mmol/L (98-107); Glucose 109 mg/dL (74-106); Potassium 3.8 mmol/L (3.5-5.1); Sodium 139 mmol/L (136-145)
[2023-01-25 10:45] LABS: Bilirubin, Total 0.6 mg/dL (0.2-1.0); Total Protein 6.8 g/dL (5.7-8.2)
[2023-01-25 10:46] LABS: Alanine Aminotransferase < 9 U/L (7-40); BUN/Creatinine Ratio 7.5 (10.0-20.0); Blood Urea Nitrogen < 5 mg/dL (9-23)
[2023-01-25 11:09] LABS: Urine Bacteria NONE SEEN /hpf (None Seen); Urine Blood Negative /uL (Negative); Urine Clarity CLOUDY (Clear); Urine Color Yellow (Yellow); Urine Mucus FEW (None Seen); Urine Protein, UAD 1+ (Negative); Urine Specific Gravity 1.026 (1.001-1.035); Urine WBC 57 /hpf (0 - 5); Urine WBC Clumps PRESENT /hpf (None Seen); Urine pH 5.5 (5.0-8.0)
[2023-01-25 11:24] LABS: Lipase 46 U/L (12-53)
== END | disposition home or self-care (01) ==
LOC: LAB 09:39
PROVIDERS: ATTEND Internal Medicine
DX: I27.21 Secondary pulmonary arterial hypertension (principal); N39.0 Urinary tract infection, site not specified; D64.9 Anemia, unspecified
CPT/HCPCS: 36415; 80053; 81001; 82150; 83036; 83690; 85025; 87086

== ENCOUNTER → 2023-01-25 | Outpatient (CLI) | payer OTHER | END | disposition home or self-care (01) | LOC: LAB 09:59 | PROVIDERS: ATTEND Internal Medicine | DX: N39.0 Urinary tract infection, site not specified (principal) | CPT/HCPCS: 87086 ==

== ENCOUNTER → 2023-02-21 | Outpatient (CLI) | payer OTHER | END | disposition home or self-care (01) | LOC: LAB 15:45 | PROVIDERS: ATTEND Internal Medicine | DX: S81.801D Unspecified open wound, right lower leg, subsequent encounter (principal); N39.0 Urinary tract infection, site not specified; X58.XXXD Exposure to other specified factors, subsequent encounter | CPT/HCPCS: 87205 ==

== ENCOUNTER 2023-03-11 15:41 | Inpatient (IN) | payer OTHER ==
[~2023-03-11] VITALS: Ht 154.9 cm; Wt 71.3 kg
[2023-03-11 17:59] VITALS: RESP 16
[2023-03-11] MEDS ORDERED: ACETAMINOPHEN 325 MG TAB PO PRN (18:30)
[2023-03-11] MEDS ORDERED: MECLIZINE HCL 25 MG TAB PO PRN (18:30)
[2023-03-11] MEDS ORDERED: NITROGLYCERIN 0.4 MG SL TAB SL PRN (18:30)
[2023-03-11] MEDS ORDERED: MORPHINE SULFATE INJ 2 MG/ml SYRG IV PRN (18:30)
[2023-03-11] MEDS ORDERED: SODIUM CHLORIDE 0.9% 1,000 ML IV SCH (18:30)
[2023-03-11] MEDS ORDERED: traMADol HCL 50 MG TAB PO PRN (18:30)
[2023-03-11] MEDS ORDERED: HYDROcodone-ACET 5/325MG TAB PO PRN (18:30)
[2023-03-11 19:32] LABS: Basophils # (auto) 0 10 ^3/uL (0-0.2); Eosinophils # (auto) 0 10 ^3/uL (0-0.8); Hemoglobin 12.8 g/dL (12.2-16.2); Lymphocytes # (auto) 0.3 10 ^3/uL (0.4-5.4); Lymphocytes % (auto) 4.6 % (10.0-50.0); Monocytes # (auto) 0 10 ^3/uL (0-1.3); Neutrophils # (auto) 6.2 10 ^3/uL (1.6-8.6)
[2023-03-11 19:33] LABS: Basophils % (auto) 0.2 % (0.0-2.0); Hematocrit 40.2 % (36.0-46.0); Mean Corpuscular Volume 78.4 fL (80.0-100.0); Monocytes % (auto) 0.6 % (0.0-12.0); Neutrophils % (auto) 94.6 % (37.0-80.0); Red Blood Cells 5.12 10^6/uL (4.0-5.20); Red Cell Distribution Width 18.8 % (11.8-14.3); White Blood Cell 6.5 10^3/uL (4.4-10.8)
[2023-03-11 19:45] LABS: Prothrombin Time 10.5 sec (9.3-11.8)
[2023-03-11] MEDS ORDERED: LISI2.5T47 PO (19:46)
[2023-03-11 19:47] LABS: Alanine Aminotransferase 14 U/L (7-40); Albumin 4.2 g/dL (3.2-4.8); Alkaline Phosphatase 90 U/L (46-116); Anion Gap 8 (5-15); Aspartate Aminotransferase 13 U/L (13-40); BUN/Creatinine Ratio 12.2 (10.0-20.0); Bilirubin, Total 0.2 mg/dL (0.2-1.0); Blood Urea Nitrogen 9 mg/dL (9-23); Calcium 9.5 mg/dL (8.5-10.1); Carbon Dioxide 25 mmol/L (20-30); Chloride 105 mmol/L (98-107); Glucose 181 mg/dL (74-106); Potassium 4.7 mmol/L (3.5-5.1); Sodium 138 mmol/L (136-145); Total Protein 6.3 g/dL (5.7-8.2)
[2023-03-11] MEDS ORDERED: PANT40TA2 PO (19:47)
[2023-03-11] MEDS ORDERED: APIX2.5T PO (19:48)
[2023-03-11] MEDS ORDERED: POTA10TA51 PO (19:51)
[2023-03-11] MEDS ORDERED: ROPI4TAB6 PO (19:51)
[2023-03-11] MEDS ORDERED: FURO1TAB33 PO (19:51)
[2023-03-11 20:00] VITALS: PULSE 79; RESP 18; O2SAT 95
[2023-03-11] MEDS: QUEtiapine FUMARATE 25 MG TAB PO SCH (22:00)
[2023-03-11] MEDS: PANTOPRAZOLE 40 MG TAB PO SCH (22:08)
[2023-03-11] MEDS: ATORVASTATIN 20 MG TAB PO SCH (22:08)
[2023-03-12] VITALS (9 sets, daily range): BP systolic 123–133; BP diastolic 47–59; PULSE 62–87; RESP 16–20; TEMP 97.8–99.5; O2SAT 91–94
[2023-03-12 04:10] LABS: Urine Bacteria NONE SEEN /hpf (None Seen); Urine Blood Negative /uL (Negative); Urine Clarity Clear (Clear); Urine Color Yellow (Yellow); Urine Protein, UAD Negative (Negative); Urine Specific Gravity 1.035 (1.001-1.035); Urine Urobilinogen Normal (Negative); Urine WBC 2 /hpf (0 - 5); Urine pH 6.5 (5.0-8.0)
[2023-03-12] MEDS: FLUoxetine HCL 20 MG CAP PO SCH (09:56)
[2023-03-12] MEDS: PANTOPRAZOLE 40 MG TAB PO SCH ×2 (09:56→21:37)
[2023-03-12] MEDS: GABAPENTIN 300 MG CAP PO SCH (09:56)
[2023-03-12] MEDS: ROPINIROLE HYDROCHLORIDE 4 MG PO SCH (10:00)
[2023-03-12] MEDS ORDERED: LISINOPRIL 10 MG TAB PO SCH (10:00)
[2023-03-12] MEDS ORDERED: ASPirin 81 mg TAB PO SCH (10:00)
[2023-03-12] MEDS ORDERED: RIVAROXABAN 10 MG TAB PO SCH (10:00)
[2023-03-12] MEDS ORDERED: LORazepam 2MG/ML-1ML VIAL IV ONE (10:30)
[2023-03-12] MEDS ORDERED: LISI-275 PO (13:03)
[2023-03-12] MEDS: QUEtiapine FUMARATE 25 MG TAB PO SCH (21:37)
[2023-03-12] MEDS: ATORVASTATIN 20 MG TAB PO SCH (21:37)
[2023-03-12] MEDS: APIXABAN 2.5 MG TAB PO SCH (21:37)
[2023-03-13 05:00] VITALS: BP 149/57; PULSE 57; RESP 18; TEMP 98.1; O2SAT 94
[2023-03-13 08:00] VITALS: PULSE 57
[2023-03-13 09:26] VITALS: BP 149/75; PULSE 66; RESP 15; TEMP 97.9; O2SAT 94
[2023-03-13] MEDS: APIXABAN 2.5 MG TAB PO SCH (09:34)
[2023-03-13] MEDS: PANTOPRAZOLE 40 MG TAB PO SCH (09:34)
[2023-03-13] MEDS: GABAPENTIN 300 MG CAP PO SCH (09:34)
[2023-03-13] MEDS: FLUoxetine HCL 20 MG CAP PO SCH (09:35)
[2023-03-13] MEDS: ROPINIROLE HYDROCHLORIDE 4 MG PO SCH (09:37)
[2023-03-13] MEDS ORDERED: APIX5TAB PO (10:13)
[2023-03-13 12:52] VITALS: BP 124/44; PULSE 58; RESP 17; TEMP 98.4; O2SAT 94
== END 2023-03-13 16:17 | disposition home health service (06) | DRG 69 ==
LOC: TELE-EAST 17:55
PROVIDERS: ADMIT Nurse Practitioner Family; ATTEND Internal Medicine
DX: G45.9 Transient cerebral ischemic attack, unspecified (principal); I50.32 Chronic diastolic (congestive) heart failure; R42 Dizziness and giddiness; I11.0 Hypertensive heart disease with heart failure; E66.9 Obesity, unspecified; F32.A Depression, unspecified; F41.9 Anxiety disorder, unspecified; Z86.711 Personal history of pulmonary embolism; Z86.718 Personal history of other venous thrombosis and embolism; Z79.899 Other long term (current) drug therapy; Z88.0 Allergy status to penicillin; Z91.041 Radiographic dye allergy status; Z68.29 Body mass index [BMI] 29.0-29.9, adult
CPT/HCPCS: 36415; 70551; 71045; 80053; 81001; 84484; 85025; 85610; 85730; 87205; 93005; 97110; 97116; 97163; 97530; G0378

== ENCOUNTER → 2023-03-30 | Outpatient (CLI) | payer OTHER ==
[~2023-03-30] MED LIST changes: -ACET-6 PO; +APIX2.5T PO; +APIX5TAB PO; -CEPH500T PO; +FURO1TAB33 PO; +LISI-275 PO; -LISI10TA34 PO; -PHEN95TA10 PO; +POTA10TA51 PO; -QUET25TA37 PO; -RIVA10TA PO; -TRAM50TA2 PO
[2023-03-30 12:12] LABS: Anion Gap 7 (5-15); Carbon Dioxide 26 mmol/L (20-30); Chloride 106 mmol/L (98-107); Potassium 4.3 mmol/L (3.5-5.1); Sodium 139 mmol/L (136-145)
[2023-03-30 12:13] LABS: Calcium 9.5 mg/dL (8.5-10.1)
[2023-03-30 12:18] LABS: BUN/Creatinine Ratio 12.9 (10.0-20.0); Blood Urea Nitrogen 8 mg/dL (9-23); Glucose 101 mg/dL (74-106); Triglycerides 108 mg/dL (< 150)
[2023-03-30 12:19] LABS: LDL Cholesterol 139 mg/dL (< 100)
[2023-03-30 12:20] LABS: Cholesterol 209 mg/dL (< 200); HDL Cholesterol 59 mg/dL (40-59)
== END | disposition home or self-care (01) ==
LOC: LAB 11:19
PROVIDERS: ATTEND Internal Medicine
DX: I10 Essential (primary) hypertension (principal); D64.9 Anemia, unspecified
CPT/HCPCS: 36415; 80048; 80061; 82306

== ENCOUNTER 2023-06-01 08:29 | Emergency (ER) | payer OTHER ==
[~2023-06-01] VITALS: Ht 154.9 cm; Wt 68.2 kg
[2023-06-01 09:59] VITALS: BP 144/62; PULSE 77; RESP 17; TEMP 98.3; O2SAT 98
== END 2023-06-01 10:01 | disposition home or self-care (01) ==
LOC: ER 08:29
DX: R20.0 Anesthesia of skin (principal); I10 Essential (primary) hypertension; J45.909 Unspecified asthma, uncomplicated; F32.9 Major depressive disorder, single episode, unspecified; F41.9 Anxiety disorder, unspecified; E78.5 Hyperlipidemia, unspecified; F17.210 Nicotine dependence, cigarettes, uncomplicated; Z98.890 Other specified postprocedural states
CPT/HCPCS: 70450; 93005

== ENCOUNTER 2023-07-31 10:48 | Inpatient (IN) | payer OTHER ==
[~2023-07-31] VITALS: Ht 154.9 cm; Wt 69.8 kg
[~2023-07-31 10:48] MED LIST changes: +POTA-36 PO; -POTA10TA51 PO; +ROPI4TAB23 PO; -ROPI4TAB6 PO
[2023-07-31 12:31] LABS: Alanine Aminotransferase 14 U/L (7-40); Albumin 4.6 g/dL (3.2-4.8); Alkaline Phosphatase 117 U/L (46-116); Aspartate Aminotransferase 13 U/L (13-40); BUN/Creatinine Ratio 13.7 (10.0-20.0); Blood Urea Nitrogen 10 mg/dL (9-23); Chloride 104 mmol/L (98-107); Glucose 104 mg/dL (74-106); Magnesium 2.1 mg/dL (1.6-2.6); Potassium 4.7 mmol/L (3.5-5.1); Sodium 139 mmol/L (136-145)
[2023-07-31 12:32] LABS: Anion Gap 8 (5-15); Calcium 9.9 mg/dL (8.5-10.1); Carbon Dioxide 27 mmol/L (20-30)
[2023-07-31 12:33] LABS: Basophils # (auto) 0.1 10 ^3/uL (0-0.2); Eosinophils # (auto) 0.2 10 ^3/uL (0-0.8); Hemoglobin 13.8 g/dL (12.2-16.2); Lymphocytes # (auto) 1.4 10 ^3/uL (0.4-5.4); Monocytes # (auto) 0.8 10 ^3/uL (0-1.3)
[2023-07-31 12:37] LABS: Basophils % (auto) 0.9 % (0.0-2.0); Eosinophils % (auto) 2.9 % (0.0-7.0); Hematocrit 43.7 % (36.0-46.0); Lymphocytes % (auto) 19.7 % (10.0-50.0); Mean Corpuscular Hemoglobin 24.1 pg (28.0-32.0); Mean Corpuscular Hgb Conc. 31.7 g/dL (32.0-36.0); Monocytes % (auto) 11.1 % (0.0-12.0); Neutrophils # (auto) 4.5 10 ^3/uL (1.6-8.6); Neutrophils % (auto) 65.4 % (37.0-80.0); Red Blood Cells 5.75 10^6/uL (4.0-5.20); Red Cell Distribution Width 19.6 % (11.8-14.3); White Blood Cell 6.9 10^3/uL (4.4-10.8)
[2023-07-31 12:39] LABS: Bilirubin, Total 0.4 mg/dL (0.2-1.0)
[2023-07-31] MEDS ORDERED: DOCUSATE SOD 100 MG CAP PO PRN (14:00)
[2023-07-31] MEDS ORDERED: MORPHINE SULFATE INJ 2 MG/ml SYRG IV PRN ×2 (14:00)
[2023-07-31] MEDS ORDERED: NITROGLYCERIN 0.4 MG SL TAB SL PRN (14:00)
[2023-07-31] MEDS ORDERED: ONDANSETRON HCL 4 MG/2 ML VIAL IV PRN (14:00)
[2023-07-31] MEDS ORDERED: FLUO40CA PO (14:19)
[2023-07-31] MEDS ORDERED: GAB100C PO (14:19)
[2023-07-31 18:35] VITALS: PULSE 101; RESP 20; O2SAT 95
[2023-07-31 19:35] VITALS: PULSE 77; RESP 16; O2SAT 98
[2023-07-31] MEDS: APIXABAN 5 MG TAB PO SCH (21:12)
[2023-07-31] MEDS: PANTOPRAZOLE 40 MG TAB PO SCH (21:12)
[2023-08-01] MEDS: ACETAMINOPHEN 325 MG TAB PO PRN (04:12)
[2023-08-01 06:42] LABS: INR 1.08 (0.9-1.15); Partial Thromboplastin Time 32.6 SEC (24.5-34.5); Prothrombin Time 11.4 sec (9.3-11.8)
[2023-08-01 06:59] LABS: Alanine Aminotransferase 11 U/L (7-40); Albumin 4.1 g/dL (3.2-4.8); Alkaline Phosphatase 97 U/L (46-116); Anion Gap 6 (5-15); Aspartate Aminotransferase 14 U/L (13-40); BUN/Creatinine Ratio 16.7 (10.0-20.0); Bilirubin, Total 0.4 mg/dL (0.2-1.0); Blood Urea Nitrogen 12 mg/dL (9-23); Calcium 9.2 mg/dL (8.5-10.1); Carbon Dioxide 27 mmol/L (20-30); Chloride 105 mmol/L (98-107); Glucose 108 mg/dL (74-106); Potassium 4.3 mmol/L (3.5-5.1); Sodium 138 mmol/L (136-145); Total Protein 6.4 g/dL (5.7-8.2)
[2023-08-01 07:34] LABS: Basophils # (auto) 0.1 10 ^3/uL (0-0.2); Basophils % (auto) 0.9 % (0.0-2.0); Eosinophils # (auto) 0.2 10 ^3/uL (0-0.8); Eosinophils % (auto) 3.2 % (0.0-7.0); Hematocrit 38.6 % (36.0-46.0); Hemoglobin 12.3 g/dL (12.2-16.2); Lymphocytes # (auto) 1.6 10 ^3/uL (0.4-5.4); Lymphocytes % (auto) 21.7 % (10.0-50.0); Mean Corpuscular Hemoglobin 23.6 pg (28.0-32.0); Mean Corpuscular Hgb Conc. 31.8 g/dL (32.0-36.0); Mean Corpuscular Volume 74.4 fL (80.0-100.0); Monocytes # (auto) 0.9 10 ^3/uL (0-1.3); Monocytes % (auto) 12.3 % (0.0-12.0); Neutrophils # (auto) 4.6 10 ^3/uL (1.6-8.6); Neutrophils % (auto) 61.9 % (37.0-80.0); Nucleated Red Blood Cells % 0.5 %; Red Cell Distribution Width 19.5 % (11.8-14.3); White Blood Cell 7.5 10^3/uL (4.4-10.8)
[2023-08-01 08:18] VITALS: PULSE 77; RESP 16; O2SAT 98
[2023-08-01] MEDS: ROPINIROLE HYDROCHLORIDE 4 MG PO SCH (10:00)
[2023-08-01] MEDS: HYDROcodone-ACET 5/325MG TAB PO PRN (10:49)
[2023-08-01] MEDS: FLUoxetine HCL 20 MG CAP PO SCH (10:49)
[2023-08-01] MEDS: LISINOPRIL 5 MG TAB PO SCH (10:50)
[2023-08-01] MEDS: GABAPENTIN 100 MG CAP PO SCH (10:51)
[2023-08-01] MEDS ORDERED: PRAV20TA3 PO (13:11)
[2023-08-01] MEDS ORDERED: ERGO1CAP12 PO (13:11)
[2023-08-01 14:07] VITALS: BP 151/61; PULSE 88; RESP 20; TEMP 98.4; O2SAT 96
[2023-08-01 14:50] VITALS: BP 132/47; PULSE 68; RESP 16; TEMP 98.1; O2SAT 94
== END 2023-08-01 14:52 | disposition home or self-care (01) | DRG 69 ==
LOC: ER 10:48 → TELE 14:19
PROVIDERS: ADMIT Nurse Practitioner Family; ATTEND Nurse Practitioner Family
DX: G45.9 Transient cerebral ischemic attack, unspecified (principal); I50.32 Chronic diastolic (congestive) heart failure; I11.0 Hypertensive heart disease with heart failure; E78.5 Hyperlipidemia, unspecified; F41.9 Anxiety disorder, unspecified; F32.A Depression, unspecified; Z86.711 Personal history of pulmonary embolism; Z79.01 Long term (current) use of anticoagulants; Z90.49 Acquired absence of other specified parts of digestive tract; Z88.0 Allergy status to penicillin; Z91.041 Radiographic dye allergy status; Z90.710 Acquired absence of both cervix and uterus; Z79.899 Other long term (current) drug therapy
CPT/HCPCS: 36415; 70450; 70551; 71045; 80053; 83735; 84484; 85025; 85610; 85730; 93005; 97163; G0378

== ENCOUNTER 2023-08-21 14:36 | Inpatient (IN) | payer OTHER ==
[~2023-08-21] VITALS: Ht 154.9 cm; Wt 79.0 kg
[~2023-08-21 14:36] MED LIST changes: -ALBUAER3 IN; -APIX2.5T PO; +AZIT-43 PO; +CIPR-173 PO; +ERGO1CAP12 PO; -FLUO1TAB14 PO; +FLUO40CA PO; -FURO1TAB33 PO; +GAB100C PO; -GABA-1250 PO; -POTA-36 PO; +PRAV20TA3 PO
[2023-08-21] MEDS ORDERED: HYDROcodone-ACET 5/325MG TAB PO ONE (16:30)
[2023-08-21] MEDS: MORPHINE SULFATE 4 MG/ML SYR/VIAL IV ONE (18:13)
[2023-08-21 19:30] VITALS: PULSE 77; RESP 21; O2SAT 93
[2023-08-21] MEDS ORDERED: ACETAMINOPHEN 325 MG TAB PO PRN (19:30)
[2023-08-21 20:11] LABS: Eosinophils # (auto) 0.1 10 ^3/uL (0-0.8); Lymphocytes # (auto) 1.3 10 ^3/uL (0.4-5.4); Mean Corpuscular Hemoglobin 24.1 pg (28.0-32.0); Monocytes # (auto) 0.9 10 ^3/uL (0-1.3)
[2023-08-21 20:12] LABS: Basophils # (auto) 0.1 10 ^3/uL (0-0.2); Basophils % (auto) 0.5 % (0.0-2.0); Eosinophils % (auto) 0.8 % (0.0-7.0); Lymphocytes % (auto) 11.2 % (10.0-50.0); Mean Corpuscular Hgb Conc. 31.6 g/dL (32.0-36.0); Mean Corpuscular Volume 76.2 fL (80.0-100.0); Monocytes % (auto) 7.2 % (0.0-12.0); Neutrophils # (auto) 9.6 10 ^3/uL (1.6-8.6); Neutrophils % (auto) 80.3 % (37.0-80.0); Red Blood Cells 4.99 10^6/uL (4.0-5.20); Red Cell Distribution Width 19.2 % (11.8-14.3); White Blood Cell 11.9 10^3/uL (4.4-10.8)
[2023-08-21 20:25] LABS: INR 1.08 (0.9-1.15); Prothrombin Time 11.4 sec (9.3-11.8)
[2023-08-21 20:26] LABS: Triglycerides 95 mg/dL (< 150)
[2023-08-21 20:27] LABS: LDL Cholesterol 138 mg/dL (< 100)
[2023-08-21 20:28] LABS: HDL Cholesterol 58 mg/dL (40-59)
[2023-08-21 20:29] LABS: Alanine Aminotransferase 12 U/L (7-40); Albumin 4.4 g/dL (3.2-4.8); Alkaline Phosphatase 99 U/L (46-116); Anion Gap 9 (5-15); Aspartate Aminotransferase 17 U/L (13-40); BUN/Creatinine Ratio 11.9 (10.0-20.0); Blood Urea Nitrogen 7 mg/dL (9-23); Calcium 9.4 mg/dL (8.5-10.1); Carbon Dioxide 24 mmol/L (20-30); Chloride 106 mmol/L (98-107); Cholesterol 214 mg/dL (< 200); Glucose 100 mg/dL (74-106); Potassium 3.8 mmol/L (3.5-5.1); Sodium 139 mmol/L (136-145)
[2023-08-21 20:30] LABS: Bilirubin, Total 0.4 mg/dL (0.2-1.0); Total Protein 6.8 g/dL (5.7-8.2)
[2023-08-21] MEDS: SODIUM CHLORIDE 0.9% 1,000 ML IV SCH (20:59)
[2023-08-21] MEDS: MORPHINE SULFATE INJ 2 MG/ml SYRG IV PRN (21:00)
[2023-08-21] MEDS: PRAVASTATIN SODIUM 20 MG TAB PO SCH (22:05)
[2023-08-21] MEDS: PANTOPRAZOLE 40 MG TAB PO SCH (22:05)
[2023-08-21 23:19] LABS: Urine Bacteria None Seen /hpf (None Seen)
[2023-08-21 23:52] LABS: Urine Blood 3+ /uL (Negative); Urine Clarity Clear (Clear); Urine Color Yellow (Yellow); Urine Mucus FEW (None Seen); Urine Protein, UAD TRACE (Negative); Urine Specific Gravity 1.025 (1.001-1.035); Urine Urobilinogen Normal (Negative); Urine WBC 8 /hpf (0 - 5); Urine pH 5.5 (5.0-9.0)
[2023-08-21] MEDS: cefTRIAXone 1GM/50ML D5W 50 ML IV ONE (23:59)
[2023-08-22 00:30] VITALS: PULSE 71; RESP 20; O2SAT 91
[2023-08-22] MEDS: HYDROcodone-ACET 5/325MG TAB PO PRN (04:30)
[2023-08-22 05:43] LABS: Chloride 107 mmol/L (98-107); Sodium 136 mmol/L (136-145)
[2023-08-22 05:44] LABS: Anion Gap 7 (5-15); Carbon Dioxide 22 mmol/L (20-30)
[2023-08-22 05:45] LABS: Calcium 8.9 mg/dL (8.7-10.4)
[2023-08-22 05:49] LABS: Glucose 113 mg/dL (74-106)
[2023-08-22 05:50] LABS: BUN/Creatinine Ratio 8.1 (10.0-20.0); Blood Urea Nitrogen < 5 mg/dL (9-23)
[2023-08-22 06:52] LABS: Basophils # (auto) 0 10 ^3/uL (0-0.2); Basophils % (auto) 0.5 % (0.0-2.0); Eosinophils # (auto) 0.4 10 ^3/uL (0-0.8); Eosinophils % (auto) 4.1 % (0.0-7.0); Hematocrit 34.9 % (36.0-46.0); Hemoglobin 11.3 g/dL (12.2-16.2); Lymphocytes % (auto) 11.8 % (10.0-50.0); Mean Corpuscular Hemoglobin 24.7 pg (28.0-32.0); Mean Corpuscular Hgb Conc. 32.5 g/dL (32.0-36.0); Mean Corpuscular Volume 76.1 fL (80.0-100.0); Monocytes # (auto) 0.9 10 ^3/uL (0-1.3); Monocytes % (auto) 9.8 % (0.0-12.0); Neutrophils # (auto) 6.4 10 ^3/uL (1.6-8.6); Neutrophils % (auto) 73.8 % (37.0-80.0); Nucleated Red Blood Cells % 0.1 %; Red Blood Cells 4.58 10^6/uL (4.0-5.20); Red Cell Distribution Width 19.4 % (11.8-14.3); White Blood Cell 8.7 10^3/uL (4.4-10.8)
[2023-08-22] MEDS: ROPINIROLE HCL 4 MG PO SCH (10:00)
[2023-08-22] MEDS: GABAPENTIN 100 MG CAP PO SCH (11:20)
[2023-08-22] MEDS: FLUoxetine HCL 20 MG CAP PO SCH (11:20)
[2023-08-22] MEDS: LISINOPRIL 5 MG TAB PO SCH (11:21)
[2023-08-22] MEDS: ONDANSETRON HCL 4 MG/2 ML VIAL ONE (15:00)
[2023-08-22] MEDS ORDERED: ONDANSETRON HCL 4 MG/2 ML VIAL IV PRN (15:00)
[2023-08-22] MEDS: diphenhdrAMINE HCL 50 MG/1 ML VL IV ONE (18:37)
[2023-08-22 18:41] VITALS: BP 117/52; PULSE 67; RESP 14; TEMP 98.1; O2SAT 95
[2023-08-22 20:00] VITALS: PULSE 72; RESP 16; O2SAT 96
[2023-08-22 21:00] VITALS: BP 111/46; PULSE 72; RESP 16; TEMP 98.7; O2SAT 96
[2023-08-22] MEDS: cefTRIAXone 1GM/50ML D5W 50 ML IV SCH (21:23)
[2023-08-22] MEDS: HYDROmorphone HCL 2 MG/ML VL/or syr IV PRN (23:53)
[2023-08-23] VITALS (11 sets, daily range): BP systolic 115–127; BP diastolic 41–59; PULSE 68–79; RESP 15–19; TEMP 97.5–100.1; O2SAT 94–98
[2023-08-23 06:59] LABS: Basophils # (auto) 0.1 10 ^3/uL (0-0.2); Basophils % (auto) 0.5 % (0.0-2.0); Eosinophils # (auto) 0.5 10 ^3/uL (0-0.8); Monocytes # (auto) 0.9 10 ^3/uL (0-1.3)
[2023-08-23 07:01] LABS: Eosinophils % (auto) 4.6 % (0.0-7.0); Hemoglobin 11.6 g/dL (12.2-16.2); Lymphocytes # (auto) 0.8 10 ^3/uL (0.4-5.4); Lymphocytes % (auto) 8.3 % (10.0-50.0); Mean Corpuscular Hemoglobin 24.5 pg (28.0-32.0); Mean Corpuscular Hgb Conc. 32.1 g/dL (32.0-36.0); Mean Corpuscular Volume 76.4 fL (80.0-100.0); Monocytes % (auto) 9.2 % (0.0-12.0); Neutrophils # (auto) 7.9 10 ^3/uL (1.6-8.6); Neutrophils % (auto) 77.4 % (37.0-80.0); Red Blood Cells 4.71 10^6/uL (4.0-5.20); Red Cell Distribution Width 19.3 % (11.8-14.3); White Blood Cell 10.2 10^3/uL (4.4-10.8)
[2023-08-23 07:19] LABS: Alanine Aminotransferase < 9 U/L (7-40); Alkaline Phosphatase 93 U/L (46-116); Anion Gap 5 (5-15); BUN/Creatinine Ratio 13.6 (10.0-20.0); Blood Urea Nitrogen 11 mg/dL (9-23); Calcium 8.9 mg/dL (8.5-10.1); Carbon Dioxide 27 mmol/L (20-30); Chloride 106 mmol/L (98-107); Glucose 114 mg/dL (74-106); Potassium 4.3 mmol/L (3.5-5.1); Sodium 138 mmol/L (136-145)
[2023-08-23 07:20] LABS: Aspartate Aminotransferase 14 U/L (13-40); Bilirubin, Total 0.4 mg/dL (0.2-1.0); Total Protein 6.5 g/dL (5.7-8.2)
[2023-08-23] MEDS: ACETAMINOPHEN 325 MG TAB PO PRN (08:36)
[2023-08-23] MEDS: ACETAMINOPHEN 325 MG TAB PO ONE (10:30)
[2023-08-23] MEDS ORDERED: fentaNYL CITRATE 100 MCG/2 ML VL ONE (11:40)
[2023-08-23] MEDS ORDERED: PROPOFOL 10 MG/ML 20 ML IV ONE (11:40)
[2023-08-23] MEDS: ceFAZolin 2 GM/D5W50ml 50 ML IV ONE (11:47)
[2023-08-23] MEDS: CLINDAMYCIN 600MG IV 50 ML IV ONE (11:51)
[2023-08-23] MEDS: ROPIVACAINE 0.5% (5MG/ML) 20ML AMPULE IJ ONE (12:42)
[2023-08-23] MEDS: SODIUM CHLOR 0.9% PF (SALINE LOCK) 10ML VIAL/SYR IV SCH (14:00)
[2023-08-23] MEDS: HYDROcodone-ACET 10/325MG TAB PO PRN (18:25)
[2023-08-23] MEDS: LACTATED RINGER'S 1,000 ML IV SCH (23:00)
[2023-08-24] VITALS (11 sets, daily range): BP systolic 106–121; BP diastolic 45–63; PULSE 71–96; RESP 16–20; TEMP 98–98.7; O2SAT 93–100
[2023-08-24] MEDS: HYDROcodone-ACET 5/325MG TAB PO ONE (01:11)
[2023-08-24 06:55] LABS: Basophils # (auto) 0 10 ^3/uL (0-0.2); Eosinophils # (auto) 0.5 10 ^3/uL (0-0.8); Eosinophils % (auto) 5.1 % (0.0-7.0); Hemoglobin 10.1 g/dL (12.2-16.2)
[2023-08-24 06:57] LABS: Basophils % (auto) 0.5 % (0.0-2.0); Hematocrit 30.8 % (36.0-46.0); Lymphocytes # (auto) 0.9 10 ^3/uL (0.4-5.4); Lymphocytes % (auto) 9.6 % (10.0-50.0); Mean Corpuscular Hemoglobin 25.1 pg (28.0-32.0); Mean Corpuscular Hgb Conc. 32.9 g/dL (32.0-36.0); Mean Corpuscular Volume 76.4 fL (80.0-100.0); Monocytes % (auto) 10.9 % (0.0-12.0); Neutrophils # (auto) 6.7 10 ^3/uL (1.6-8.6); Neutrophils % (auto) 73.9 % (37.0-80.0); Red Blood Cells 4.04 10^6/uL (4.0-5.20); Red Cell Distribution Width 19.3 % (11.8-14.3); White Blood Cell 9.1 10^3/uL (4.4-10.8)
[2023-08-24 07:00] LABS: Anion Gap 3 (5-15); Carbon Dioxide 28 mmol/L (20-30); Chloride 105 mmol/L (98-107); Potassium 4.1 mmol/L (3.5-5.1); Sodium 136 mmol/L (136-145)
[2023-08-24 07:01] LABS: Calcium 8.5 mg/dL (8.7-10.4)
[2023-08-24 07:06] LABS: BUN/Creatinine Ratio 16.2 (10.0-20.0); Blood Urea Nitrogen 11 mg/dL (9-23); Glucose 109 mg/dL (74-106)
[2023-08-24] MEDS: APIXABAN 2.5 MG TAB PO SCH (09:46)
[2023-08-24] MEDS: IPRATROPIUM BROM 0.5 MG/2.5ML INH SOL NEB PRN (10:35)
[2023-08-24] MEDS: ALBUTEROL SULF 2.5 MG/0.5ML(0.5%) NEB SOLN ONE (10:35)
[2023-08-24] MEDS: IPRATROPIUM BROM 0.5 MG/2.5ML INH SOL ONE (10:35)
[2023-08-24] MEDS: ALBUTEROL SULF 2.5 MG/0.5ML(0.5%) NEB SOLN NEB PRN (10:35)
[2023-08-24] MEDS: diphenhdrAMINE HCL 25 MG CAP PO PRN (11:06)
[2023-08-25] VITALS (13 sets, daily range): BP systolic 106–135; BP diastolic 37–61; PULSE 74–88; RESP 16–20; TEMP 97.5–98.7; O2SAT 93–100
[2023-08-25 06:41] LABS: Basophils # (auto) 0 10 ^3/uL (0-0.2); Eosinophils # (auto) 0.4 10 ^3/uL (0-0.8); Hematocrit 30.2 % (36.0-46.0); Hemoglobin 9.6 g/dL (12.2-16.2); Lymphocytes # (auto) 0.7 10 ^3/uL (0.4-5.4); Lymphocytes % (auto) 7.8 % (10.0-50.0); White Blood Cell 9.2 10^3/uL (4.4-10.8)
[2023-08-25 06:44] LABS: Basophils % (auto) 0.2 % (0.0-2.0); Eosinophils % (auto) 4.8 % (0.0-7.0); Mean Corpuscular Hemoglobin 24.3 pg (28.0-32.0); Mean Corpuscular Hgb Conc. 31.8 g/dL (32.0-36.0); Mean Corpuscular Volume 76.5 fL (80.0-100.0); Monocytes % (auto) 11.2 % (0.0-12.0); Red Blood Cells 3.95 10^6/uL (4.0-5.20); Red Cell Distribution Width 19.3 % (11.8-14.3)
[2023-08-25 07:08] LABS: Alanine Aminotransferase 15 U/L (7-40); Albumin 3.3 g/dL (3.2-4.8); Alkaline Phosphatase 85 U/L (46-116); Anion Gap 3 (5-15); Aspartate Aminotransferase 24 U/L (13-40); BUN/Creatinine Ratio 16.7 (10.0-20.0); Blood Urea Nitrogen 11 mg/dL (9-23); Calcium 8.5 mg/dL (8.5-10.1); Carbon Dioxide 28 mmol/L (20-30); Chloride 104 mmol/L (98-107); Glucose 113 mg/dL (74-106); Potassium 4.2 mmol/L (3.5-5.1); Sodium 135 mmol/L (136-145)
[2023-08-25 07:09] LABS: Bilirubin, Total 0.3 mg/dL (0.2-1.0); Total Protein 5.5 g/dL (5.7-8.2)
[2023-08-26] VITALS (9 sets, daily range): BP systolic 129–160; BP diastolic 43–63; PULSE 74–89; RESP 17–20; TEMP 98.2–98.7; O2SAT 90–100
[2023-08-26] MEDS: LACTULOSE 20Gm/30ML SOLN PO PRN (20:13)
[2023-08-27] VITALS (9 sets, daily range): BP systolic 115–145; BP diastolic 47–68; PULSE 61–92; RESP 17–22; TEMP 36.6; O2SAT 90–98
[2023-08-27] MEDS ORDERED: FLEET ENEMA(ADULT) 135 ML PR ONE (14:00)
== END 2023-08-27 18:00 | DRG 481 ==
LOC: ER 14:36 → OVERFLOW 19:23 → WEST WING 08-22 17:37
PROVIDERS: ADMIT Internal Medicine; ATTEND Internal Medicine
PROC: 0QS734Z Reposition Left Upper Femur with Internal Fixation Device, Percutaneous Approach (ICD-10-PCS; principal; 2023-08-23 11:58)
DX: S72.012A Unspecified intracapsular fracture of left femur, initial encounter for closed fracture (principal); I50.32 Chronic diastolic (congestive) heart failure; I11.0 Hypertensive heart disease with heart failure; F41.9 Anxiety disorder, unspecified; F32.A Depression, unspecified; E66.9 Obesity, unspecified; F17.210 Nicotine dependence, cigarettes, uncomplicated; E78.5 Hyperlipidemia, unspecified; W01.0XXA Fall on same level from slipping, tripping and stumbling without subsequent striking against object, initial encounter; J45.909 Unspecified asthma, uncomplicated; Z88.0 Allergy status to penicillin; Z91.041 Radiographic dye allergy status; Z86.711 Personal history of pulmonary embolism; Z90.49 Acquired absence of other specified parts of digestive tract; Z90.710 Acquired absence of both cervix and uterus; Z83.3 Family history of diabetes mellitus; Z82.5 Family history of asthma and other chronic lower respiratory diseases; Z82.49 Family history of ischemic heart disease and other diseases of the circulatory system; Z79.01 Long term (current) use of anticoagulants; Y93.89 Activity, other specified; Y92.89 Other specified places as the place of occurrence of the external cause; Y99.8 Other external cause status; Z86.718 Personal history of other venous thrombosis and embolism; Z68.32 Body mass index [BMI] 32.0-32.9, adult
CPT/HCPCS: 36415; 70450; 71045; 72192; 73030; 73502; 76000; 80048; 80053; 80061; 81001; 85025; 85610; 86850; 86900; 86901; 87040; 87081; 87086; 93005; 94640; 96365; 96375; 97110; 97116; 97530; G0378; J2405; J2704; J3490

== ENCOUNTER → 2023-10-05 | Outpatient (CLI) | payer OTHER ==
[2023-10-05 15:15] LABS: Basophils # (auto) 0.1 10 ^3/uL (0-0.2); Eosinophils # (auto) 0.2 10 ^3/uL (0-0.8); Eosinophils % (auto) 2.5 % (0.0-7.0); Hematocrit 38.3 % (36.0-46.0); Hemoglobin 12.3 g/dL (12.2-16.2); Lymphocytes # (auto) 1.4 10 ^3/uL (0.4-5.4); Lymphocytes % (auto) 21.1 % (10.0-50.0); Mean Corpuscular Hemoglobin 24.3 pg (28.0-32.0); Mean Corpuscular Hgb Conc. 32.2 g/dL (32.0-36.0); Mean Corpuscular Volume 75.5 fL (80.0-100.0); Monocytes # (auto) 0.8 10 ^3/uL (0-1.3); Monocytes % (auto) 12.5 % (0.0-12.0); Neutrophils # (auto) 4.2 10 ^3/uL (1.6-8.6); Neutrophils % (auto) 62.9 % (37.0-80.0); Nucleated Red Blood Cells % 0.1 %; Red Blood Cells 5.07 10^6/uL (4.0-5.20); White Blood Cell 6.6 10^3/uL (4.4-10.8)
[2023-10-05 16:16] LABS: Alanine Aminotransferase 12 U/L (7-40); Albumin 4.1 g/dL (3.2-4.8); Alkaline Phosphatase 96 U/L (46-116); Anion Gap 6 (5-15); Aspartate Aminotransferase < 8 U/L (13-40); BUN/Creatinine Ratio 14.5 (10.0-20.0); Blood Urea Nitrogen 10 mg/dL (9-23); Calcium 9.6 mg/dL (8.7-10.4); Carbon Dioxide 27 mmol/L (20-30); Chloride 105 mmol/L (98-107); Glucose 95 mg/dL (74-106); Potassium 4.9 mmol/L (3.5-5.1); Sodium 138 mmol/L (136-145)
[2023-10-05 16:17] LABS: Bilirubin, Total 0.3 mg/dL (0.2-1.0); Total Protein 6.7 g/dL (5.7-8.2)
== END | disposition home or self-care (01) ==
LOC: LAB 14:52
PROVIDERS: ATTEND Internal Medicine
DX: I10 Essential (primary) hypertension (principal); R06.02 Shortness of breath; E78.5 Hyperlipidemia, unspecified; B35.4 Tinea corporis
CPT/HCPCS: 36415; 80053; 85025; 85379

== ENCOUNTER 2023-10-10 11:16 | Inpatient (IN) | payer OTHER ==
[~2023-10-10] VITALS: Ht 154.9 cm; Wt 66.7 kg
[2023-10-10 13:52] LABS: Eosinophils # (auto) 0.1 10 ^3/uL (0-0.8); Hemoglobin 12.6 g/dL (12.2-16.2); Monocytes # (auto) 0.5 10 ^3/uL (0-1.3); White Blood Cell 6.6 10^3/uL (4.4-10.8)
[2023-10-10 13:54] LABS: Basophils # (auto) 0.1 10 ^3/uL (0-0.2); Basophils % (auto) 0.9 % (0.0-2.0); Eosinophils % (auto) 1.9 % (0.0-7.0); Hematocrit 38.1 % (36.0-46.0); Lymphocytes # (auto) 0.9 10 ^3/uL (0.4-5.4); Lymphocytes % (auto) 14.2 % (10.0-50.0); Mean Corpuscular Hemoglobin 24.8 pg (28.0-32.0); Mean Corpuscular Volume 75.1 fL (80.0-100.0); Monocytes % (auto) 8.3 % (0.0-12.0); Neutrophils # (auto) 4.9 10 ^3/uL (1.6-8.6); Neutrophils % (auto) 74.7 % (37.0-80.0); Red Blood Cells 5.07 10^6/uL (4.0-5.20)
[2023-10-10 14:05] LABS: Chloride 106 mmol/L (98-107); Potassium 4.1 mmol/L (3.5-5.1); Sodium 138 mmol/L (136-145)
[2023-10-10 14:06] LABS: Anion Gap 9 (5-15); Calcium 9.6 mg/dL (8.7-10.4); Carbon Dioxide 23 mmol/L (20-30)
[2023-10-10 14:11] LABS: BUN/Creatinine Ratio 13.8 (10.0-20.0); Blood Urea Nitrogen 8 mg/dL (9-23); Glucose 130 mg/dL (74-106); Red Cell Distribution Width 20.6 % (11.8-14.3)
[2023-10-10] MEDS: SODIUM CHLORIDE 0.9% 1,000 ML IV ONE (15:30)
[2023-10-10] MEDS ORDERED: DOCUSATE SOD 100 MG CAP PO PRN (15:30)
[2023-10-10] MEDS ORDERED: NITROGLYCERIN 0.4 MG SL TAB SL PRN (15:30)
[2023-10-10] MEDS ORDERED: MORPHINE SULFATE INJ 2 MG/ml SYRG IV PRN ×2 (15:30)
[2023-10-10] MEDS ORDERED: ERGOCALCIFEROL 50,000 UNIT(1.25MG) CAP PO SCH (15:30)
[2023-10-11] VITALS (7 sets, daily range): BP systolic 119–132; BP diastolic 42–60; PULSE 77–93; RESP 13–18; TEMP 97.3–98.1; O2SAT 94–100
[2023-10-11 00:20] LABS: Urine Bacteria FEW /hpf (None Seen); Urine Blood Negative /uL (Negative); Urine Clarity Turbid (Clear); Urine Color Yellow (Yellow); Urine Mucus MODERATE (None Seen); Urine Protein, UAD 1+ (Negative); Urine Specific Gravity 1.035 (1.001-1.035); Urine Urobilinogen Normal (Negative); Urine WBC 132 /hpf (0 - 5); Urine pH 5.5 (5.0-9.0)
[2023-10-11] MEDS: SODIUM CHLORIDE 0.9% 1,000 ML IV ONE (00:24)
[2023-10-11] MEDS: PANTOPRAZOLE 40 MG TAB PO SCH (00:25)
[2023-10-11] MEDS: APIXABAN 5 MG TAB PO SCH (00:25)
[2023-10-11] MEDS: PRAVASTATIN SODIUM 20 MG TAB PO SCH (00:25)
[2023-10-11] MEDS: ONDANSETRON HCL 4 MG/2 ML VIAL IV PRN (00:25)
[2023-10-11] MEDS ORDERED: TORS10TA12 PO (03:50)
[2023-10-11] MEDS ORDERED: POTA-228 PO (03:50)
[2023-10-11 07:11] LABS: Alanine Aminotransferase 12 U/L (7-40); Albumin 3.7 g/dL (3.2-4.8); Alkaline Phosphatase 82 U/L (46-116); Anion Gap 6 (5-15); Aspartate Aminotransferase 9 U/L (13-40); BUN/Creatinine Ratio 15.5 (10.0-20.0); Bilirubin, Total 0.5 mg/dL (0.2-1.0); Blood Urea Nitrogen 9 mg/dL (9-23); Calcium 8.9 mg/dL (8.7-10.4); Carbon Dioxide 26 mmol/L (20-30); Chloride 108 mmol/L (98-107); Glucose 104 mg/dL (74-106); Potassium 3.8 mmol/L (3.5-5.1); Sodium 140 mmol/L (136-145); Total Protein 5.8 g/dL (5.7-8.2)
[2023-10-11 07:20] LABS: Basophils # (auto) 0 10 ^3/uL (0-0.2); Basophils % (auto) 0.8 % (0.0-2.0); Eosinophils # (auto) 0.2 10 ^3/uL (0-0.8); Eosinophils % (auto) 2.9 % (0.0-7.0); Hematocrit 33.5 % (36.0-46.0); Lymphocytes # (auto) 1.4 10 ^3/uL (0.4-5.4); Mean Corpuscular Hemoglobin 24.5 pg (28.0-32.0); Mean Corpuscular Hgb Conc. 32.8 g/dL (32.0-36.0); Mean Corpuscular Volume 74.7 fL (80.0-100.0); Monocytes # (auto) 0.6 10 ^3/uL (0-1.3); Monocytes % (auto) 10.5 % (0.0-12.0); Neutrophils # (auto) 3.4 10 ^3/uL (1.6-8.6); Neutrophils % (auto) 60.8 % (37.0-80.0); Nucleated Red Blood Cells % 0.1 %; Red Blood Cells 4.48 10^6/uL (4.0-5.20); Red Cell Distribution Width 19.7 % (11.8-14.3); White Blood Cell 5.6 10^3/uL (4.4-10.8)
[2023-10-11 07:56] LABS: Amphetamine Screen, Urine Neg (NEGATIVE); Barbiturate Scree,Urine Neg (NEGATIVE); Benzodiazephine Screen, Urine Neg (NEGATIVE); Cocaine Screen, Urine Neg (NEGATIVE)
[2023-10-11 07:57] LABS: Cannabinoid Screen, Urine Neg (NEGATIVE); Opiate Scree,Urine Neg (NEGATIVE); Phencyclidine Screen, Urine Neg (NEGATIVE)
[2023-10-11] MEDS: ROPINIROLE HYDROCHLORIDE 4 MG PO SCH (10:00)
[2023-10-11] MEDS: FLUoxetine HCL 20 MG CAP PO SCH (10:53)
[2023-10-11] MEDS: LISINOPRIL 5 MG TAB PO SCH (10:53)
[2023-10-11] MEDS: ERGOCALCIFEROL 50,000 UNIT(1.25MG) CAP PO SCH (12:21)
[2023-10-11] MEDS: CYANOCOBALAMIN 500 MCG TAB PO ONE (12:21)
[2023-10-11] MEDS ORDERED: CYAN500T3 PO (13:33)
[2023-10-12] MEDS ORDERED: CYANOCOBALAMIN 500 MCG TAB PO SCH (10:00)
== END 2023-10-11 20:24 | disposition home health service (06) | DRG 640 ==
LOC: ER 11:16 → OVERFLOW 15:21 → WEST WING 10-11 02:44
PROVIDERS: ADMIT Internal Medicine; ATTEND Internal Medicine
DX: E86.0 Dehydration (principal); G93.41 Metabolic encephalopathy; F17.210 Nicotine dependence, cigarettes, uncomplicated; F41.9 Anxiety disorder, unspecified; J45.909 Unspecified asthma, uncomplicated; F32.A Depression, unspecified; E78.5 Hyperlipidemia, unspecified; I10 Essential (primary) hypertension; E55.9 Vitamin D deficiency, unspecified; E53.8 Deficiency of other specified B group vitamins; G25.81 Restless legs syndrome; G47.00 Insomnia, unspecified; Z88.0 Allergy status to penicillin; Z91.041 Radiographic dye allergy status; Z90.710 Acquired absence of both cervix and uterus; Z90.49 Acquired absence of other specified parts of digestive tract; Z82.49 Family history of ischemic heart disease and other diseases of the circulatory system; Z83.3 Family history of diabetes mellitus; Z86.73 Personal history of transient ischemic attack (TIA), and cerebral infarction without residual deficits; Z79.01 Long term (current) use of anticoagulants; Z86.711 Personal history of pulmonary embolism
CPT/HCPCS: 36415; 70450; 71045; 80048; 80053; 80307; 81001; 82306; 82607; 83036; 84443; 84484; 85025; 93005; 97163; G0378; J2405

== ENCOUNTER 2024-05-31 13:02 | Emergency (ER) | payer OTHER ==
[~2024-05-31] VITALS: Ht 154.9 cm; Wt 76.4 kg
[~2024-05-31 13:02] MED LIST changes: -AZIT-43 PO; -CIPR-173 PO; +CYAN500T3 PO; +TORS10TA12 PO
--- NOTE | 2024-05-31 14:04 | DVH ---
CLINICAL INDICATION: fall/injury TECHNIQUE: XY L WRIST 3+ VIEW XRAY Comparison: R WRIST COMPLETE XRAY on DOS: 03/01/22 FINDINGS/IMPRESSION: : Comminuted fracture of the distal radius which is intra-articular in nature. Ulna appears intact. Ca rpal bones appear intact Soft tissues are unremarkable.
--- NOTE | 2024-05-31 14:07 | DVH ---
CLINICAL INDICATION: fall/injury TECHNIQUE: 3 radiographic views of the left hand were obtained. Comparison: None FINDINGS/IMPRESSION: Fracture of the distal radius. No other fractures visualized The visualized joint space is well maintained. The alignment is anatomical. 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
--- NOTE | 2024-05-31 14:21 | DVH ---
EXAM: CT HEAD WITHOUT CONTRAST INDICATION: fall/injury TECHNIQUE: CT of the head without intravenous contrast. Radiation Dose Information: CT Dose: CTDI volume is 48.74 mGy. Dose-length product is 781.56 mGy*cm The dose indicators for CT are the volume Computed Tomography (CT) Dose Index (CTDIvol) and the Dose Length Product (DLP), and are measured in units of mGy and mGy-cm, respectively. These indicators are not patient dose, but values generated from the CT scanner acquisition factors. The report includes radiation exposure data for exposures received during this examination. COMPARISON: CT HEAD WITHOUT CONTRAST on DOS: 10/10/23, CT HEAD WITHOUT CONTRAST on DOS: 08/21/23, CT [facility] CTH on DOS: 07/31/23 FINDINGS: There is no evidence of acute intracranial hemorrhage, extra-axial collection, mass effect, midline s hift, herniation or hydrocephalus. The ventricles, sulci and cisterns are age appropriate. The cervantes-white differentiation is intact. Patchy periventricular and subcortical white matter hypoattenuation is nonspecific but may be related to small vessel ischemic disease. The visualized paranasal sinuses and mastoid air cells are clear. The surrounding soft tissues and osseous structures are unremarkable. IMPRESSION: 1. No acute intracranial hemorrhage 2. No CT findings of territorial ischemia. 3. No CT findings of displaced skull fracture
--- NOTE | 2024-05-31 14:24 | DVH ---
EXAM: CT CERVICAL WITHOUT CONTRAST INDICATION: fall/injury EXAM DATE: 05/31/2024 01:53 PM COMPARISON: None TECHNIQUE: Multiple axial CT images of the cervical spine were obtained using bone algorithm. Axial a nd coronal reformatting was done. Bone and soft tissue windows were reviewed. Radiation Dose Information: CT Dose: CTDI volume is 21.69 mGy. Dose-length product is 467.37 mGy*cm FINDINGS: The cervical alignment is intact. No acute cervical spine fracture is identified. The vertebral body heights are intact. No suspicious osseous lesions are identified. No significant degenerative changes are identified. There is no prevertebral soft tissue swelling. IMPRESSION: 1. No evidence of acute cervical spine fracture or traumatic malalignment. 2. Straightening of the normal cervical lordotic curve. This may be secondary to patient positioning or muscle spasm. All CT scans at this medical facility are performed using dose modulation techniques as appropriate t o a performed exam including the following: Automated exposure control was utilized; adjustment of th e MA and/or KV according to patient size; and use of iterative reconstruction technique.
--- NOTE | 2024-05-31 14:26 | DVH ---
HISTORY: fall/injury TECHNIQUE: Nonenhanced axial images through the facial bones with coronal and sagittal MPR. Radiation Dose Information: CT Dose: CTDI volume is 64.82 mGy. Dose-length product is 1189.92 mGy*cm COMPARISON: None FINDINGS: Mandible: Unremarkable Maxilla: Unremarkable Zygomatic arches: Unremarkable Nasal bone: Unremarkable Orbits: Unremarkable Sinuses: Clear Facial swelling: None IMPRESSION: 1. No acute facial fractures. Radiation optimization: All CT scans at this facility use at least one of these dose optimization zaid hniques: automated exposure control mA and/or kV adjustment per patient size (includes targeted exam s where dose is matched to clinical indication) or iterative reconstruction.
[2024-05-31 14:33] VITALS: PULSE 86; RESP 18; O2SAT 94
[2024-05-31 14:38] LABS: Basophils # (auto) 0.1 10 ^3/uL (0-0.2); Eosinophils # (auto) 0.3 10 ^3/uL (0-0.8); Hemoglobin 11.7 g/dL (12.2-16.2); Neutrophils % (auto) 69.1 % (37.0-80.0)
[2024-05-31 14:40] LABS: Eosinophils % (auto) 3.7 % (0.0-7.0); Hematocrit 35.8 % (36.0-46.0); Lymphocytes # (auto) 1.2 10 ^3/uL (0.4-5.4); Lymphocytes % (auto) 16.9 % (10.0-50.0); Mean Corpuscular Hgb Conc. 32.7 g/dL (32.0-36.0); Mean Corpuscular Volume 76.6 fL (80.0-100.0); Monocytes # (auto) 0.7 10 ^3/uL (0-1.3); Monocytes % (auto) 9.3 % (0.0-12.0); Neutrophils # (auto) 5.1 10 ^3/uL (1.6-8.6); Platelet Count (auto) 321 10^3/uL (140-450); Red Blood Cells 4.67 10^6/uL (4.0-5.20); Red Cell Distribution Width 20.4 % (11.8-14.3); White Blood Cell 7.3 10^3/uL (4.4-10.8)
[2024-05-31 15:02] LABS: Alanine Aminotransferase 15 U/L (7-40); Albumin 4.3 g/dL (3.2-4.8); Alkaline Phosphatase 86 U/L (46-116); Anion Gap 9 (5-15); Aspartate Aminotransferase 16 U/L (13-40); BUN/Creatinine Ratio 14.5 (10.0-20.0); Calcium 9.9 mg/dL (8.7-10.4); Carbon Dioxide 28 mmol/L (20-31); Chloride 105 mmol/L (98-107); Creatine Kinase IFCC 123 U/L (34-145); Lipase 34 U/L (12-53); Potassium 3.8 mmol/L (3.5-5.1); Sodium 142 mmol/L (136-145); Total Protein 6.2 g/dL (5.7-8.2)
--- NOTE | 2024-05-31 15:17 | ED.PDOC ---
Musculoskeletal HPI Comments HPI: 78-year-old female presents with a chief complaint of wrist pain and hand swelling x 3 days ago. Patient states that she was on a cruise ship and had a mechanical fall and landed on her left wrist and nose. Patient reports that she was seen and evaluated on the cruise ship by the ship's doctor, had x-rays taken, and was told she had a fracture to her left wrist. Patient was splinted on the ship by the doctor. Patient is now presenting with increased wrist pain and swelling to her fingers. Patients fingers have noticeable swelling and discoloration. Patient denies LOC from the fall. Patient is on Eliquis for her PEs but was advised by the ship's doctor to stop taking them, patient mentions s he has not had any Eliquis for 4 days. No other symptoms or modifying factors present at this time. Patient stopped her anticoagulation on Sunday and is supposed to restarted today Past Medical History: PE's, HTN, HLD, DEPRESSION, RESTLESS LEG SYNDROME, HEARING DIFFICULTY, TIA, ANXIETY, ASTHMA Past Surgical History: HIP SURGERY, HYSTERECTOMY, TONSILLECTOMY Social History: CIGARETTES, ALCOHOL Medications: ELIQUIS Allergies: IV CONTRAST, IODINE, PENICILLINS, POVIDONE IODINE REVIEW OF SYSTEMS: CONSTITUTIONAL: Denies acute: fever, diaphoresis, chills, generalized weakness. HEAD: Denies acute: headache, photophobia Eyes: Denies acute: Double vision, vision loss, eye pain, eye discharge. EARS: Denies acute: tinnitus, hearing loss, ear discharge, ear pain, THROAT: Denies acute: sore throat, swelling, difficulty swallowing , pain with swallowing, change in voice. NECK: Denies acute: neck pain, neck swelling, stiff neck. HEART: Denies acute : chest pain, palpitations, LUNGS: Denies acute: SOB, wheezing, cough, hemoptysis ABDOMEN: Denies acute: abdominal pain, Nausea, Vomiting, diarrhea, melena , hematemesis, hematochezia SKIN: Denies acute: rash, redness, lesions, itchiness. EXTREMITIES: Denies acute: calf pain, numbness, tingling, weakness, Denies acute: Low back pain. Neuro: Denies acute: focal neurological deficit, motor or sensory focal neurological de ficit, tremors, seizure like activity, confusion, dizziness, change in mental status, loss of bowel or bladder function, cauda equina like symptoms. : Denies acute: dysuria, hematuria, flank pain, increase in urinary frequency. PSYCH: Denies acute: hallucination, suicidal ideation, homicidal ideation. FEMALE: Denies acute: abnormal vaginal bleeding, foul odor, unusual discharge. PHYSICAL EXAM: General: no acute distress, awake and alert. Head: normocephalic, atraumatic. Noted minimal nasal bridge contusion. Neck: supple, trachea is midline, no swelling. Cervical spine: Palpation of the posterior midline of the cervical spine reveals no focal swelling, erythema, focal tenderness to palpation. Patient has normal range of motion. Throat: Normal phonation. Eyes:, no erythema, no purulent discharge, no proptosis, no icterus. Heart: regular rate, regular rhythm, no significant murmur appreciated. Lungs: no apparent respiratory distress, Able to speak in full sentences. No wheezing, no rhonchi, no crackles. No stridors Clear to auscultation bilaterally. Abdomen: non tender to palpation, non distended, soft, no guarding, no rebound, + bowel sounds. Neuro: Awake, Alert, oriented to name, self, situation, follows commands GCS=15. Speech is normal. Skin: no petechia, no purpura, no cyanosis, non-pale, not jaundice. Lower extremities: --2/4- Pitting edema no deformity, no focal swelling, no calf TTP. Evaluation of the left wrist: There is a noted cast in place. Noted bruising/contusion over dorsal side of her fingers. Noted pitting edema in the left hand 2/4. I suspected that the wrapping of the cast was too tight. We unwrapped it. Patient is neurovascularly intact in the affected extremity. Radial pulses palpable. Good capillary refill. Sensory and motor are present. Patient felt relief after the Coban and wrapping was removed. I instructed the techs to rewrap it loosely to comfort. Left upper extremity: Patient has normal left shoulder range of motion. Makes eye contact. moves all four extremities. Face: no apparent facial droop. Ambulating in the ED independently. No nuchal rigidity, Kernig's sign, Brudzinski's sign, no meningeal signs. ED COURSE: Chief Complaint: Fall Injury Time Seen by MD: 14:42 Primary Care Provider: CECI Reviewed Notes: Nurses Notes, Medications, Allergies Allergies: Coded Allergies: Iodine (Verified Allergy, Unknown, 05/31/24) Penicillins (Verified Allergy, Unknown, 01/09/21) Povidone Iodine (Verified Allergy, Unknown, 01/09/21) Uncoded Allergies: BANDAGES (Allergy, Unknown, 05/31/24) IV DYE (Allergy, Unknown, 01/12/22) Home Meds Active Scripts Cyanocobalamin (Gnp Vitamin B12) 500 Mcg Tab, 1000 MCG PO DAILY for 30 Days, #60 TAB Prov:RICKI MARTÍNEZ 10/11/23 Apixaban Base (ELIQUIS) 5 Mg Tab, 5 MG PO BID for 30 Days, #60 TAB 2 Refills Prov:LAURA FLORES MD 03/13/23 Reported Medications Torsemide (Torsemide) 10 Mg Tab, 10 MG PO DAILY for edema, MG 10/11/23 Pravastatin Sodium (PRAVACHOL TABLET) 20 Mg Tb, 1 TAB PO HS 08/01/23 Ergocalciferol (Vitamin D) 50,000 Unit Cap, 1 CAP PO QWEEKLY 08/01/23 Gabapentin (Gabapentin) 100 Mg Cap, 1 CAP PO DAILY 07/31/23 Fluoxetine Hcl (Fluoxetine Hcl) 40 Mg Cap, 1 CAP PO DAILY 07/31/23 Lisinopril (Lisinopril) 5 Mg Tab, 5 MG PO DAILY, TAB 03/12/23 Ropinirole Hydrochloride (Ropinirole Hcl) 4 Mg Tab, 4 MG PO DAILY, TAB 07/09/20 Pantoprazole Sodium Sesquihydr (Protonix) 40 Mg Tab, 40 MG PO BID, #30 TAB 07/09/20 Information Source: Patient Mode of Arrival: Ambulatory Past Medical History PAST MEDICAL HISTORY: Anxiety, Asthma, Depression, High Lipids, HTN, PE, TIA Surgical History: Appendectomy, Hysterectomy, Tonsillectomy CLOUD CONSULTANT History: No Pertinent CLOUD CONSULTANT History Family History Family History: Family hx of DM, Family hx of heart mili Social History Smoker: Cigarettes, Less Than 1 Pack/Day Alcohol: Occasionally Drugs: Denies Drug Use Lives In: Home Was a procedure done? Was a procedure done?: No Differential Diagnosis EXT Differential Diagnosis: Cellulitis, CHF, Deep Vein Thrombosis, Compartment Syndrome, Sprain, Dislocation, Laceration, Gout, DJD, Myocardial Infarction, Contusion, Strain, Rheumatoid, Septic, Hernia, Neurovascular injury, Arthritis, Bursitis X-Ray, Labs, Meds, VS Vital Signs Date Time Temp Pulse Resp B/P (MAP) Pulse Ox O2 Delivery O2 Flow Rate FiO2 05/31/24 17:50 98.0 67 18 142/67 (92) 98 98.0 05/31/24 17:24 159/74 05/31/24 16:50 98.1 72 20 159/74 (102) 95 98.1 05/31/24 14:33 86 18 94 Room Air* 0 21 05/31/24 14:32 98.4 86 18 114/72 (86) 94 98.4 05/31/24 13:20 98.6 89 18 163/59 (93) 98 Lab Test 05/31/24 16:46 05/31/24 15:54 05/31/24 14:26 05/31/24 14:24 Range/Units Lactic Acid Level 1.1 2.5 *H 0.4-2.0 mmol/L Troponin I High Sensitivity 3 L 3 L </=34 ng/L White Blood Count 7.3 4.4-10.8 10^3/uL Red Blood Count 4.67 4.0-5.20 10^6/uL Hemoglobin 11.7 L 12.2-16.2 g/dL Hematocrit 35.8 L 36.0-46.0 % Mean Corpuscular Volume 76.6 L 80.0-100.0 fL Mean Corpuscular Hemoglobin 25.0 L 28.0-32.0 pg Mean Corpuscular Hemoglobin Concent 32.7 32.0-36.0 g/dL Red Cell Distribution Width 20.4 H 11.8-14.3 % Platelet Count 321 140-450 10^3/uL Mean Platelet Volume 9.3 6.9-10.8 fL Neutrophils (%) (Auto) 69.1 37.0-80.0 % Lymphocytes (%) (Auto) 16.9 10.0-50.0 % Monocytes (%) (Auto) 9.3 0.0-12.0 % Eosinophils (%) (Auto) 3.7 0.0-7.0 % Basophils (%) (Auto) 1.0 0.0-2.0 % Neutrophils # (Auto) 5.1 1.6-8.6 10 ^3/uL Lymphocytes # (Auto) 1.2 0.4-5.4 10 ^3/uL Monocytes # (Auto) 0.7 0-1.3 10 ^3/uL Eosinophils # (Auto) 0.3 0-0.8 10 ^3/uL Basophils # (Auto) 0.1 0-0.2 10 ^3/uL Nucleated Red Blood Cells 0.0 % Sodium Level 142 136-145 mmol/L Potassium Level 3.8 3.5-5.1 mmol/L Chloride Level 105 98-107 mmol/L Carbon Dioxide Level 28 20-31 mmol/L Anion Gap 9 5-15 Blood Urea Nitrogen 9 9-23 mg/dL Creatinine 0.62 0.550-1.02 mg/dL Glomerular Filtration Rate Calc 91 >90 mL/min BUN/Creatinine Ratio 14.5 10.0-20.0 Serum Glucose 109 H 74-106 mg/dL Calcium Level 9.9 8.7-10.4 mg/dL Total Bilirubin 0.2 0.2-1.0 mg/dL Aspartate Amino Transferase (AST) 16 13-40 U/L Alanine Aminotransferase (ALT) 15 7-40 U/L Alkaline Phosphatase 86 46-116 U/L Creatine Kinase 123 34-145 U/L B-Type Natriuretic Peptide 35.95 0-100 pg/mL Total Protein 6.2 5.7-8.2 g/dL Albumin 4.3 3.2-4.8 g/dL Lipase 34 12-53 U/L Current Medications Medications (Trade) Dose Ordered Sig/Gabi Route Start Time Stop Time Status Last Admin Furosemide (Lasix Tablet) 20 mg ONCE ONCE PO 05/31/24 17:15 05/31/24 17:16 DC 05/31/24 17:[address] [address] Ph: [phone] DIAGNOSTIC IMAGING Diagnostic Imaging Report : [id number] Signed PATIENT: NALLELY BRADY ACCT: [id number] UNIT: [id number] : 1945 LOC: ER ROOM / BED: / AGE / SEX: 78 / F ADM STATUS: REG ER SERVICE 36 ORDERING PHYSICIAN: JUSTIN COBOS DO PROCEDURE(s): LWRI - L WRIST 3+ VIEW XRAY REASON: fall/injury ORDER NUMBER(s): [id number], ACCESSION NUMBER(s): [id number] CLINICAL INDICATION: fall/injury TECHNIQUE: XY L WRIST 3+ VIEW XRAY Comparison: R WRIST COMPLETE XRAY on DOS: 03/01/22 FINDINGS/IMPRESSION: : Comminuted fracture of the distal radius which is intra-articular in nature. Ulna appears intact. Carpal bones appear intact Soft tissues are unremarkable. ATED BY: ROSEANNA ROGERS MD DICTATED DATE/TIME: 05/31/241401 SIGNED BY: ROSEANNA ROGERS MD SIGNED DATE/TIME: 05/31/241401 [place] [address] Ph: [phone] DIAGNOSTIC IMAGING Diagnostic Imaging Report : [id number] Signed PATIENT: NALLELY BRADY ACCT: [id number] UNIT: [id number] : 1945 LOC: ER ROOM / BED: / AGE / SEX: 78 / F ADM STATUS: REG ER SERVICE 36 ORDERING PHYSICIAN: JUSTIN COBOS DO PROCEDURE(s): FAC2C - MAXILLOFACIAL WITHOUT REASON: fall/injury ORDER NUMBER(s): [id number], ACCESSION NUMBER(s): [id number] HISTORY: fall/injury TECHNIQUE: Nonenhanced axial images through the facial bones with coronal and sagittal MPR. Radiation Dose Information: CT Dose: CTDI volume is 64.82 mGy. Dose-length product is 1189.92 mGy*cm COMPARISON: None FINDINGS: Mandible: Unremarkable Maxilla: Unremarkable Zygomatic arches: Unremarkable Nasal bone: Unremarkable Orbits: Unremarkable Sinuses: Clear Facial swelling: None IMPRESSION: 1. No acute facial fractures. Radiation optimization: All CT scans at this facility use at least one of these dose optimization techniques: automated exposure control mA and/or kV adjustment per patient size (includes targeted exams where dose is matched to clinical indication) or iterative reconstruction. ATED BY: ROSEANNA ROGERS MD DICTATED DATE/TIME: 05/31/241422 SIGNED BY: ROSEANNA ROGERS MD SIGNED DATE/TIME: 05/31/2414[address] [address] Ph: [phone] DIAGNOSTIC IMAGING Diagnostic Imaging Report : [id number] Signed PATIENT: NALLELY BRADY ACCT: [id number] UNIT: [id number] : 1945 LOC: ER ROOM / BED: / AGE / SEX: 78 / F ADM STATUS: REG ER SERVICE 36 ORDERING PHYSICIAN: JUSTIN COBOS DO PROCEDURE(s): HWOCT - HEAD WITHOUT CONTRAST REASON: fall/injury ORDER NUMBER(s): [id number], ACCESSION NUMBER(s): [id number] EXAM: CT HEAD WITHOUT CONTRAST INDICATION: fall/injury TECHNIQUE: CT of the head without intravenous contrast. Radiation Dose Information: CT Dose: CTDI volume is 48.74 mGy. Dose-length product is 781.56 mGy*cm The dose indicators for CT are the volume Computed Tomography (CT) Dose Index (CTDIvol) and the Dose Length Product (DLP), and are measured in units of mGy and mGy-cm, respectively. These indicators are not patient dose, but values generated from the CT scanner acquisition factors. The report includes radiation exposure data for exposures received during this examination. COMPARISON: CT HEAD WITHOUT CONTRAST on DOS: 10/10/23, CT HEAD WITHOUT CONTRAST on DOS: 08/21/23, CT [facility] CTH on DOS: 07/31/23 FINDINGS: There is no evidence of acute intracranial hemorrhage, extra-axial collection, mass effect, midline shift, herniation or hydrocephalus. The ventricles, sulci and cisterns are age appropriate. The cervantes-white differentiation is intact. Patchy periventricular and subcortical white matter hypoattenuation is nonspecific but may be related to small vessel ischemic disease. The visualized paranasal sinuses and mastoid air cells are clear. The surrounding soft tissues and osseous structures are unremarkable. IMPRESSION: 1. No acute intracranial hemorrhage 2. No CT findings of territorial ischemia. 3. No CT findings of displaced skull fracture ATED BY: ROSEANNA HAMILTON Jr., DO DICTATED DATE/TIME: 05/31/241417 SIGNED BY: ROSEANNA HAMILTON Jr., DO SIGNED DATE/TIME: 05/31/24 [facility] [place] [address] Ph: [phone] DIAGNOSTIC IMAGING Diagnostic Imaging Report : [id number] Signed PATIENT: NALLELY BRADY ACCT: [id number] UNIT: [id number] : 1945 LOC: ER ROOM / BED: / AGE / SEX: 78 / F ADM STATUS: REG ER SERVICE 36 ORDERING PHYSICIAN: JUSTIN COBOS DO PROCEDURE(s): LHAN - L HAND 3V XRAY REASON: fall/injury ORDER NUMBER(s): [id number], ACCESSION NUMBER(s): [id number] CLINICAL INDICATION: fall/injury TECHNIQUE: 3 radiographic views of the left hand were obtained. Comparison: None FINDINGS/IMPRESSION: Fracture of the distal radius. No other fractures visualized The visualized joint space is well maintained. The alignment is anatomical. 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 ATED BY: ROSEANNA ROGERS MD DICTATED DATE/TIME: 05/31/241404 SIGNED BY: ROSEANNA ROGERS MD SIGNED DATE/TIME: 05/31/[address] [place] [address] Ph: [phone] DIAGNOSTIC IMAGING Diagnostic Imaging Report : [id number] Signed PATIENT: NALLELY BRADY ACCT: [id number] UNIT: [id number] : 1945 LOC: ER ROOM / BED: / AGE / SEX: 78 / F ADM STATUS: REG ER SERVICE 36 ORDERING PHYSICIAN: JUSTIN COBOS DO PROCEDURE(s): CS2 - CERVICAL WITHOUT CONTRAST REASON: fall/injury ORDER NUMBER(s): [id number], ACCESSION NUMBER(s): [id number] EXAM: CT CERVICAL WITHOUT CONTRAST INDICATION: fall/injury EXAM DATE: 05/31/2024 01:53 PM COMPARISON: None TECHNIQUE: Multiple axial CT images of the cervical spine were obtained using bone algorithm. Axial and coronal reformatting was done. Bone and soft tissue windows were reviewed. Radiation Dose Information: CT Dose: CTDI volume is 21.69 mGy. Dose-length product is 467.37 mGy*cm FINDINGS: The cervical alignment is intact. No acute cervical spine fracture is identified. The vertebral body heights are intact. No suspicious osseous lesions are identified. No significant degenerative changes are identified. There is no prevertebral soft tissue swelling. IMPRESSION: 1. No evidence of acute cervical spine fracture or traumatic malalignment. 2. Straightening of the normal cervical lordotic curve. This may be secondary to patient positioning or muscle spasm. All CT scans at this medical facility are performed using dose modulation techniques as appropriate to a performed exam including the following: Automated exposure control was utilized; adjustment of the MA and/or KV according to patient size; and use of iterative reconstruction technique. ATED BY: ROSEANNA HAMILTON Jr., DO DICTATED DATE/TIME: 05/31/241420 SIGNED BY: ROSEANNA HAMILTON Jr., SIGNED DATE/TIME: 05/31/241420 Time of 1ST Reevaluation: 15:12 Reevaluation 1ST: Unchanged Time of 2ND Reevaluation: 19:18 Reevaluation 2ND: Improved Patient Education/Counseling: Diagnosis, Treatment Family Education/Counseling: Other Comments Patient presented with the above HPI.--fall and closed head injury----workup was initiated. patient was found with the above mentioned diagnosis. the following medications were ordered: please refer to order lists of meds and tests obtained by myself Dr. Cobos. Patient ED course and VS have been stabilized. Patient has been reassessed in the ED and remained in a stable condition. Pertinent incidental findings were discussed with the patient and/or family. Patient/family voices understanding and is agreeable with plan. Patient has been observed in the ED adequate length of time to insure improvement/stability. Escalation of care considered: Consideration of escalation to observation or admission The splint/cast was re-evaluated. It was loose in the little bit due to patient having excessive pain in that area. patient is neurovascularly intact in the affected extremity. Patient requesting to be discharged home. Patient was DISCHARGED home in a stable condition. All the reports of any imaging studies that were ordered by myself were reviewed by myself. Departure 1 Departure Time of Disposition: 17:04 Impression: Primary Impression: Left wrist fracture Additional Impressions: Fall Closed head injury Disposition: HOME / SELF CARE / HOMELESS Condition: Stable Additional Instructions: Additional discharge instructions: You MUST follow-up with your primary care/family doctor in 1 to 2 days. If you are unable to see your primary care/family doctor, please return to our emergency room for re-assessment and re-evaluation in 1 to 2 days. Return to the emergency room here in our facility or to the nearest ER [facility] if your symptoms change or worsen. CONSULTATIONS: you MUST Follow-up for consultation as soon as possible with: orthopedic doctor in 1-2 days. Please call for appointment. You MUST call the consultants office yourself to make an appointment. You may need to arrange that through your insurance and/or your primary/family doctor. If you are unable to see the workforce consultant in 1 to 2 days, you must return to our emergency room (or any other ER of your choice) for re-assessment and re- evaluation. Adequate fluid hydration. Please follow up with the hot plate plywood press laborer and wind farm support specialist regarding your use of anticoagulation. Return for reassessment in 12-24 hours to check your arm again. Below is a copy of your radiological report for follow up: [place] [address] Ph: [phone] DIAGNOSTIC IMAGING Diagnostic Imaging Report : [id number] Signed PATIENT: NALLELY BRADY ACCT: [id number] UNIT: [id number] : 1945 LOC: ER ROOM / BED: / AGE / SEX: 78 / F ADM STATUS: REG ER SERVICE 1337 ORDERING PHYSICIAN: JUSTIN COBOS DO PROCEDURE(s): LWRI - L WRIST 3+ VIEW XRAY REASON: fall/injury ORDER NUMBER(s): [id number], ACCESSION NUMBER(s): [id number] CLINICAL INDICATION: fall/injury TECHNIQUE: XY L WRIST 3+ VIEW XRAY Comparison: R WRIST COMPLETE XRAY on DOS: 03/01/22 FINDINGS/IMPRESSION: : Comminuted fracture of the distal radius which is intra-articular in nature. Ulna appears intact. Carpal bones appear intact Soft tissues are unremarkable. ATED BY: ROSEANNA ROGERS MD DICTATED DATE/TIME: 05/31/241401 SIGNED BY: ROSEANNA ROGERS MD SIGNED DATE/TIME: 05/31/241401 [place] [address] Ph: [phone] DIAGNOSTIC IMAGING Diagnostic Imaging Report : [id number] Signed PATIENT: NALLELY BRADY ACCT: [id number] UNIT: [id number] : 1945 LOC: ER ROOM / BED: / AGE / SEX: 78 / F ADM STATUS: REG ER SERVICE 36 ORDERING PHYSICIAN: JUSTIN COBOS DO PROCEDURE(s): FAC2C - MAXILLOFACIAL WITHOUT REASON: fall/injury ORDER NUMBER(s): [id number], ACCESSION NUMBER(s): [id number] HISTORY: fall/injury TECHNIQUE: Nonenhanced axial images through the facial bones with coronal and sagittal MPR. Radiation Dose Information: CT Dose: CTDI volume is 64.82 mGy. Dose-length product is 1189.92 mGy*cm COMPARISON: None FINDINGS: Mandible: Unremarkable Maxilla: Unremarkable Zygomatic arches: Unremarkable Nasal bone: Unremarkable Orbits: Unremarkable Sinuses: Clear Facial swelling: None IMPRESSION: 1. No acute facial fractures. Radiation optimization: All CT scans at this facility use at least one of these dose optimization techniques: automated exposure control mA and/or kV adjustment per patient size (includes targeted exams where dose is matched to clinical indication) or iterative reconstruction. ATED BY: ROSEANNA ROGERS MD DICTATED DATE/TIME: 05/31/241422 SIGNED BY: ORSEANNA ROGERS MD SIGNED DATE/TIME: 05/31/2414[address] [address] Ph: [phone] DIAGNOSTIC IMAGING Diagnostic Imaging Report : [id number] Signed PATIENT: NALLELY BRADY ACCT: [id number] UNIT: [id number] : 1945 LOC: ER ROOM / BED: / AGE / SEX: 78 / F ADM STATUS: REG ER SERVICE 1337 ORDERING PHYSICIAN: JUSTIN COBOS DO PROCEDURE(s): HWOCT - HEAD WITHOUT CONTRAST REASON: fall/injury ORDER NUMBER(s): [id number], ACCESSION NUMBER(s): [id number] EXAM: CT HEAD WITHOUT CONTRAST INDICATION: fall/injury TECHNIQUE: CT of the head without intravenous contrast. Radiation Dose Information: CT Dose: CTDI volume is 48.74 mGy. Dose-length product is 781.56 mGy*cm The dose indicators for CT are the volume Computed Tomography (CT) Dose Index (CTDIvol) and the Dose Length Product (DLP), and are measured in units of mGy and mGy-cm, respectively. These indicators are not patient dose, but values generated from the CT scanner acquisition factors. The report includes radiation exposure data for exposures received during this examination. COMPARISON: CT HEAD WITHOUT CONTRAST on DOS: 10/10/23, CT HEAD WITHOUT CONTRAST on DOS: 08/21/23, CT [facility] CTH on DOS: 07/31/23 FINDINGS: There is no evidence of acute intracranial hemorrhage, extra-axial collection, mass effect, midline shift, herniation or hydrocephalus. The ventricles, sulci and cisterns are age appropriate. The cervantes-white differentiation is intact. Patchy periventricular and subcortical white matter hypoattenuation is nonspecific but may be related to small vessel ischemic disease. The visualized paranasal sinuses and mastoid air cells are clear. The surrounding soft tissues and osseous structures are unremarkable. IMPRESSION: 1. No acute intracranial hemorrhage 2. No CT findings of territorial ischemia. 3. No CT findings of displaced skull fracture ATED BY: ROSEANNA HAMILTON Jr., DO DICTATED DATE/TIME: 05/31/241417 SIGNED BY: ROSEANNA HAMILTON Jr., DO SIGNED DATE/TIME: 05/31/241417 [place] [address] Ph: [phone] DIAGNOSTIC IMAGING Diagnostic Imaging Report : [id number] Signed PATIENT: NALLELY BRADY ACCT: [id number] UNIT: [id number] : 1945 LOC: ER ROOM / BED: / AGE / SEX: 78 / F ADM STATUS: REG ER SERVICE 36 ORDERING PHYSICIAN: JUSTIN COBOS DO PROCEDURE(s): LHAN - L HAND 3V XRAY REASON: fall/injury ORDER NUMBER(s): [id number], ACCESSION NUMBER(s): [id number] CLINICAL INDICATION: fall/injury TECHNIQUE: 3 radiographic views of the left hand were obtained. Comparison: None FINDINGS/IMPRESSION: Fracture of the distal radius. No other fractures visualized The visualized joint space is well maintained. The alignment is anatomical. 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 ATED BY: ROSEANNA ROGERS MD DICTATED DATE/TIME: 05/31/241404 SIGNED BY: ROSEANNA ROGERS MD SIGNED DATE/TIME: 05/31/241404 [place] [address] Ph: [phone] DIAGNOSTIC IMAGING Diagnostic Imaging Report : [id number] Signed PATIENT: NALLELY BRADY ACCT: [id number] UNIT: [id number] : 1945 LOC: ER ROOM / BED: / AGE / SEX: 78 / F ADM STATUS: REG ER SERVICE 36 ORDERING PHYSICIAN: JUSTIN COBOS DO PROCEDURE(s): CS2 - CERVICAL WITHOUT CONTRAST REASON: fall/injury ORDER NUMBER(s): [id number], ACCESSION NUMBER(s): [id number] EXAM: CT CERVICAL WITHOUT CONTRAST INDICATION: fall/injury EXAM DATE: 05/31/2024 01:53 PM COMPARISON: None TECHNIQUE: Multiple axial CT images of the cervical spine were obtained using bone algorithm. Axial and coronal reformatting was done. Bone and soft tissue windows were reviewed. Radiation Dose Information: CT Dose: CTDI volume is 21.69 mGy. Dose-length product is 467.37 mGy*cm FINDINGS: The cervical alignment is intact. No acute cervical spine fracture is identified. The vertebral body heights are intact. No suspicious osseous lesions are identified. No significant degenerative changes are identified. There is no prevertebral soft tissue swelling. IMPRESSION: 1. No evidence of acute cervical spine fracture or traumatic malalignment. 2. Straightening of the normal cervical lordotic curve. This may be secondary to patient positioning or muscle spasm. All CT scans at this medical facility are performed using dose modulation techniques as appropriate to a performed exam including the following: Automated exposure control was utilized; adjustment of the MA and/or KV according to patient size; and use of iterative reconstruction technique. ATED BY: ROSEANNA HAMILTON Jr., DO DICTATED DATE/TIME: 05/31/24 142 SIGNED BY: ROSEANNA HAMILTON Jr., SIGNED DATE/TIME: 05/31/24 142 Discharged With: Self Critical Care Note Critical Care Time?: No I personally scribed for JUSTIN COBOS DO ([email or web address]) on 05/31/24 at 15:17. Electronically submitted by Barry Pleitez ([email or web address]). JUSTIN COBOS DO May 31, 2024 15:17
[2024-05-31 15:20] LABS: Bilirubin, Total 0.2 mg/dL (0.2-1.0); Blood Urea Nitrogen 9 mg/dL (9-23); Glucose 109 mg/dL (74-106)
[2024-05-31 15:22] LABS: Lactic Acid w/Reflex 2.5 mmol/L (0.4-2.0)
[2024-05-31] MEDS ORDERED: FUROSEMIDE 20 MG/2 ML VIAL IV ONE (15:30)
[2024-05-31] MEDS: FUROSEMIDE 20 MG TAB PO ONE (17:24)
[2024-05-31 17:50] VITALS: BP 142/67; PULSE 67; RESP 18; TEMP 98; O2SAT 98
== END 2024-05-31 18:24 | disposition home or self-care (01) ==
LOC: ER 13:02
DX: S52.592A Other fractures of lower end of left radius, initial encounter for closed fracture (principal); S09.8XXA Other specified injuries of head, initial encounter; I10 Essential (primary) hypertension; F41.9 Anxiety disorder, unspecified; E78.5 Hyperlipidemia, unspecified; F17.210 Nicotine dependence, cigarettes, uncomplicated; F32.A Depression, unspecified; G25.81 Restless legs syndrome; J45.909 Unspecified asthma, uncomplicated; R06.02 Shortness of breath; Z79.899 Other long term (current) drug therapy; Z86.73 Personal history of transient ischemic attack (TIA), and cerebral infarction without residual deficits; Z90.49 Acquired absence of other specified parts of digestive tract; Z90.710 Acquired absence of both cervix and uterus; Z91.041 Radiographic dye allergy status; Z88.0 Allergy status to penicillin; Z88.8 Allergy status to other drugs, medicaments and biological substances; W18.39XA Other fall on same level, initial encounter; Y93.89 Activity, other specified; Y92.89 Other specified places as the place of occurrence of the external cause; Y99.8 Other external cause status
CPT/HCPCS: 29125; 36415; 70450; 70486; 72125; 73110; 73130; 80053; 82550; 83605; 83690; 83880; 84484; 85025

== ENCOUNTER 2024-06-08 00:42 | Inpatient (IN) | payer OTHER ==
[~2024-06-08] VITALS: Ht 154.9 cm; Wt 72.6 kg
[2024-06-08 01:20] LABS: Basophils # (auto) 0.1 10 ^3/uL (0-0.2); Eosinophils # (auto) 0.2 10 ^3/uL (0-0.8); Eosinophils % (auto) 3.1 % (0.0-7.0); Neutrophils # (auto) 4.4 10 ^3/uL (1.6-8.6); Nucleated Red Blood Cells % 0.1 %; White Blood Cell 7.5 10^3/uL (4.4-10.8)
[2024-06-08 01:22] LABS: Basophils % (auto) 0.9 % (0.0-2.0); Hemoglobin 12.7 g/dL (12.2-16.2); Lymphocytes # (auto) 1.8 10 ^3/uL (0.4-5.4); Lymphocytes % (auto) 24.5 % (10.0-50.0); Mean Corpuscular Hemoglobin 25.3 pg (28.0-32.0); Mean Corpuscular Hgb Conc. 32.4 g/dL (32.0-36.0); Mean Corpuscular Volume 77.8 fL (80.0-100.0); Monocytes # (auto) 0.9 10 ^3/uL (0-1.3); Monocytes % (auto) 12.4 % (0.0-12.0); Neutrophils % (auto) 59.1 % (37.0-80.0); Platelet Count (auto) 349 10^3/uL (140-450); Red Blood Cells 5.01 10^6/uL (4.0-5.20)
[2024-06-08 01:23] LABS: Red Cell Distribution Width 20.1 % (11.8-14.3)
[2024-06-08 01:35] LABS: Alanine Aminotransferase 12 U/L (7-40); Albumin 4.7 g/dL (3.2-4.8); Alkaline Phosphatase 95 U/L (46-116); Anion Gap 7 (5-15); Aspartate Aminotransferase 12 U/L (13-40); Blood Urea Nitrogen 17 mg/dL (9-23); Calcium 9.7 mg/dL (8.7-10.4); Carbon Dioxide 26 mmol/L (20-31); Chloride 104 mmol/L (98-107); Glucose 100 mg/dL (74-106); Sodium 137 mmol/L (136-145); Total Protein 7.3 g/dL (5.7-8.2)
[2024-06-08 01:38] LABS: Bilirubin, Total 0.3 mg/dL (0.2-1.0)
--- NOTE | 2024-06-08 01:49 | DVH ---
CHEST RADIOGRAPH Indication: cp Technique: Single frontal view of the chest was obtained COMPARISON: XY CHEST PORTABLE on DOS: 10/10/23, XY CHEST PORTABLE on DOS: 08/21/23, XY CHEST PORTABLE o n DOS: 07/31/23, XY CHEST PORTABLE on DOS: 03/12/23, XY CHEST PORTABLE on DOS: 01/09/23 FINDINGS: Lines and Tubes: None Lungs: Clear Pleura: No effusion. No pneumothorax. Cardiomediastinal contours: Unremarkable Bones: Unremarkable IMPRESSION: 1. No acute disease.
--- NOTE | 2024-06-08 01:59 | ED.PDOC ---
HPI Comments 78-year-old female came to emergency room due to chest pain. Patient has history of hypertension, dyslipidemia, congestive heart failure, multiple PEs, currently on Eliquis. 45 minutes prior to arrival she developed sudden onset left sided chest pains, pressure, radiating to the neck, 6/10 intensity, associated dizziness in the worsening bipedal edema. Denies any shortness of breath Chief Complaint: Chest Pain Time Seen by MD: 01:58 Primary Care Provider: CECI Reviewed Notes: [employer] Room Attendant Notes Allergies: Coded Allergies: Iodine (Verified Allergy, Unknown, 05/31/24) Penicillins (Verified Allergy, Unknown, 01/09/21) Povidone Iodine (Verified Allergy, Unknown, 01/09/21) Uncoded Allergies: BANDAGES (Allergy, Unknown, 05/31/24) IV DYE (Allergy, Unknown, 01/12/22) Home Meds Active Scripts Cyanocobalamin (Gnp Vitamin B12) 500 Mcg Tab, 1000 MCG PO DAILY for 30 Days, #60 TAB Prov:RICKI MARTÍNEZ 10/11/23 Apixaban Base (ELIQUIS) 5 Mg Tab, 5 MG PO BID for 30 Days, #60 TAB 2 Refills Prov:LAURA FLORES MD 03/13/23 Reported Medications Torsemide (Torsemide) 10 Mg Tab, 10 MG PO DAILY for edema, MG 10/11/23 Pravastatin Sodium (PRAVACHOL TABLET) 20 Mg Tb, 1 TAB PO HS 08/01/23 Ergocalciferol (Vitamin D) 50,000 Unit Cap, 1 CAP PO QWEEKLY 08/01/23 Gabapentin (Gabapentin) 100 Mg Cap, 1 CAP PO DAILY 07/31/23 Fluoxetine Hcl (Fluoxetine Hcl) 40 Mg Cap, 1 CAP PO DAILY 07/31/23 Lisinopril (Lisinopril) 5 Mg Tab, 5 MG PO DAILY, TAB 03/12/23 Ropinirole Hydrochloride (Ropinirole Hcl) 4 Mg Tab, 4 MG PO DAILY, TAB 07/09/20 Pantoprazole Sodium Sesquihydr (Protonix) 40 Mg Tab, 40 MG PO BID, #30 TAB 07/09/20 Information Source: Patient, Emergency Med Personnel Mode of Arrival: EMS Severity: Moderate Timing: Minutes Review of Systems REVIEW OF SYSTEMS: No fever, no chills, or fatigue HEENT: No sore throat, no earache, no congestion, no neck pain. Cardiac: (+) chest pain. No palpitations. Lungs: No shortness of breath, no cough. GI: No nausea, no vomiting, no diarrhea, no constipation, no abdominal pain : No dysuria, frequency, or urgency. No hematuria. Musculoskeletal: No joint pain , no joint swelling, no extremity edema. Skin: No rash, no itching. Neuro: No headache, no dizziness, no weakness Vital Signs Vital Signs Date Time Temp Pulse Resp B/P (MAP) Pulse Ox O2 Delivery O2 Flow Rate FiO2 06/08/24 01:59 72 06/08/24 00:45 98.0 16 169/76 (107) 98 98.0 Physical Exam General: Awake, alert and oriented. No acute distress. Skin: Skin in warm, dry and intact. Appropriate color for ethnicity. Nailbeds pink with no cyanosis. HEENT: The head is normocephalic and atraumatic. Conjunctivae are clear without exudates or hemorrhage. Sclera is non-icteric. EOM are intact. No signs of n ystagmus. Eyelids are normal in appearance without swelling or lesions. Oral mucosa is pink and moist Neck: The neck is supple with normal range of motion. No JVD. Cardiac: Heart rate and rhythm are normal. No murmurs, gallops, or rubs are auscultated. Respiratory: No signs of respiratory distress. Lung sounds are clear in all lobes bilaterally without rales, ronchi, or wheezes. Abdominal: Abdomen is soft, non-tender without distention. Bowel sounds are present and normoactive in all four quadrants. Extremities: Upper and lower extremities are atraumatic in appearance without deformity or edema. Neurological: The patient is awake, alert and oriented to person, place, and time with normal speech. Speech is clear. There is no facial asymmetry. Psychiatric: Appropriate mood and affect. Good judgement and insight. No visual or auditory hallucinations. Past Medical History PAST MEDICAL HISTORY: Anxiety, Asthma, CHF, Depression, High Lipids, HTN, PE, TIA Surgical History: Appendectomy, Hysterectomy, Tonsillectomy Surgical History (Other): Left forearm fracture PROGRAM SCHEDULER History: No Pertinent PROGRAM SCHEDULER History Family History Family History: Family hx of DM, Family hx of heart mili Social History Smoker: Cigarettes, Less Than 1 Pack/Day Alcohol: Occasionally Drugs: Denies Drug Use Lives In: Home EKG EKG : Pulse Rate (adult): 72 Cardiac Rhythm: NSR Was a procedure done? Was a procedure done?: No CP Differential Dx Differential Diagnosis: Angina, Anxiety / Panic Attack, Hyperventilation, Hypoxia, Pulmonary Embolus Differential Diagnosis: Angina, Chest Wall Pain, Costochondritis, Esophageal reflux/spasm, Gastritis, Myocardial Infarction X-Ray, Labs, Meds, VS Vital Signs Date Time Temp Pulse Resp B/P (MAP) Pulse Ox O2 Delivery O2 Flow Rate FiO2 06/08/24 01:59 72 06/08/24 00:52 72 06/08/24 00:45 98.0 76 16 169/76 (107) 98 98.0 Lab Test 06/08/24 02:11 06/08/24 01:04 Range/Units Troponin I High Sensitivity Pending 3 L </=34 ng/L White Blood Count 7.5 4.4-10.8 10^3/uL Red Blood Count 5.01 4.0-5.20 10^6/uL Hemoglobin 12.7 12.2-16.2 g/dL Hematocrit 39.0 36.0-46.0 % Mean Corpuscular Volume 77.8 L 80.0-100.0 fL Mean Corpuscular Hemoglobin 25.3 L 28.0-32.0 pg Mean Corpuscular Hemoglobin Concent 32.4 32.0-36.0 g/dL Red Cell Distribution Width 20.1 H 11.8-14.3 % Platelet Count 349 140-450 10^3/uL Mean Platelet Volume 8.8 6.9-10.8 fL Neutrophils (%) (Auto) 59.1 37.0-80.0 % Lymphocytes (%) (Auto) 24.5 10.0-50.0 % Monocytes (%) (Auto) 12.4 H 0.0-12.0 % Eosinophils (%) (Auto) 3.1 0.0-7.0 % Basophils (%) (Auto) 0.9 0.0-2.0 % Neutrophils # (Auto) 4.4 1.6-8.6 10 ^3/uL Lymphocytes # (Auto) 1.8 0.4-5.4 10 ^3/uL Monocytes # (Auto) 0.9 0-1.3 10 ^3/uL Eosinophils # (Auto) 0.2 0-0.8 10 ^3/uL Basophils # (Auto) 0.1 0-0.2 10 ^3/uL Nucleated Red Blood Cells 0.1 % Platelet Estimate Pending D-Dimer, Quantitative 0.52 H 0.0-0.49 mg/L FEU Sodium Level 137 136-145 mmol/L Potassium Level 4.0 3.5-5.1 mmol/L Chloride Level 104 98-107 mmol/L Carbon Dioxide Level 26 20-31 mmol/L Anion Gap 7 5-15 Blood Urea Nitrogen 17 9-23 mg/dL Creatinine 0.74 0.550-1.02 mg/dL Glomerular Filtration Rate Calc 83 >90 mL/min BUN/Creatinine Ratio 23.0 H 10.0-20.0 Serum Glucose 100 74-106 mg/dL Calcium Level 9.7 8.7-10.4 mg/dL Total Bilirubin 0.3 0.2-1.0 mg/dL Aspartate Amino Transferase (AST) 12 L 13-40 U/L Alanine Aminotransferase (ALT) 12 7-40 U/L Alkaline Phosphatase 95 46-116 U/L B-Type Natriuretic Peptide 10.56 0-100 pg/mL Total Protein 7.3 5.7-8.2 g/dL Albumin 4.7 3.2-4.8 g/dL Time of 1ST Reevaluation: 01:53 Reevaluation 1ST: Unchanged Patient Education/Counseling: Diagnosis, Treatment Family Education/Counseling: No Family Present Departure 1 Departure Time of Disposition: 02:41 Impression: Primary Impression: Chest pain Disposition: 09 ADMITTED INPATIENT Condition: Stable Comments 78-year-old female with ongoing chest pain. Initial troponin and EKG negative. Extensive evaluation was performed in attempt to identify or rule out: (See differential diagnosis section) The following tests were ordered, and results were reviewed by me: (See diagnostic results section) The following test were independently interpreted by me: N/A I reviewed and agreed with the following test results read by other providers: N/A I reviewed the following notes from the pt's past medical encounters: (None available at this time) Additional information was gathered from interviewing the following independent historians: N/A Discussion of management or test interpretation with external physician/other qualified health animal caretaker: N/A Addressed [ ]one or more chronic illnesses with severe exacerbation, progression, or side effects of treatment: [ ]an acute or chronic illness that poses a threat to life or bodily function: [ ] Decision regarding hospitalization or escalation of hospital level of care: Risk and benefits of admission for further treatment of patient's condition was considered. Due to patient's current clinical condition, high risk of decline and poor outcome if discharged and need for further inpatient management and monitoring, patient will be admitted to the hospital. Drug therapy requiring intensive monitoring for toxicity: N/A Parenteral controlled substances: N/A Decision regarding elective major surgery with identified patient or procedure risk factors: N/A Decision regarding emergency major surgery: N/A Decision not to resuscitate or to de-escalate care because of poor prognosis: N/A Diagnosis or treatment significantly limited by social determinants of health: N/A Decision regarding hospitalization or escalation of hospital level of care: Risks and benefits of admission for further treatment of patient's condition was considered however due to patient's stable condition patient will be discharged to follow up closely or return to care for worsening of condition or inability to follow up. Critical Care Note Critical Care Time?: Yes (35 min-critical care time only) Critical care comment: Active chest pains Stability Stability form required: No Heart Score Heart Score: Heart Score Response (Comments) Value History Moderate Suspicious 1 EKG Normal 0 Age >65 2 Risk Factors >3 or Hx ASHD 2 Troponin Normal limit 0 Total 5 I personally scribed for CELESTINA GONZALEZ MD ([email or web address]) on 06/08/24 at 01:59. Electronically submitted by Oswaldo Del Valle ([email or web address]). CELESTINA GONZALEZ MD Jun 08, 2024 01:59
[2024-06-08 02:57] LABS: Anisocytosis Slight; Platelet Estimate Adequate
--- NOTE | 2024-06-08 06:22 | ECG ---
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
[2024-06-08 06:32] VITALS: PULSE 78; RESP 18; O2SAT 97
[2024-06-08 07:30] VITALS: PULSE 79; O2SAT 95
--- NOTE | 2024-06-08 07:42 | ECG ---
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
[2024-06-08 08:27] LABS: Urine Bacteria FEW /hpf (None Seen); Urine Blood Negative /uL (Negative); Urine Clarity Turbid (Clear); Urine Color Light-Yellow (Yellow); Urine Mucus FEW (None Seen); Urine Protein, UAD TRACE (Negative); Urine Specific Gravity 1.035 (1.001-1.035); Urine Squamous Epithelial Cell FEW /hpf (<5); Urine Urobilinogen Normal (Negative); Urine WBC 48 /HPF (0-5); Urine pH 5.5 (5.0-9.0)
--- NOTE | 2024-06-08 08:29 | DVHHP2 ---
History of Present Illness Reason for Visit: Chest pain History of Present Illness This 78-year-old female with past medical history of PE, hypertension, dyslipidemia, depression, anxiety, GERD, restless leg syndrome, presents in the ED with a chief complaint of chest pain. The patient reports chest pressure pain lasted approximately 3 hours started last night while playing cards. The patient states that she took an nitroglycerin with no relief for which prompted her visit in the emergency department. In the ER, noted elevated D- dimer, the patient is currently on Eliquis due to multiple history of PE. The patient denies dizziness, syncope, diaphoresis, shortness of breath, or other acute symptoms. Past Medical History As stated in HPI Past Surgical History Denies Family History Reviewed, non-contributory to the management of this case. Past Social History The patient lives at home, denies smoking, alcohol or illicit drugs abuse. Review of Systems Constitutional: Yes: Malaise; No: Fever, Chills, Sweats, Weakness, Other Eyes: No: Pain, Vision change, Conjunctivae inflammation, Eyelid inflammation, Other, Redness ENT: No: Ear pain, Ear discharge, Nose pain, Nose discharge, Nose congestion, Mouth pain, Mouth swelling, Throat pain, Throat swelling, Other Respiratory: No: Cough, Dry, Shortness of breath, SOB with excertion, Wheezing, Hemoptysis, Pleuritic Pain, Sputum, Wheezing, Other Cardiovascular: Chest Pain; No: Palpitations, Orthopnea, Paroxysmal Noc. Dyspnea, Edema, Lt Headedness, Other Gastrointestinal: No: Nausea, Vomiting, Abdominal Pain, Diarrhea, Constipation, Melena, Hematochezia, Other Genitourinary: No Dysuria, No Frequency, No Incontinence, No Hematuria, No Re tention, No Other Musculoskeletal: No: other, neck pain, shoulder pain, arm pain, back pain, hand pain, leg pain, foot pain Skin: No: Rash, Lesions, Jaundice, Bruising, Other Neurological: No: Weakness, Numbness, Incoordination, Change in speech, Confusion, Seizures, Other Allergies: Coded Allergies: Iodine (Verified Allergy, Unknown, 05/31/24) Penicillins (Verified Allergy, Unknown, 01/09/21) Povidone Iodine (Verified Allergy, Unknown, 01/09/21) Uncoded Allergies: BANDAGES (Allergy, Unknown, 05/31/24) IV DYE (Allergy, Unknown, 01/12/22) Exam Vital Signs Vital Signs Date Time Temp Pulse Resp B/P (MAP) Pulse Ox O2 Delivery O2 Flow Rate FiO2 06/08/24 07:44 97.8 79 13 136/50 (78) 95 97.8 06/08/24 07:30 Room Air* 0 21 General Appearance: Alert, Oriented X3, No acute distress HEENT: Atraumatic, PERRLA, EOMI Respiratory: Clear to auscultation, Normal air movement Cardiovascular: Regular rate, Normal S1, Normal S2 Abdominal: Normal bowel sounds, Soft, No tenderness Extremities: No clubbing, No cyanosis, No edema, Normal pulses, Other (Left wrist fracture) Skin: No rashes, No breakdown, No significant lesion Neuro: Normal gait, Normal speech, Normal tone Psych/Mental Status: Mental status NL Labs/Xrays Labs Test 06/08/24 08:07 06/08/24 04:34 06/08/24 01:04 Range/Units Troponin I High Sensitivity 3 L </=34 ng/L White Blood Count 7.5 4.4-10.8 10^3/uL Red Blood Count 5.01 4.0-5.20 10^6/uL Hemoglobin 12.7 12.2-16.2 g/dL Hematocrit 39.0 36.0-46.0 % Mean Corpuscular Volume 77.8 L 80.0-100.0 fL Mean Corpuscular Hemoglobin 25.3 L 28.0-32.0 pg Mean Corpuscular Hemoglobin Concent 32.4 32.0-36.0 g/dL Red Cell Distribution Width 20.1 H 11.8-14.3 % Platelet Count 349 140-450 10^3/uL Mean Platelet Volume 8.8 6.9-10.8 fL Neutrophils (%) (Auto) 59.1 37.0-80.0 % Lymphocytes (%) (Auto) 24.5 10.0-50.0 % Monocytes (%) (Auto) 12.4 H 0.0-12.0 % Eosinophils (%) (Auto) 3.1 0.0-7.0 % Basophils (%) (Auto) 0.9 0.0-2.0 % Neutrophils # (Auto) 4.4 1.6-8.6 10 ^3/uL Lymphocytes # (Auto) 1.8 0.4-5.4 10 ^3/uL Monocytes # (Auto) 0.9 0-1.3 10 ^3/uL Eosinophils # (Auto) 0.2 0-0.8 10 ^3/uL Basophils # (Auto) 0.1 0-0.2 10 ^3/uL Nucleated Red Blood Cells 0.1 % Platelet Estimate Adequate Anisocytosis (manual) Slight Microcytosis Slight D-Dimer, Quantitative 0.52 H 0.0-0.49 mg/L FEU Sodium Level 137 136-145 mmol/L Potassium Level 4.0 3.5-5.1 mmol/L Chloride Level 104 98-107 mmol/L Carbon Dioxide Level 26 20-31 mmol/L Anion Gap 7 5-15 Blood Urea Nitrogen 17 9-23 mg/dL Creatinine 0.74 0.550-1.02 mg/dL Glomerular Filtration Rate Calc 83 >90 mL/min BUN/Creatinine Ratio 23.0 H 10.0-20.0 Serum Glucose 100 74-106 mg/dL Calcium Level 9.7 8.7-10.4 mg/dL Total Bilirubin 0.3 0.2-1.0 mg/dL Aspartate Amino Transferase (AST) 12 L 13-40 U/L Alanine Aminotransferase (ALT) 12 7-40 U/L Alkaline Phosphatase 95 46-116 U/L B-Type Natriuretic Peptide 10.56 0-100 pg/mL Total Protein 7.3 5.7-8.2 g/dL Albumin 4.7 3.2-4.8 g/dL PROCEDURE(s): CXR1 - CHEST XRAY 1 VIEW REASON: cp ORDER NUMBER(s): [id number], ACCESSION NUMBER(s): [id number] CHEST RADIOGRAPH Indication: cp Technique: Single frontal view of the chest was obtained COMPARISON: XY CHEST PORTABLE on DOS: 10/10/23, XY CHEST PORTABLE on DOS: 08/21/23, XY CHEST PORTABLE on DOS: 07/31/23, XY CHEST PORTABLE on DOS: 03/12/23, XY CHEST PORTABLE on DOS: 01/09/23 FINDINGS: Lines and Tubes: None Lungs: Clear Pleura: No effusion. No pneumothorax. Cardiomediastinal contours: Unremarkable Bones: Unremarkable IMPRESSION: 1. No acute disease. Assessment/Plan Assessment/Plan # Chest pain to rule out ACS Admit to telemetry unit Chest pain protocol Cardiology consult Monitor for chest pain Echo (06/06/24) EF 65% # Elevated Ddimer # hx of multiple PE on Eliquis V/Q scan pending Continue Eliquis # hypertension Torsemide Hydralazine as needed # hyperlipidemia Pravastatin Lipid panel # restless leg syndrome Ropinirole # anxiety, depression Fluoxetine # GERD Protonix # left wrist fracture Cast fracture Medical plan discussed with patient Plan discussed with: Patient My Orders Orders - EDSON DEAN Procedure Category Date Status Time Urinalysis LAB 06/08/24 In Process 07:[address] 06/08/24 Logged Contrast 07:36 Admit ADMIT 06/08/24 Transmitted 08:24 Code Status CODE 06/08/24 Transmitted 08:24 Hydrocodone-Acet PHA 06/08/24 Transmitted 5/325mg Tab (Jachin 08:30 Ondansetron Hcl PHA 06/08/24 Transmitted (Zofran) 08:30 Fall Risk Precautions NO 06/08/[address] 08:24 Complete Blood Count LAB 06/09/24 Verified 04:00 Comprehensive LAB 06/09/24 Verified Metabolic Panel 04:00 Cardiac DIET 06/08/24 Transmitted Diet-2gna,Lofat,Lochol Breakfast Condition: Fair NO 06/08/24 Transmitted 08:24 Acetaminophen Tablet PHA 06/08/24 Transmitted (Tylenol Tablet) 08:30 Morphine Sulfate PHA 06/08/24 Transmitted Injection 08:30 Nitroglycerin PHA 06/08/24 Transmitted Sublingual (Ntrostat 08:30 Morphine Sulfate PHA 06/08/24 Transmitted Injection 08:30 Stat Ekg For Chest NO 06/08/24 Transmitted Pain 08:24 Notify Md Of Changes NO 06/08/24 Transmitted From Base 08:24 Bridge Teacher For NO 06/08/24 Transmitted 24 Hours 08:24 Emergency Dysrhythmia NO 06/08/24 Transmitted Protocol 08:24 Rhythm Strips Once NO 06/08/24 Transmitted Every Shift 08:24 Oxygen By Nasal RT 06/08/24 Transmitted Cannula 08:24 Nm Vq Scan NM 06/08/24 Transmitted 08:24 Date of Service: Jun 08, 2024 Billing Provider: EDSON DEANP Common Visit Codes: [id number] INP/OBS CARE (HIGH) EDSON DEANP Jun 08, 2024 08:29
[2024-06-08] MEDS ORDERED: HYDROcodone-ACET 5/325MG TAB PO PRN (08:30)
[2024-06-08] MEDS ORDERED: MORPHINE SULFATE INJ 2 MG/ml SYRG IV PRN ×2 (08:30)
[2024-06-08] MEDS ORDERED: NITROGLYCERIN 0.4 MG SL TAB SL PRN (08:30)
[2024-06-08] MEDS ORDERED: ONDANSETRON HCL 4 MG/2 ML VIAL IV PRN (08:30)
[2024-06-08] MEDS ORDERED: ACETAMINOPHEN 325 MG TAB PO PRN (08:30)
[2024-06-08] MEDS ORDERED: hydrALAZINE HCL 20 MG/ML VL IV PRN (09:00)
[2024-06-08 09:48] LABS: Triglycerides 95 mg/dL (< 150)
[2024-06-08 09:53] LABS: Cholesterol 208 mg/dL (< 200); HDL Cholesterol 68 mg/dL (40-59); LDL Cholesterol 131 mg/dL (< 100)
[2024-06-08] MEDS: FLUoxetine HCL 20 MG CAP PO SCH (10:20)
[2024-06-08] MEDS: PANTOPRAZOLE 40 MG TAB PO SCH (10:20)
[2024-06-08] MEDS: APIXABAN 5 MG TAB PO SCH (10:20)
[2024-06-08] MEDS: REQUIP 4 MG PO SCH (10:24)
[2024-06-08] MEDS: TORSEMIDE 10 MG PO SCH (10:24)
[2024-06-08] MEDS ORDERED: ASPI1TAB20 PO (12:20)
[2024-06-08] MEDS ORDERED: ROSU20TA14 PO (12:20)
[2024-06-08] MEDS ORDERED: LEVO500T91 PO (12:22)
--- NOTE | 2024-06-08 12:28 | DVHDS2 ---
Discharge Summary Date of Admission Jun 08, 2024 at 08:24 Date of Discharge: Jun 08, 2024 Admitting Diagnosis Pleuritic Chest Pain Labs/Diagnostic Data: Laboratory Results Test 06/08/24 08:07 06/08/24 04:34 06/08/24 01:04 Urine Color Light-yellow (Yellow) Urine Clarity Turbid (Clear) Urine pH 5.5 (5.0-9.0) Urine Specific [place] 1.035 (1.001-1.035) Urine Protein Trace (Negative) Urine Ketones Negative (Negative) Urine Blood Negative /uL (Negative) Urine Nitrite Negative (Negative) Urine Bilirubin Negative (Negative) Urine Urobilinogen Normal mg/dL (Negative) Urine Leukocyte Esterase 3+ /uL (Negative) Urine RBC 6 /hpf (0 - 4) Urine Microscopic WBC 48 /HPF (0-5) Urine Squamous Epithelial Cells Few /hpf (<5) Urine Bacteria Few /hpf (None Seen) Urine Mucus Few (None Seen) Urine Glucose Normal mg/dL (Normal) Troponin I High Sensitivity 3 ng/L (</=34) Triglycerides Level 95 mg/dL (< 150) Cholesterol Level 208 mg/dL (< 200) LDL Cholesterol 131 mg/dL (< 100) HDL Cholesterol 68 mg/dL (40-59) White Blood Count 7.5 10^3/uL (4.4-10.8) Red Blood Count 5.01 10^6/uL (4.0-5.20) Hemoglobin 12.7 g/dL (12.2-16.2) Hematocrit 39.0 % (36.0-46.0) Mean Corpuscular Volume 77.8 fL (80.0-100.0) Mean Corpuscular Hemoglobin 25.3 pg (28.0-32.0) Mean Corpuscular Hemoglobin Concent 32.4 g/dL (32.0-36.0) Red Cell Distribution Width 20.1 % (11.8-14.3) Platelet Count 349 10^3/uL (140-450) Mean Platelet Volume 8.8 fL (6.9-10.8) Neutrophils (%) (Auto) 59.1 % (37.0-80.0) Lymphocytes (%) (Auto) 24.5 % (10.0-50.0) Monocytes (%) (Auto) 12.4 % (0.0-12.0) Eosinophils (%) (Auto) 3.1 % (0.0-7.0) Basophils (%) (Auto) 0.9 % (0.0-2.0) Neutrophils # (Auto) 4.4 10 ^3/uL (1.6-8.6) Lymphocytes # (Auto) 1.8 10 ^3/uL (0.4-5.4) Monocytes # (Auto) 0.9 10 ^3/uL (0-1.3) Eosinophils # (Auto) 0.2 10 ^3/uL (0-0.8) Basophils # (Auto) 0.1 10 ^3/uL (0-0.2) Nucleated Red Blood Cells 0.1 % Platelet Estimate Adequate Anisocytosis (manual) Slight Microcytosis Slight D-Dimer, Quantitative 0.52 mg/L FEU (0.0-0.49) Sodium Level 137 mmol/L (136-145) Potassium Level 4.0 mmol/L (3.5-5.1) Chloride Level 104 mmol/L (98-107) Carbon Dioxide Level 26 mmol/L (20-31) Anion Gap 7 (5-15) Blood Urea Nitrogen 17 mg/dL (9-23) Creatinine 0.74 mg/dL (0.550-1.02) Glomerular Filtration Rate Calc 83 mL/min (>90) BUN/Creatinine Ratio 23.0 (10.0-20.0) Serum Glucose 100 mg/dL (74-106) Calcium Level 9.7 mg/dL (8.7-10.4) Total Bilirubin 0.3 mg/dL (0.2-1.0) Aspartate Amino Transferase (AST) 12 U/L (13-40) Alanine Aminotransferase (ALT) 12 U/L (7-40) Alkaline Phosphatase 95 U/L (46-116) B-Type Natriuretic Peptide 10.56 pg/mL (0-100) Total Protein 7.3 g/dL (5.7-8.2) Albumin 4.7 g/dL (3.2-4.8) Other Laboratory Tests 06/08/24 01:04 Brief Hx & Hospital Course: This 78-year-old female with past medical history of PE, hypertension, dyslipidemia, depression, anxiety, GERD, restless leg syndrome, presents in the ED with a chief complaint of chest pain. The patient reports chest pressure pain lasted approximately 3 hours started last night while playing cards.Patient had a ECHO done on 06/02/24 see below. Patient will be discharged home with Crestor instead of Pravachol, Aspirin, and Levaquin or UTI. See Dr Bynum this week. Condition at Discharge: Stable Final Diagnosis/Problems List Pleuritic Chest Pain UTI Left Forearm Fracture Dyslipidemia Discharge Disposition: Home Discharge Instruct/Medications Diet: Cardiac 2g Na,low cholest (2 gm sodium, low cholesterol) Activity: Light activity Follow Up/Referral: Dr. Bynum on Sunday Ortho Medications: See Med [facility] Discharge Statement: "Patient was advised to return to the ER or call 911 if any headaches, dizziness, shortness of breath, chest pain, abdominal pain, bleeding, fevers, or worsening of medical condition. Patient was counseled about treatment plan, medications, possible side effects, patientverbalized understanding. All questions were answered to the best of my ability. This discharge took greater then 30 minutes in planning, reviewing documentation, counseling the patient, and discussing with other team members." ASSESSMENT ASSESSMENT Assessment Date of Service: Jun 08, 2024 Billing Provider: ABAD JACKSON MD Common Visit Codes: 23613-HWL/OBS DISCH DAY >30min ABAD JACKSON MD Jun 08, 2024 12:28
[2024-06-08 13:28] VITALS: BP 105/72; PULSE 78; RESP 18; TEMP 98; O2SAT 97
[2024-06-08] MEDS: levoFLOXacin 500 MG TAB PO ONE (13:45)
[2024-06-08 14:34] VITALS: BP 122/76; PULSE 79; RESP 14; O2SAT 95
[2024-06-08] MEDS ORDERED: PRAVASTATIN SODIUM 20 MG TAB PO SCH (22:00)
== END 2024-06-08 14:36 | disposition home or self-care (01) | DRG 313 ==
LOC: EDBD 00:42 → ER 00:42 → OVERFLOW 08:24
PROVIDERS: ADMIT Internal Medicine; ATTEND Internal Medicine
DX: R07.89 Other chest pain (principal); S52.92XA Unspecified fracture of left forearm, initial encounter for closed fracture; N39.0 Urinary tract infection, site not specified; E78.5 Hyperlipidemia, unspecified; F17.210 Nicotine dependence, cigarettes, uncomplicated; S62.102A Fracture of unspecified carpal bone, left wrist, initial encounter for closed fracture; F32.A Depression, unspecified; F41.9 Anxiety disorder, unspecified; I50.9 Heart failure, unspecified; I11.0 Hypertensive heart disease with heart failure; J45.909 Unspecified asthma, uncomplicated; X58.XXXA Exposure to other specified factors, initial encounter; G25.81 Restless legs syndrome; K21.9 Gastro-esophageal reflux disease without esophagitis; Z79.01 Long term (current) use of anticoagulants; Z91.041 Radiographic dye allergy status; Z88.0 Allergy status to penicillin; Z88.8 Allergy status to other drugs, medicaments and biological substances; Z91.018 Allergy to other foods; Z79.899 Other long term (current) drug therapy; Z83.3 Family history of diabetes mellitus; Z82.49 Family history of ischemic heart disease and other diseases of the circulatory system; Z90.710 Acquired absence of both cervix and uterus; Z86.73 Personal history of transient ischemic attack (TIA), and cerebral infarction without residual deficits; Z86.711 Personal history of pulmonary embolism; Y93.89 Activity, other specified; Y92.89 Other specified places as the place of occurrence of the external cause; Y99.8 Other external cause status; Z79.82 Long term (current) use of aspirin
CPT/HCPCS: 36415; 71045; 80053; 80061; 81001; 83880; 84484; 85025; 85379; 93005; G0378

== ENCOUNTER → 2024-06-09 | Outpatient (CLI) | payer OTHER ==
[~2024-06-09] MED LIST changes: +ASPI1TAB20 PO; +LEVO500T91 PO; -PRAV20TA3 PO; +ROSU20TA14 PO
[2024-06-09 11:42] LABS: Basophils # (auto) 0.1 10 ^3/uL (0-0.2); Basophils % (auto) 1.2 % (0.0-2.0); Eosinophils # (auto) 0.2 10 ^3/uL (0-0.8); Hematocrit 38.9 % (36.0-46.0); Hemoglobin 12.3 g/dL (12.2-16.2); Lymphocytes # (auto) 1.1 10 ^3/uL (0.4-5.4); Lymphocytes % (auto) 22.7 % (10.0-50.0); Mean Corpuscular Hemoglobin 24.5 pg (28.0-32.0); Mean Corpuscular Hgb Conc. 31.6 g/dL (32.0-36.0); Mean Corpuscular Volume 77.6 fL (80.0-100.0); Monocytes # (auto) 0.5 10 ^3/uL (0-1.3); Monocytes % (auto) 10.5 % (0.0-12.0); Neutrophils # (auto) 2.9 10 ^3/uL (1.6-8.6); Neutrophils % (auto) 61.6 % (37.0-80.0); Nucleated Red Blood Cells % 0.1 %; Platelet Count (auto) 319 10^3/uL (140-450); Red Blood Cells 5.02 10^6/uL (4.0-5.20); White Blood Cell 4.7 10^3/uL (4.4-10.8)
[2024-06-09 12:14] LABS: Creatinine, Urine 82.13 mg/dL (30.0-125.0)
[2024-06-09 12:21] LABS: Micro Albumin < 3.0 mg/L (<30.0)
[2024-06-09 12:22] LABS: Alanine Aminotransferase 14 U/L (7-40); Albumin 4.5 g/dL (3.2-4.8); Alkaline Phosphatase 95 U/L (46-116); Anion Gap 8 (5-15); Aspartate Aminotransferase 14 U/L (13-40); BUN/Creatinine Ratio 14.7 (10.0-20.0); Blood Urea Nitrogen 10 mg/dL (9-23); Calcium 9.4 mg/dL (8.7-10.4); Carbon Dioxide 25 mmol/L (20-31); Chloride 107 mmol/L (98-107); Glucose 102 mg/dL (74-106); Potassium 3.9 mmol/L (3.5-5.1); Sodium 140 mmol/L (136-145); Total Protein 6.8 g/dL (5.7-8.2); Triglycerides 113 mg/dL (< 150)
[2024-06-09 12:23] LABS: Bilirubin, Total 0.3 mg/dL (0.2-1.0); Cholesterol 192 mg/dL (< 200); HDL Cholesterol 63 mg/dL (40-59); LDL Cholesterol 113 mg/dL (< 100)
[2024-06-09 12:25] LABS: Erythrocyte Sedimentation Rate 11 mm/hr (0-20)
== END | disposition home or self-care (01) ==
LOC: LAB 11:08
PROVIDERS: ATTEND Internal Medicine
DX: E55.9 Vitamin D deficiency, unspecified (principal); E78.5 Hyperlipidemia, unspecified; E53.8 Deficiency of other specified B group vitamins; M54.6 Pain in thoracic spine
CPT/HCPCS: 36415; 80053; 80061; 82043; 82306; 82570; 82607; 83036; 85025; 85652

== ENCOUNTER → 2024-07-01 | Outpatient (CLI) | payer OTHER ==
--- NOTE | 2024-07-01 08:46 | DVH ---
NUCLEAR MEDICINE VENTILATION/PERFUSION LUNG SCAN. INDICATION: HTN COMPARISON: None TECHNIQUE: Following intravenous demonstration of 4.2 millicuries of technetium 99m MAA, and inhala tion of 5 mCi of Xe 133 scintigrams were obtained in multiple projections of the lungs. FINDINGS: There is normal uptake of radionuclide on both the ventilation and perfusion portions of the examinat ion. No mismatched perfusion defects are demonstrated. Uptake is normally homogeneous. IMPRESSION: Low probability for PE.
--- NOTE | 2024-07-01 09:16 | DVH ---
INDICATION: RULE OUT PE TECHNIQUE: Frontal view of the chest. COMPARISON: XY CHEST XRAY 1 VIEW on DOS: 06/08/24, XY CHEST PORTABLE on DOS: 10/10/23, XY CHEST PORTABL E on DOS: 08/21/23, XY CHEST PORTABLE on DOS: 07/31/23, XY CHEST PORTABLE on DOS: 03/12/23 FINDINGS: . The heart and mediastinal contours are grossly unremarkable. There is no evidence of pleural disea se. The lungs are clear. The bony structures of the chest are intact without fracture. IMPRESSION: 1. No evidence of acute disease.
== END | disposition home or self-care (01) ==
LOC: XYW 07:33
PROVIDERS: ATTEND Internal Medicine
DX: I27.20 Pulmonary hypertension, unspecified (principal)
CPT/HCPCS: 71045; 78582; A9540; A9558

== ENCOUNTER 2024-09-09 09:04 | Outpatient (CLI) | payer OTHER ==
[~2024-09-09] VITALS: Ht 154.9 cm; Wt 72.6 kg
[2024-09-09] MEDS: REGADENOSON 0.4 MG/5 ML SYRG IV ONE ×2 (11:21→11:22)
--- NOTE | 2024-09-22 07:39 | DVHSR ---
APPROVED REPORT Exam: Nuclear Stress Test Indication: SOB BMI: 0 Medical History Medical History: PULMONARY HTN, Recurrent Pulmonary embolism's, TEPH (chronic thromboembolic pulomary HTN) Stress Test Details Stress Test: Pharmacologic stress testing performed using 0.4 mg of regadenoson per 5 mL given IV ov er 10 seconds. HR Resting HR: 69 bpmMax Heart Rate (APMHR): 141.293048 bpm Max HR Achieved: 92 bpmTarget HR (85% APMHR): 119.159327 bpm % of APMHR: 65.25 Recovery HR: 84 bpm BP Resting BP: 137/72 mmHg Recovery BP: 135/66 mmHg ECG Resting ECG: Sinus Rhythm Clinical Reason for Termination: Completed protocol Stress ECG Conclusion lvef 67% normal perfusion scan NM EXAM: Myocardial Perfusion REST/STRESS Imaging Protocol: Rest Tc-99m/Stress Tc-99m 1 day Resting Data Rest SPECT myocardial perfusion imaging was performed in supine position 60 minutes following the int ravenous injection of 12.4 mCi of Tc-99m Sestamibi. Time of rest injection: 09:40 Date: 09/09/2024 Time of rest imagin:40 Date: 09/09/2024 Administration Route: IV Administration Site: Left Hand Pharmacologic Stress Pharmacologic stress test was performed by injecting Regadenoson 0.4 mg IV push followed by the intra venous injection of 29.3 mCi of Tc-99m Sestamibi. Time of stress injection: 11:15 Date: 09/09/2024 Time of stress imagin:15 Date: 09/09/2024 Administration Route: IV Administration Site: Left Hand Gated Stress SPECT was performed 60 minutes after stress injection. The images were gated to evaluate regional wall motion and calculate left ventricular ejection fracti on. Stress only was performed in the Supine position. Nuclear Conclusion Nuclear Findings: negative for ischemia lvef 67% normal perfusion scan
== END 2024-09-09 17:00 | disposition home or self-care (01) ==
LOC: XYW 09:04
PROVIDERS: ATTEND Internal Medicine
DX: R06.02 Shortness of breath (principal); I10 Essential (primary) hypertension; I27.24 Chronic thromboembolic pulmonary hypertension; Z86.711 Personal history of pulmonary embolism; I27.20 Pulmonary hypertension, unspecified
CPT/HCPCS: 78452; 93017; A9500; J2785

== ENCOUNTER 2024-09-09 12:26 | Outpatient (CLI) | payer OTHER ==
[2024-09-09 13:10] LABS: Alanine Aminotransferase 17 U/L (7-40); Albumin 4.9 g/dL (3.2-4.8); Alkaline Phosphatase 83 U/L (46-116); Anion Gap 9 (5-15); Aspartate Aminotransferase 18 U/L (<34); BUN/Creatinine Ratio 14.3 (10.0-20.0); Bilirubin, Total 0.3 mg/dL (0.2-1.0); Blood Urea Nitrogen 11 mg/dL (9-23); Calcium 9.9 mg/dL (8.7-10.4); Carbon Dioxide 30 mmol/L (20-31); Chloride 102 mmol/L (98-107); Glucose 108 mg/dL (74-106); Potassium 3.8 mmol/L (3.5-5.1); Sodium 141 mmol/L (136-145); Total Protein 7.4 g/dL (5.7-8.2)
== END 2024-09-09 17:00 | disposition home or self-care (01) ==
LOC: LAB 12:26
PROVIDERS: ATTEND Internal Medicine
DX: I10 Essential (primary) hypertension (principal); I27.20 Pulmonary hypertension, unspecified
CPT/HCPCS: 36415; 80053

== ENCOUNTER 2024-09-30 10:38 | Outpatient (CLI) | payer OTHER | END 2024-09-30 17:46 | disposition home or self-care (01) | LOC: LAB 10:38 | PROVIDERS: ATTEND Internal Medicine | DX: I10 Essential (primary) hypertension (principal); E55.9 Vitamin D deficiency, unspecified; R73.03 Prediabetes | CPT/HCPCS: 82306; 82607 ==

== ENCOUNTER → 2025-03-25 | Outpatient (CLI) | payer OTHER ==
[2025-03-25 11:24] LABS: Hemoglobin 12.5 g/dL (12.2-16.2)
[2025-03-25 11:26] LABS: Hematocrit 38.0 % (36.0-46.0); Mean Corpuscular Hemoglobin 24.2 pg (28.0-32.0); Mean Corpuscular Volume 73.3 fL (80.0-100.0); Nucleated Red Blood Cells % 0.1 %
[2025-03-25 12:05] LABS: Alanine Aminotransferase 19 U/L (7-40); Albumin 4.5 g/dL (3.2-4.8); Alkaline Phosphatase 82 U/L (46-116); Anion Gap 9 (5-15); BUN/Creatinine Ratio 11.4 (10.0-20.0); Calcium 9.3 mg/dL (8.7-10.4); Carbon Dioxide 28 mmol/L (20-31); Chloride 103 mmol/L (98-107); Glucose 103 mg/dL (74-106); Potassium 4.2 mmol/L (3.5-5.1); Sodium 140 mmol/L (136-145); Total Protein 6.9 g/dL (5.7-8.2)
[2025-03-25 12:06] LABS: Bilirubin, Total 0.5 mg/dL (0.2-1.0)
[2025-03-25 12:09] LABS: Blood Urea Nitrogen 8 mg/dL (9-23)
== END | disposition home or self-care (01) ==
LOC: LAB 10:51
PROVIDERS: ATTEND Internal Medicine
DX: N39.0 Urinary tract infection, site not specified (principal); R10.A1 Flank pain, right side
CPT/HCPCS: 36415; 80053; 85025